=== PATIENT | female | born 1940 | race Caucasian/White ===

== ENCOUNTER 2018-03-05 11:50 | Emergency (ER) | payer MEDICARE, OTHER ==
[~2018-03-05] VITALS: Ht 154.9 cm; Wt 62.6 kg
[~2018-03-05 11:50] MED LIST: AMLO10TA2 PO; ATEN50TA PO; ATOR40TA59 PO; CLOP75TA PO; ESOM40CA PO; HYDR-971 PO; HYDR12.53 PO; LISI-130 PO; LISI-334 PO; OMEP40CA5 PO; ONDA4TAB10 SL; POTA20PA PO; SIMV20TA3 PO
[2018-03-05] MEDS ORDERED: IV NORMAL SALINE 1000ML BAG 1,000 ML IV ONE (12:00)
[2018-03-05 12:05] LABS: BASO % 1 % (0-3); EOS # 0.1 x10^3/uL (0.0-0.7); EOS % 2 % (0-3); HEMATOCRIT 42.3 % (36.0-47.0); HEMOGLOBIN 14.5 g/dL (12.0-15.5); LYMPH # 1.7 x10^3/uL (1.0-4.8); LYMPH % 34 % (24-48); MEAN CORPUSCULAR HEMOGLOBIN 32 pg (25-35); MEAN CORPUSCULAR HGB CONC 34 g/dL (31-37); MEAN CORPUSCULAR VOLUME 94 fL (79-100); MONO # 0.5 x10^3/uL (0.0-1.1); MONO % 9 % (0-9); NEUT # 2.7 x10^3uL (1.8-7.7); NEUT % 53 % (31-73); PLATELET COUNT 119 x10^3/uL (140-400); RED BLOOD COUNT 4.53 x10^6/uL (3.50-5.40); RED CELL DISTRIBUTION WIDTH 14.6 % (11.5-14.5); WHITE BLOOD COUNT 5.1 x10^3/uL (4.0-11.0)
[2018-03-05 12:15] LABS: PROTHROMBIN TIME PATIENT 13.3 SEC (11.7-14.0)
[2018-03-05 12:19] LABS: CALCIUM 9.1 mg/dL (8.5-10.1); CREATININE 1.6 mg/dL (0.6-1.0); GFR 31.1; POTASSIUM 3.3 mmol/L (3.5-5.1)
--- NOTE | 2018-03-05 12:24 | RAD ---
EXAM: CHEST 1 VIEW History: Weakness COMPARISON: 05/24/2017 TECHNIQUE: Single portable radiograph of the chest FINDINGS: The cardiac silhouette is unremarkable. The lungs are clear bilaterally. The costophrenic sulci are clear and well demarcated. IMPRESSION: No radiographic evidence of an acute cardiopulmonary process. Electronically signed by: Ulices Peña MD (03/05/2018 12:20 PM) [id number]
[2018-03-05 12:25] LABS: ALBUMIN 3.4 g/dL (3.4-5.0); ALBUMIN/GLOBULIN RATIO 0.8 (1.0-1.7); MAGNESIUM 1.5 mg/dL (1.8-2.4); TOTAL BILIRUBIN 0.5 mg/dL (0.2-1.0); TOTAL PROTEIN 7.5 g/dL (6.4-8.2)
--- NOTE | 2018-03-05 12:28 | RAD ---
CT HEAD INDICATION: WEAKNESS, altered mental status, PRIOR SENT COMPARISON: None Available. TECHNIQUE: 5 mm contiguous axial images were obtained from the skull base to the vertex. Exposure: One or more of the following individualized dose reduction techniques were utilized for this examination: 1. Automated exposure control 2. Adjustment of the mA and/or kV according to patient size 3. Use of iterative reconstruction technique FINDINGS: Moderate-sized hypodensity identified in the posterior left parietal lobe likely known infarct . Mild bilateral periventricular white matter hypodensities likely chronic small vessel ischemic disease. No evidence of acute intracranial hemorrhage. No extra-axial fluid collections. No mass effect or midline shift. Ventricular size is appropriate. Basal cisterns are patent. No fractures identified.Globes and orbits are within normal limits. Mild mucosal thickening identified in the right maxillary sinus. IMPRESSION: Moderate-sized hypodensity identified in the posterior left parietal lobe likely known infarct (as seen on MRI from 05/25/2017). If there is clinical suspicion for acute infarct, MRI is recommended. Electronically signed by: Ulices Peña MD (03/05/2018 12:24 PM) [id number]
[2018-03-05 12:40] LABS: CREATINE KINASE 32 U/L (26-192)
--- NOTE | 2018-03-05 13:18 | EKG ---
[facility] [address] [place] [address] Test Date: 2018-03-05 Test Time: 11:55:28 Pat Name: JOEL WINTER Department: Room: Gender: F Senior [employer] Developer: AVINASH : 1940 Requested By: ULYSSES ZAIDI Order Number: [id number] Reading MD: Nicola Renee MD Measurements Intervals [place] Rate: 71 P: 62 [place]: 204 QRS: 14 QRSD: 86 T: 165 QT: 388 QTc: 426 Interpretive Statements SINUS RHYTHM LVH WITH REPOLARIZATION ABNORMALITY Electronically Signed On 03-06-2018 15:26:25 CDT by Nicola Renee MD
[2018-03-05 13:20] LABS: PLT ESTIMATE DECREASED (ADEQUATE)
[2018-03-05] MEDS ORDERED: NICOTINE 21MG PATCH. TD SCH (13:41)
[2018-03-05 13:56] LABS: BARBITURATES NEG (NEG); BENZODIAZEPINES NEG (NEG); CANNABINOIDS NEG (NEG); COCAINE NEG (NEG); METHADONE NEG (NEG); OPIATES NEG (NEG); PHENCYCLIDINE NEG (NEG)
[2018-03-05 13:57] LABS: AMPHETAMINE/METHAMPHETAMINE NEG (NEG)
[2018-03-05] MEDS ORDERED: MAGNESIUM HYDROXIDE 2,400 MG/30 ML ORAL.SUSP. PO PRN (14:00)
[2018-03-05] MEDS ORDERED: oxyCODONE IR 5 MG TABLET PO PRN (14:00)
[2018-03-05] MEDS ORDERED: HYDROcodone/APAP 5/325MG 1 TAB TABLET PO PRN (14:00)
[2018-03-05] MEDS ORDERED: PROCHLORPERAZINE 25 MG SUPP.RECT. PR PRN (14:00)
[2018-03-05] MEDS ORDERED: CALCIUM CARBONATE 500 MG TAB.CHEW PO PRN (14:00)
[2018-03-05] MEDS ORDERED: MAG HYDROX/ALUMINUM HYD/SIMETH 30 ML ORAL.SUSP PO PRN (14:00)
[2018-03-05] MEDS ORDERED: ONDANSETRON ODT 4 MG TAB.RAPDIS. PO PRN (14:00)
[2018-03-05] MEDS ORDERED: ACETAMINOPHEN 325 MG TABLET. PO PRN (14:00)
[2018-03-05] MEDS ORDERED: BISACODYL 10 MG SUPP.RECT. PR PRN (14:00)
[2018-03-05] MEDS ORDERED: PROCHLORPERAZINE 10 MG/2 ML VIAL. IV PRN (14:00)
[2018-03-05] MEDS ORDERED: POTASSIUM CHLORIDE 20 MEQ TABLET.ER. PO ONE (14:00)
[2018-03-05] MEDS ORDERED: fentaNYL PF VIAL 100 MCG/2 ML VIAL IV PRN (14:00)
[2018-03-05] MEDS ORDERED: ONDANSETRON PF 4 MG/2 ML VIAL. IV PRN (14:00)
[2018-03-05] MEDS ORDERED: IV 1/2 NORMAL SALINE 1,000 ML IV ONE (14:00)
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
[2018-03-05 14:15] VITALS: BP 133/63
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
[2018-03-05 16:42] LABS: BILIRUBIN,URINE NEGATIVE (NEG); CLARITY,URINE CLEAR; NITRITE,URINE NEGATIVE (NEG); PROTEIN,URINE NEGATIVE (NEG-TRACE); UROBILINOGEN,URINE 0.2 mg/dL (0.2 mg/dL)
[2018-03-05 16:51] LABS: RBC,URINE OCC /HPF (0-2)
[2018-03-05 16:52] LABS: BACTERIA,URINE MODERATE /HPF (0-FEW); COLOR,URINE STRAW; SQUAMOUS EPITHELIAL CELL,UR MANY /LPF
[2018-03-05] MEDS ORDERED: ATORVASTATIN CALCIUM 40 MG TABLET. PO SCH (21:00)
[2018-03-05] MEDS ORDERED: DOCUSATE SODIUM 100 MG CAPSULE. PO SCH (21:00)
[2018-03-06] MEDS ORDERED: PANTOPRAZOLE 40 MG TABLET.DR. PO SCH (07:30)
[2018-03-06] MEDS ORDERED: CLOPIDOGREL BISULFATE 75 MG TABLET PO SCH (08:00)
[2018-03-06] MEDS ORDERED: POTASSIUM CHLORIDE 20 MEQ TABLET.ER. PO SCH (08:00)
[2018-03-06] MEDS ORDERED: amLODIPine BESYLATE 10 MG TABLET PO SCH (09:00)
[2018-03-06] MEDS ORDERED: LISINOPRIL 20 MG TABLET PO SCH (09:00)
[2018-03-06] MEDS ORDERED: hydroCHLOROthiazide 12.5 MG CAPSULE PO SCH (09:00)
== END 2018-03-05 14:57 | disposition home or self-care (01) ==
LOC: ER 11:50 → 5 SOUTH 13:50 → UNDOADMIN 13:50 → ER 14:57
DX: F43.9 Reaction to severe stress, unspecified (principal); R53.1 Weakness; R00.1 Bradycardia, unspecified; F17.200 Nicotine dependence, unspecified, uncomplicated; E78.00 Pure hypercholesterolemia, unspecified; Z90.49 Acquired absence of other specified parts of digestive tract; Z90.89 Acquired absence of other organs; Z86.73 Personal history of transient ischemic attack (TIA), and cerebral infarction without residual deficits; Z88.5 Allergy status to narcotic agent
CPT/HCPCS: 36415; 70450; 71045; 80053; 80307; 81001; 82553; 83735; 83880; 84443; 84484; 85025; 85610; 87086; 93005; 99285; J7030; G0479

== ENCOUNTER 2018-05-22 17:02 | Inpatient (IN) | payer MEDICARE, OTHER ==
[~2018-05-22] VITALS: Ht 154.9 cm; Wt 46.7 kg
[~2018-05-22 17:02] MED LIST changes: -AMLO10TA2 PO; +AMLO10TA6 PO; -POTA20PA PO; +POTA20PA30 PO
[2018-05-22 18:28] LABS: BASO % 1 % (0-3); EOS # 0.1 x10^3/uL (0.0-0.7); EOS % 2 % (0-3); HEMATOCRIT 41.3 % (36.0-47.0); HEMOGLOBIN 13.9 g/dL (12.0-15.5); LYMPH % 23 % (24-48); MEAN CORPUSCULAR HEMOGLOBIN 31 pg (25-35); MEAN CORPUSCULAR HGB CONC 34 g/dL (31-37); MEAN CORPUSCULAR VOLUME 93 fL (79-100); MONO # 0.4 x10^3/uL (0.0-1.1); MONO % 10 % (0-9); NEUT # 2.8 x10^3uL (1.8-7.7); NEUT % 65 % (31-73); PLATELET COUNT 60 x10^3/uL (140-400); RED BLOOD COUNT 4.43 x10^6/uL (3.50-5.40); RED CELL DISTRIBUTION WIDTH 16.2 % (11.5-14.5); WHITE BLOOD COUNT 4.4 x10^3/uL (4.0-11.0)
[2018-05-22] MEDS ORDERED: ONDANSETRON PF 4 MG/2 ML VIAL. IV ONE (18:30)
[2018-05-22] MEDS ORDERED: IV NORMAL SALINE 1000ML BAG 1,000 ML IV ONE (18:30)
[2018-05-22 18:38] LABS: CALCIUM 9.1 mg/dL (8.5-10.1); CREATININE 3.5 mg/dL (0.6-1.0); GFR 12.6; POTASSIUM 5.2 mmol/L (3.5-5.1)
[2018-05-22 18:44] LABS: ALBUMIN 3.2 g/dL (3.4-5.0); ALBUMIN/GLOBULIN RATIO 0.9 (1.0-1.7); MAGNESIUM 1.5 mg/dL (1.8-2.4); TOTAL BILIRUBIN 0.5 mg/dL (0.2-1.0); TOTAL PROTEIN 6.6 g/dL (6.4-8.2)
[2018-05-22 19:00] LABS: PLT ESTIMATE DECREASED (ADEQUATE)
--- NOTE | 2018-05-22 19:54 | PHYS DOC ---
Past Medical History Past Medical History: A-Fib, CVA, Depression, GERD, High Cholesterol, Hypertension, Seizure, Other Additional Past Medical Histor: THROMBOCYTOPENIA Past Surgical History: Appendectomy, Cholecystectomy Alcohol Use: None Drug Use: None Adult General Chief Complaint Chief Complaint: OTHER COMPLAINTS HPI HPI Patient is a 77 year old female who presents with granddaughter for evaluation. Patient is alert to self year only. Grand-daughter is primary caregiver. She reports significant memory/functional decline over the past 3-4 months. Frequently confused and poor memory recall. Pt unable to contribute to history. Grand-daughter reports poor PO intake over the past 1-2 weeks. Pt reports nausea, ?gagging sensation with eating. Seen by PCP and started on zofran and Cipro for ?UTI. No improvement. Sent by PCP to ED for evaluation as pt has had increased generalized weakness. Pt denies any abdominal pain. no GI bleed symptoms. Review of Systems Review of Systems Constitutional: Denies fever or chills [] Eyes: Denies change in visual acuity, redness, or eye pain [] HENT: Denies nasal congestion or sore throat [] Respiratory: Denies cough or shortness of breath [] Cardiovascular: No chest pain, no orthopnea, no lower extremity edema GI: Denies abdominal pain, vomiting, bloody stools or diarrhea []Nausea present : Denies dysuria or hematuria [] Musculoskeletal: Denies back pain or joint pain [] Integument: Denies rash or skin lesions [] Neurologic: Denies headache, focal weakness or sensory changes [] Endocrine: Denies polyuria or polydipsia [] All other systems were reviewed and found to be within normal limits, except as documented in this note. Current Medications Current Medications Current Medications Medications (Trade) Dose Ordered Sig/Dulce Start Time Stop Time Status Last Admin Dose Admin Ondansetron HCl (Zofran) 8 mg 1X ONCE 05/22/18 18:30 05/22/18 18:31 DC 05/22/18 18:31 8 MG Sodium Chloride 1,000 ml @ 1,000 mls/hr 1X ONCE 05/22/18 18:30 05/22/18 19:29 DC 05/22/18 18:32 1,000 MLS/HR Allergies Allergies Allergies Coded Allergies Type Severity Reaction Last Updated Verified morphine Adverse Reaction Severe nausea/abdominal pain 12/24/14 Yes Physical Exam Physical Exam Constitutional: Well developed, well nourished, no acute distress, non-toxic appearance. [] HENT: Normocephalic, atraumatic, Eyes: PERRLA, EOMI, Neck: Normal range of motion, no tenderness, supple, no stridor. [] Cardiovascular:Heart rate regular rhythm, no murmur [] Lungs & Thorax: Bilateral breath sounds clear to auscultation [] Abdomen: Bowel sounds normal, soft, no tenderness, no masses, no pulsatile masses. [] Skin: Warm, dry, no erythema, no rash. [] Back: No tenderness, no CVA tenderness. [] Extremities: No tenderness, no edema. [] Neurologic: Alert and oriented X 2, no focal deficits noted. [] Psychologic: Affect normal, judgement normal, mood normal. [] Current Patient Data Vital Signs Vital Signs Date Time Temp Pulse Resp B/P (MAP) Pulse Ox O2 Delivery O2 Flow Rate FiO2 05/22/18 19:30 74 112/61 (78) 97 Room Air 05/22/18 17:36 97.4 20 97.4 Lab Values Laboratory Tests Test 05/22/18 18:02 White Blood Count 4.4 x10^3/uL (4.0-11.0) Red Blood Count 4.43 x10^6/uL (3.50-5.40) Hemoglobin 13.9 g/dL (12.0-15.5) Hematocrit 41.3 % (36.0-47.0) Mean Corpuscular Volume 93 fL (79-100) Mean Corpuscular Hemoglobin 31 pg (25-35) Mean Corpuscular Hemoglobin Concent 34 g/dL (31-37) Red Cell Distribution Width 16.2 % (11.5-14.5) H Platelet Count 60 x10^3/uL (140-400) L Neutrophils (%) (Auto) 65 % (31-73) Lymphocytes (%) (Auto) 23 % (24-48) L Monocytes (%) (Auto) 10 % (0-9) H Eosinophils (%) (Auto) 2 % (0-3) Basophils (%) (Auto) 1 % (0-3) Neutrophils # (Auto) 2.8 x10^3uL (1.8-7.7) Lymphocytes # (Auto) 1.0 x10^3/uL (1.0-4.8) Monocytes # (Auto) 0.4 x10^3/uL (0.0-1.1) Eosinophils # (Auto) 0.1 x10^3/uL (0.0-0.7) Basophils # (Auto) 0.0 x10^3/uL (0.0-0.2) Platelet Estimate Decreased (ADEQUATE) Large Platelets Occ Sodium Level 132 mmol/L (136-145) L Potassium Level 5.2 mmol/L (3.5-5.1) H Chloride Level 99 mmol/L (98-107) Carbon Dioxide Level 14 mmol/L (21-32) L Anion Gap 19 (6-14) H Blood Urea Nitrogen 55 mg/dL (7-20) H Creatinine 3.5 mg/dL (0.6-1.0) H Estimated GFR (Cockcroft-Gault) 12.6 BUN/Creatinine Ratio 16 (6-20) Glucose Level 81 mg/dL (70-99) Calcium Level 9.1 mg/dL (8.5-10.1) Magnesium Level 1.5 mg/dL (1.8-2.4) L Total Bilirubin 0.5 mg/dL (0.2-1.0) Aspartate Amino Transferase (AST) 15 U/L (15-37) Alanine Aminotransferase (ALT) 9 U/L (14-59) L Alkaline Phosphatase 59 U/L (46-116) Troponin I Quantitative 0.039 ng/mL (0.000-0.055) Total Protein 6.6 g/dL (6.4-8.2) Albumin 3.2 g/dL (3.4-5.0) L Albumin/Globulin Ratio 0.9 (1.0-1.7) L Lipase 112 U/L (73-393) Laboratory Tests 05/22/18 18:02 Laboratory Tests 05/22/18 18:02 EKG EKG NSR, HR 71. no acute ST segment changes[] Radiology/Procedures Radiology/Procedures [] Course & Med Decision Making Course & Med Decision Making Pertinent Labs and Imaging studies reviewed. (See chart for details) []Patient with prerenal BRODIE likely secondary to her poor PO intake. Underlying reason for her poor PO intake is not clear at this time. IV fluids started in the ER. Will admit for continued management. Potassium also elevated but no significant ST segment changes and likely also due to dehydration. Will admit for continued management. Confirmed DNR status with the patient and her daughter. Discussed with Dr. Lind who is agreeable to admission. Patient remained hemodynamically stable in the ER. Dragon Disclaimer Dragon Disclaimer This electronic medical record was generated, in whole or in part, using a voice recognition dictation system. Departure Departure Impression: Primary Impression: BRODIE (acute kidney injury) Additional Impressions: Dehydration Hyperkalemia Disposition: 01 HOME, SELF-CARE Admitting Physician: Other Condition: GUARDED Referrals: YUE BREEN MD (PCP) Problem Qualifiers CHEMO BARBER DO May 22, 2018 19:54
[2018-05-22 20:11] LABS: BILIRUBIN,URINE MODERATE (NEG); CLARITY,URINE CLEAR; COLOR,URINE YELLOW; NITRITE,URINE NEGATIVE (NEG); PROTEIN,URINE NEGATIVE (NEG-TRACE); UROBILINOGEN,URINE 0.2 mg/dL (0.2 mg/dL)
[2018-05-22 20:28] LABS: BACTERIA,URINE FEW /HPF (0-FEW); RBC,URINE 0 /HPF (0-2); SQUAMOUS EPITHELIAL CELL,UR FEW /LPF; WBC,URINE OCC /HPF (0-4)
[2018-05-22 20:29] LABS: AMORPHOUS SEDIMENT,UR PRESENT /HPF; HYALINE CASTS, URINE MODERATE /HPF
[2018-05-22] MEDS ORDERED: ESCITALOPRAM OX10 MG PO (22:45)
[2018-05-22] MEDS ORDERED: APIX5TAB PO (22:45)
[2018-05-22] MEDS ORDERED: CIPR250T PO (22:45)
[2018-05-22] MEDS ORDERED: AMLO5TAB7 PO (22:45)
[2018-05-22] MEDS ORDERED: LEVE500T6 PO (22:45)
[2018-05-22] MEDS ORDERED: LISI-334 PO (22:45)
[2018-05-22 23:00] VITALS: BP 117/78
[2018-05-22] MEDS ORDERED: MAGNESIUM SULFATE 1GM 100 ML IV ONE (23:30)
[2018-05-22] MEDS: IV NORMAL SALINE 1000ML BAG 1,000 ML IV SCH (23:46)
[2018-05-23 03:00] VITALS: BP 107/61
--- NOTE | 2018-05-23 06:37 | EKG ---
[facility] [address] [place] [address] Test Date: 2018-05-22 Test Time: 18:05:25 Pat Name: JOEL WINTER Department: Room: 580 1 Gender: F Vice President Payer: : 1940 Requested By: CHEMO BRABER Order Number: [id number] Reading MD: Jad England Measurements Intervals [place] Rate: 71 P: 76 DE: 166 QRS: 32 QRSD: 80 T: -118 QT: 392 QTc: 431 Interpretive Statements SINUS RHYTHM LVH WITH REPOLARIZATION ABNORMALITY NONSPECIFIC ST-T WAVE CHANGES. ABNORMAL ECG RI6.01 Compared to ECG 03/05/2018 11:55:28 No significant changes Electronically Signed On 05-26-2018 12:56:41 MULESER by Jad England
[2018-05-23 07:00] VITALS: BP 105/60
[2018-05-23] MEDS: ONDANSETRON ODT 4 MG TAB.RAPDIS. PO SCH ×4 (07:48→18:00)
[2018-05-23] MEDS: PANTOPRAZOLE 40 MG TABLET.DR. PO SCH (07:48)
[2018-05-23] MEDS: APIXABAN 5 MG TABLET. PO SCH ×2 (08:28→20:25)
[2018-05-23] MEDS: CITALOPRAM 20 MG TABLET. PO SCH (08:28)
[2018-05-23] MEDS: amLODIPine BESYLATE 5 MG TABLET PO SCH (08:28)
[2018-05-23] MEDS: levETIRAcetam 500 MG TABLET PO SCH ×2 (08:29→20:25)
[2018-05-23 11:00] VITALS: BP 100/58
--- NOTE | 2018-05-23 11:39 | PDOC1 ---
History and Physical Date of Admission Date of Admission DATE: 05/23/18 TIME: 11:39 Identification/Chief Complaint Chief Complaint presented to ER with granddaughter for evaluation. Patient is alert to self year only. Grand-daughter reports significant memory/functional decline over the past 3- 4 months. Frequently confused and poor memory recall. Grand-daughter reports poor PO intake over the past 1-2 weeks. Pt reports nausea, ?gagging sensation with eating. Seen by PCP and started on zofran and Cipro for ?UTI. No improvement. Sent by PCP to ED for evaluation as pt has had increased generalized weakness. Pt denies any abdominal pain. no GI bleed symptoms. Past Medical History Past Medical History Past Medical History Past Medical History: A-Fib, CVA, Depression, GERD, High Cholesterol, Hypertension, Seizure, Other Additional Past Medical Histor: THROMBOCYTOPENIA Past Surgical History: Appendectomy, Cholecystectomy Alcohol Use: None Drug Use: None nonsmoker fhx htn Cardiovascular: CAD, HTN GI: GERD Hepatobiliary: No pertinent hx Musculoskeletal: Osteoarthritis, Other Renal/: Chronic renal failure Past Surgical History Past Surgical History: Appendectomy, Cholecystectomy, Cataract Removal, C- Section, Total hip replacement, Other Family History Family History: Hypertension Family History: Parent Social History Smoke: No ALCOHOL: none Drugs: None Current Problem List Problem List Problems Medical Problems: (1) BRODIE (acute kidney injury) Status: Acute (2) Dehydration Status: Acute (3) Hyperkalemia Status: Acute Current Medications Current Medications Current Medications Sodium Chloride 1,000 ml @ 1,000 mls/hr 1X ONCE IV Last administered on at 18:32; Start 05/22/18 at 18:30; Stop 05/22/18 at 19:29; Status DC Ondansetron HCl (Zofran) 8 mg 1X ONCE IV Last administered on 05/22/18at 18:31 ; Start 05/22/18 at 18:30; Stop 05/22/18 at 18:31; Status DC Magnesium Sulfate/ Dextrose 100 ml @ 100 mls/hr 1X ONCE IV Last administered on 05/22/18at 23:47; Start 05/22/18 at 23:30; Stop 05/23/18 at 00:29; Status DC Sodium Chloride 1,000 ml @ 75 mls/hr [id number] IV Last administered on at 23:46; Start 05/22/18 at 23:30 Amlodipine Besylate (Norvasc) 5 mg DAILY PO Last administered on 05/23/18at 08: 28; Start 05/23/18 at 09:00 Apixaban (Eliquis) 5 mg BID PO Last administered on 05/23/18at 08:28; Start 05/23/18 at 09:00 Atorvastatin Calcium (Lipitor) 40 mg QHS PO ; Start 05/23/18 at 21:00 Levetiracetam (Keppra) 500 mg BID PO Last administered on 05/23/18at 08:29; Start 05/23/18 at 09:00 Ondansetron HCl (Zofran Odt) 4 mg Q6HRS PO Last administered on 05/23/18at 07:48 ; Start 05/23/18 at 00:00 Citalopram Hydrobromide (CeleXA) 20 mg DAILY PO Last administered on 05/23/18at 08:28; Start 05/23/18 at 09:00 Pantoprazole Sodium (Protonix) 40 mg DAILYAC PO Last administered on 05/23/18at 07:48; Start 05/23/18 at 07:30 Active Scripts Active Atorvastatin Calcium 40 Mg Tablet 40 Mg PO QHS 30 Days Reported Levetiracetam 500 Mg Tablet 1 Tab PO BID Eliquis (Apixaban) 5 Mg Tablet 5 Mg PO BID Lisinopril 20 Mg Tablet 1 Tab PO DAILY Escitalopram Oxalate 10 Mg Tablet 1 Tab PO DAILY Amlodipine Besylate 5 Mg Tablet 5 Mg PO DAILY Ciprofloxacin Hcl 250 Mg Tablet 1 Tab PO BID Omeprazole 40 Mg Capsule.dr 40 Mg PO DAILY Zofran Odt (Ondansetron) 4 Mg Tab.rapdis 1 Tab SL Q6HRS Allergies Allergies: Coded Allergies: pneumococcal vaccine (Verified Allergy, Unknown, Swelling, 05/22/18) family reports blackish-purple down entire arm of injection morphine (Verified Adverse Reaction, Severe, nausea/abdominal pain, 12/24/14 ) ROS Review of System Review of Systems Review of Systems Constitutional: Denies fever or chills [] Eyes: Denies change in visual acuity, redness, or eye pain [] HENT: Denies nasal congestion or sore throat [] Respiratory: Denies cough or shortness of breath [] Cardiovascular: No chest pain, no orthopnea, no lower extremity edema GI: Denies abdominal pain, vomiting, bloody stools or diarrhea []Nausea present : Denies dysuria or hematuria [] Musculoskeletal: Denies back pain or joint pain [] Integument: Denies rash or skin lesions [] Neurologic: Denies headache, focal weakness or sensory changes [] Endocrine: Denies polyuria or polydipsia [] 14 PT systems were reviewed and found to be within normal limits, except as documented . Current Medications Musculoskeletal: Yes Joint Stiffness Physical Exam Physical Exam Physical Exam Physical Exam Constitutional: Well developed, well nourished, no acute distress, non-toxic appearance. [] HENT: Normocephalic, atraumatic, Eyes: PERRLA, EOMI, Neck: Normal range of motion, no tenderness, supple, no stridor. [] Cardiovascular:Heart rate regular rhythm, no murmur [] Lungs & Thorax: Bilateral breath sounds clear to auscultation [] Abdomen: Bowel sounds normal, soft, no tenderness, no masses, no pulsatile masses. [] Skin: Warm, dry, no erythema, no rash. [] Back: No tenderness, no CVA tenderness. [] Extremities: No tenderness, no edema. [] Neurologic: Alert and oriented X 2, no focal deficits noted. [] Psychologic: Affect normal, , mood normal. [] General: Cooperative HEENT: Atraumatic, PERRLA Abdomen: Normal bowel sounds, Soft Rectal Exam: not examined PELVIC: Examination not indicated Neuro: Cranial nerves 3-12 NL Vitals Vitals Vital Signs Date Time Temp Pulse Resp B/P (MAP) Pulse Ox O2 Delivery O2 Flow Rate FiO2 05/23/18 08:28 68 105/60 05/23/18 08:00 Room Air 05/23/18 07:00 97.4 12 94 97.4 Labs Labs Laboratory Tests Test 05/22/18 18:02 05/22/18 20:00 White Blood Count 4.4 x10^3/uL (4.0-11.0) Red Blood Count 4.43 x10^6/uL (3.50-5.40) Hemoglobin 13.9 g/dL (12.0-15.5) Hematocrit 41.3 % (36.0-47.0) Mean Corpuscular Volume 93 fL (79-100) Mean Corpuscular Hemoglobin 31 pg (25-35) Mean Corpuscular Hemoglobin Concent 34 g/dL (31-37) Red Cell Distribution Width 16.2 % (11.5-14.5) Platelet Count 60 x10^3/uL (140-400) Neutrophils (%) (Auto) 65 % (31-73) Lymphocytes (%) (Auto) 23 % (24-48) Monocytes (%) (Auto) 10 % (0-9) Eosinophils (%) (Auto) 2 % (0-3) Basophils (%) (Auto) 1 % (0-3) Neutrophils # (Auto) 2.8 x10^3uL (1.8-7.7) Lymphocytes # (Auto) 1.0 x10^3/uL (1.0-4.8) Monocytes # (Auto) 0.4 x10^3/uL (0.0-1.1) Eosinophils # (Auto) 0.1 x10^3/uL (0.0-0.7) Basophils # (Auto) 0.0 x10^3/uL (0.0-0.2) Platelet Estimate Decreased (ADEQUATE) Large Platelets Occ Sodium Level 132 mmol/L (136-145) Potassium Level 5.2 mmol/L (3.5-5.1) Chloride Level 99 mmol/L (98-107) Carbon Dioxide Level 14 mmol/L (21-32) Anion Gap 19 (6-14) Blood Urea Nitrogen 55 mg/dL (7-20) Creatinine 3.5 mg/dL (0.6-1.0) Estimated GFR (Cockcroft-Gault) 12.6 BUN/Creatinine Ratio 16 (6-20) Glucose Level 81 mg/dL (70-99) Calcium Level 9.1 mg/dL (8.5-10.1) Magnesium Level 1.5 mg/dL (1.8-2.4) Total Bilirubin 0.5 mg/dL (0.2-1.0) Aspartate Amino Transf (AST/SGOT) 15 U/L (15-37) Alanine Aminotransferase (ALT/SGPT) 9 U/L (14-59) Alkaline Phosphatase 59 U/L (46-116) Troponin I Quantitative 0.039 ng/mL (0.000-0.055) Total Protein 6.6 g/dL (6.4-8.2) Albumin 3.2 g/dL (3.4-5.0) Albumin/Globulin Ratio 0.9 (1.0-1.7) Lipase 112 U/L (73-393) Urine Collection Type U cath Urine Color Yellow Urine Clarity Clear Urine pH 5.0 Urine Specific [place] 1.020 Urine Protein Negative mg/dL (NEG-TRACE) Urine Glucose (UA) Negative mg/dL (NEG) Urine Ketones (Stick) 15 mg/dL (NEG) Urine Blood Negative (NEG) Urine Nitrite Negative (NEG) Urine Bilirubin Moderate (NEG) Urine Urobilinogen Dipstick 0.2 mg/dL (0.2 mg/dL) Urine Leukocyte Esterase Negative (NEG) Urine RBC 0 /HPF (0-2) Urine WBC Occ /HPF (0-4) Urine Squamous Epithelial Cells Few /LPF Urine Amorphous Sediment Present /HPF Urine Bacteria Few /HPF (0-FEW) Urine Hyaline Casts Moderate /HPF Urine Mucus Mod /LPF Laboratory Tests Test 05/22/18 18:02 05/22/18 20:00 White Blood Count 4.4 x10^3/uL (4.0-11.0) Red Blood Count 4.43 x10^6/uL (3.50-5.40) Hemoglobin 13.9 g/dL (12.0-15.5) Hematocrit 41.3 % (36.0-47.0) Mean Corpuscular Volume 93 fL (79-100) Mean Corpuscular Hemoglobin 31 pg (25-35) Mean Corpuscular Hemoglobin Concent 34 g/dL (31-37) Red Cell Distribution Width 16.2 % (11.5-14.5) Platelet Count 60 x10^3/uL (140-400) Neutrophils (%) (Auto) 65 % (31-73) Lymphocytes (%) (Auto) 23 % (24-48) Monocytes (%) (Auto) 10 % (0-9) Eosinophils (%) (Auto) 2 % (0-3) Basophils (%) (Auto) 1 % (0-3) Neutrophils # (Auto) 2.8 x10^3uL (1.8-7.7) Lymphocytes # (Auto) 1.0 x10^3/uL (1.0-4.8) Monocytes # (Auto) 0.4 x10^3/uL (0.0-1.1) Eosinophils # (Auto) 0.1 x10^3/uL (0.0-0.7) Basophils # (Auto) 0.0 x10^3/uL (0.0-0.2) Platelet Estimate Decreased (ADEQUATE) Large Platelets Occ Sodium Level 132 mmol/L (136-145) Potassium Level 5.2 mmol/L (3.5-5.1) Chloride Level 99 mmol/L (98-107) Carbon Dioxide Level 14 mmol/L (21-32) Anion Gap 19 (6-14) Blood Urea Nitrogen 55 mg/dL (7-20) Creatinine 3.5 mg/dL (0.6-1.0) Estimated GFR (Cockcroft-Gault) 12.6 BUN/Creatinine Ratio 16 (6-20) Glucose Level 81 mg/dL (70-99) Calcium Level 9.1 mg/dL (8.5-10.1) Magnesium Level 1.5 mg/dL (1.8-2.4) Total Bilirubin 0.5 mg/dL (0.2-1.0) Aspartate Amino Transf (AST/SGOT) 15 U/L (15-37) Alanine Aminotransferase (ALT/SGPT) 9 U/L (14-59) Alkaline Phosphatase 59 U/L (46-116) Troponin I Quantitative 0.039 ng/mL (0.000-0.055) Total Protein 6.6 g/dL (6.4-8.2) Albumin 3.2 g/dL (3.4-5.0) Albumin/Globulin Ratio 0.9 (1.0-1.7) Lipase 112 U/L (73-393) Urine Collection Type U cath Urine Color Yellow Urine Clarity Clear Urine pH 5.0 Urine Specific [place] 1.020 Urine Protein Negative mg/dL (NEG-TRACE) Urine Glucose (UA) Negative mg/dL (NEG) Urine Ketones (Stick) 15 mg/dL (NEG) Urine Blood Negative (NEG) Urine Nitrite Negative (NEG) Urine Bilirubin Moderate (NEG) Urine Urobilinogen Dipstick 0.2 mg/dL (0.2 mg/dL) Urine Leukocyte Esterase Negative (NEG) Urine RBC 0 /HPF (0-2) Urine WBC Occ /HPF (0-4) Urine Squamous Epithelial Cells Few /LPF Urine Amorphous Sediment Present /HPF Urine Bacteria Few /HPF (0-FEW) Urine Hyaline Casts Moderate /HPF Urine Mucus Mod /LPF Images Images TECHNIQUE: CT abdomen and pelvis without IV contrast with multiplanar reformats. COMPARISON: None FINDINGS: Limited evaluation of solid abdominal and pelvic organs due to lack of IV contrast. Heart is normal in size. No pericardial or pleural effusion. Clear lung bases. Simple cyst is seen in the segment 6 of the liver measuring 2.4 x 1 point for centimeter. Other scattered too small to characterize low attenuating lesions are seen in the left hepatic lobe. Noncontrast appearance of the spleen, pancreas, adrenals within normal limits. Multiple low attenuating lesions are seen in the right kidney. The largest such lesion measures 2.8 x 2.3 cm and demonstrates fluid density. The right kidney is atrophic. 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 No nephrolithiasis or hydronephrosis. No enlarged retroperitoneal or pelvic adenopathy. Tortuous abdominal aorta with focal outpouching along the right aortic wall measuring 1.7 x 1.1 cm. Diffuse ectasia of the abdominal aorta noted with moderate atherosclerotic disease. The maximum diameter of the abdominal aorta measures 2.6 cm. No free pelvic fluid or ascites. No bowel obstruction. Fat-containing left adnexal lesion measuring 4.1 x 2.7 cm is seen. Uterus is present and is anteverted. Urinary bladder within normal limits. Mild levoscoliosis of the thoracolumbar spine. No suspicious bony lesion. IMPRESSION: Limited evaluation of solid abdominal and pelvic organs due to lack of IV contrast. 1. 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 2. 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 Nonemergent MRI of the pelvis with IV contrast can be obtained for definite confirmation. 3. Diffuse ectasia of the abdominal aorta with small focal aneurysmal outpouching along the right aortic wall as described above. 4. Atrophic right kidney with multiple low attenuating lesions most likely simple cysts. Electronically signed by: Stanford Bardales DO (05/19/2018 4:30 PM) [facility] VTE Prophylaxis Ordered VTE Prophylaxis Devices: Yes VTE Pharmacological Prophylaxi: Yes Assessment/Plan Assessment/Plan IMPRESSION Acute renal failure dementia Atrophic right kidney with multiple low attenuating lesions most likely simple cysts. hyperlipidemia hypertension thrombocytopenia, follow plan iv fluid support nephrology consult hold nephrotoxic drugs daily labs renal us sq heparin dvt prophylaxis hold quinton VAUGHN MARK MD May 23, 2018 11:39
[2018-05-23 15:00] VITALS: BP 106/62
[2018-05-23] MEDS: IV NORMAL SALINE 1000ML BAG 1,000 ML IV SCH (16:11)
[2018-05-23 19:00] VITALS: BP 116/75
[2018-05-23] MEDS: ATORVASTATIN CALCIUM 40 MG TABLET. PO SCH (20:25)
[2018-05-23 22:38] LABS: CALCIUM 8.3 mg/dL (8.5-10.1); CREATININE 2.1 mg/dL (0.6-1.0); GFR 22.7; POTASSIUM 4.5 mmol/L (3.5-5.1)
[2018-05-23 23:00] VITALS: BP 120/70
[2018-05-24 03:00] VITALS: BP 115/71
[2018-05-24] MEDS: IV NORMAL SALINE 1000ML BAG 1,000 ML IV SCH ×2 (05:16→15:30)
[2018-05-24] MEDS: ONDANSETRON ODT 4 MG TAB.RAPDIS. PO SCH ×4 (05:16→18:00)
[2018-05-24 06:32] LABS: BASO % 1 % (0-3); EOS # 0.1 x10^3/uL (0.0-0.7); EOS % 3 % (0-3); HEMATOCRIT 38.2 % (36.0-47.0); HEMOGLOBIN 12.9 g/dL (12.0-15.5); LYMPH # 1.1 x10^3/uL (1.0-4.8); LYMPH % 30 % (24-48); MEAN CORPUSCULAR HEMOGLOBIN 31 pg (25-35); MEAN CORPUSCULAR HGB CONC 34 g/dL (31-37); MEAN CORPUSCULAR VOLUME 93 fL (79-100); MONO # 0.3 x10^3/uL (0.0-1.1); MONO % 9 % (0-9); NEUT # 2.2 x10^3uL (1.8-7.7); NEUT % 58 % (31-73); PLATELET COUNT 49 x10^3/uL (140-400); RED CELL DISTRIBUTION WIDTH 16.1 % (11.5-14.5); WHITE BLOOD COUNT 3.8 x10^3/uL (4.0-11.0)
[2018-05-24 06:39] LABS: ALBUMIN 2.6 g/dL (3.4-5.0); ALBUMIN/GLOBULIN RATIO 0.8 (1.0-1.7); CALCIUM 8.7 mg/dL (8.5-10.1); CREATININE 1.9 mg/dL (0.6-1.0); GFR 25.5; POTASSIUM 4.7 mmol/L (3.5-5.1); TOTAL BILIRUBIN 0.4 mg/dL (0.2-1.0)
[2018-05-24 07:00] VITALS: BP 120/73
--- NOTE | 2018-05-24 08:17 | RAD ---
Examination: Ultrasound kidneys HISTORY: History of acute renal failure COMPARISON: None available FINDINGS: The right kidney measures 8.5 x 3.5 x 4.4 cm. The left kidney measures 10.3 x 4.4 x 4.5 cm. The visualized aorta, IVC are patent. Echogenic appearing bilateral kidneys likely due to medical renal disease. Multiple cystic structures identified in the right kidney the largest measuring 2 cm. There is a 1 cm cystic structure identified in the left kidney. There is a 9 mm hyperechoic lesion identified in the left mid kidney. The urinary bladder is not clearly visualized due to Christine catheter balloon. Ectatic calcified aorta. IMPRESSION: 1. Echogenic appearing bilateral kidneys likely due to medical renal disease. Mildly atrophic appearing right kidney. 2. Cystic structures identified in the bilateral kidneys likely cysts with the largest measuring 2 cm in the right kidney. 3. 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 Electronically signed by: Ulices Peña MD (05/24/2018 8:14 AM) [facility]
--- NOTE | 2018-05-24 08:34 | PDOC ---
PROGRESS NOTES History of Present Illness History of Present Illness Assessment/Plan Assessment/Plan IMPRESSION Acute renal failure, improving, hypovolemic/ vasomotor dementia Atrophic right kidney with multiple low attenuating lesions most likely simple cysts. Echogenic appearing bilateral kidneys likely due to medical renal disease. Mildly atrophic appearing right kidney. hyperlipidemia hypertension thrombocytopenia, follow, consult heme plan iv fluid support nephrology consult hold nephrotoxic drugs daily labs renal us sq heparin dvt prophylaxis hold quinton Vitals Vitals Vital Signs Date Time Temp Pulse Resp B/P (MAP) Pulse Ox O2 Delivery O2 Flow Rate FiO2 05/24/18 07:00 97.6 65 18 120/73 (89) 95 Room Air 97.6 Physical Exam Physical Exam Eyes: PERRLA, EOMI, Neck: Normal range of motion, no tenderness, supple, no stridor. [] Cardiovascular:Heart rate regular rhythm, no murmur [] Lungs & Thorax: Bilateral breath sounds clear to auscultation [] Abdomen: Bowel sounds normal, soft, no tenderness, no masses, no pulsatile masses. [] Skin: Warm, dry, no erythema, no rash. [] Back: No tenderness, no CVA tenderness. [] Extremities: No tenderness, no edema. [] Neurologic: no focal deficits noted. [] Psychologic: Affect normal, , mood normal. [] General: Cooperative HEENT: Atraumatic, PERRLA Abdomen: Normal bowel sounds, Soft General: Alert, Cooperative, No acute distress, Other (confused to details, cooperative, pleasant) Heart: Regular rate, Normal S1 Lungs: Clear Abdomen: Normal bowel sounds, Soft, No tenderness Extremities: No clubbing, No cyanosis, No edema, No tenderness/swelling Skin: No significant lesion Labs LABS Examination: Ultrasound kidneys HISTORY: History of acute renal failure COMPARISON: None available FINDINGS: The right kidney measures 8.5 x 3.5 x 4.4 cm. The left kidney measures 10.3 x 4.4 x 4.5 cm. The visualized aorta, IVC are patent. Echogenic appearing bilateral kidneys likely due to medical renal disease. Multiple cystic structures identified in the right kidney the largest measuring 2 cm. There is a 1 cm cystic structure identified in the left kidney. There is a 9 mm hyperechoic lesion identified in the left mid kidney. The urinary bladder is not clearly visualized due to Christine catheter balloon. Ectatic calcified aorta. IMPRESSION: 1. Echogenic appearing bilateral kidneys likely due to medical renal disease. Mildly atrophic appearing right kidney. 2. Cystic structures identified in the bilateral kidneys likely cysts with the largest measuring 2 cm in the right kidney. 3. 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 Electronically signed by: Ulices Peña MD (05/24/2018 8:14 AM) [facility] Laboratory Tests Test 05/23/18 22:15 05/24/18 05:40 Sodium Level 136 mmol/L (136-145) 138 mmol/L (136-145) Potassium Level 4.5 mmol/L (3.5-5.1) 4.7 mmol/L (3.5-5.1) Chloride Level 106 mmol/L (98-107) 106 mmol/L (98-107) Carbon Dioxide Level 18 mmol/L (21-32) 20 mmol/L (21-32) Anion Gap 12 (6-14) 12 (6-14) Blood Urea Nitrogen 33 mg/dL (7-20) 31 mg/dL (7-20) Creatinine 2.1 mg/dL (0.6-1.0) 1.9 mg/dL (0.6-1.0) Estimated GFR (Cockcroft-Gault) 22.7 25.5 Glucose Level 65 mg/dL (70-99) 68 mg/dL (70-99) Calcium Level 8.3 mg/dL (8.5-10.1) 8.7 mg/dL (8.5-10.1) White Blood Count 3.8 x10^3/uL (4.0-11.0) Red Blood Count 4.10 x10^6/uL (3.50-5.40) Hemoglobin 12.9 g/dL (12.0-15.5) Hematocrit 38.2 % (36.0-47.0) Mean Corpuscular Volume 93 fL (79-100) Mean Corpuscular Hemoglobin 31 pg (25-35) Mean Corpuscular Hemoglobin Concent 34 g/dL (31-37) Red Cell Distribution Width 16.1 % (11.5-14.5) Platelet Count 49 x10^3/uL (140-400) Neutrophils (%) (Auto) 58 % (31-73) Lymphocytes (%) (Auto) 30 % (24-48) Monocytes (%) (Auto) 9 % (0-9) Eosinophils (%) (Auto) 3 % (0-3) Basophils (%) (Auto) 1 % (0-3) Neutrophils # (Auto) 2.2 x10^3uL (1.8-7.7) Lymphocytes # (Auto) 1.1 x10^3/uL (1.0-4.8) Monocytes # (Auto) 0.3 x10^3/uL (0.0-1.1) Eosinophils # (Auto) 0.1 x10^3/uL (0.0-0.7) Basophils # (Auto) 0.0 x10^3/uL (0.0-0.2) BUN/Creatinine Ratio 16 (6-20) Total Bilirubin 0.4 mg/dL (0.2-1.0) Aspartate Amino Transf (AST/SGOT) 13 U/L (15-37) Alanine Aminotransferase (ALT/SGPT) 6 U/L (14-59) Alkaline Phosphatase 48 U/L (46-116) Total Protein 6.0 g/dL (6.4-8.2) Albumin 2.6 g/dL (3.4-5.0) Albumin/Globulin Ratio 0.8 (1.0-1.7) Assessment and Plan Assessmemt and Plan Problems Medical Problems: (1) BRODIE (acute kidney injury) Status: Acute (2) Dehydration Status: Acute (3) Hyperkalemia Status: Acute Comment Review of Relevant I have reviewed the following items josee (where applicable) has been applied. Labs Laboratory Tests Test 05/22/18 18:02 05/22/18 20:00 05/23/18 22:15 05/24/18 05:40 White Blood Count 4.4 x10^3/uL (4.0-11.0) 3.8 x10^3/uL (4.0-11.0) Red Blood Count 4.43 x10^6/uL (3.50-5.40) 4.10 x10^6/uL (3.50-5.40) Hemoglobin 13.9 g/dL (12.0-15.5) 12.9 g/dL (12.0-15.5) Hematocrit 41.3 % (36.0-47.0) 38.2 % (36.0-47.0) Mean Corpuscular Volume 93 fL (79-100) 93 fL (79-100) Mean Corpuscular Hemoglobin 31 pg (25-35) 31 pg (25-35) Mean Corpuscular Hemoglobin Concent 34 g/dL (31-37) 34 g/dL (31-37) Red Cell Distribution Width 16.2 % (11.5-14.5) 16.1 % (11.5-14.5) Platelet Count 60 x10^3/uL (140-400) 49 x10^3/uL (140-400) Neutrophils (%) (Auto) 65 % (31-73) 58 % (31-73) Lymphocytes (%) (Auto) 23 % (24-48) 30 % (24-48) Monocytes (%) (Auto) 10 % (0-9) 9 % (0-9) Eosinophils (%) (Auto) 2 % (0-3) 3 % (0-3) Basophils (%) (Auto) 1 % (0-3) 1 % (0-3) Neutrophils # (Auto) 2.8 x10^3uL (1.8-7.7) 2.2 x10^3uL (1.8-7.7) Lymphocytes # (Auto) 1.0 x10^3/uL (1.0-4.8) 1.1 x10^3/uL (1.0-4.8) Monocytes # (Auto) 0.4 x10^3/uL (0.0-1.1) 0.3 x10^3/uL (0.0-1.1) Eosinophils # (Auto) 0.1 x10^3/uL (0.0-0.7) 0.1 x10^3/uL (0.0-0.7) Basophils # (Auto) 0.0 x10^3/uL (0.0-0.2) 0.0 x10^3/uL (0.0-0.2) Platelet Estimate Decreased (ADEQUATE) Large Platelets Occ Sodium Level 132 mmol/L (136-145) 136 mmol/L (136-145) 138 mmol/L (136-145) Potassium Level 5.2 mmol/L (3.5-5.1) 4.5 mmol/L (3.5-5.1) 4.7 mmol/L (3.5-5.1) Chloride Level 99 mmol/L (98-107) 106 mmol/L (98-107) 106 mmol/L (98-107) Carbon Dioxide Level 14 mmol/L (21-32) 18 mmol/L (21-32) 20 mmol/L (21-32) Anion Gap 19 (6-14) 12 (6-14) 12 (6-14) Blood Urea Nitrogen 55 mg/dL (7-20) 33 mg/dL (7-20) 31 mg/dL (7-20) Creatinine 3.5 mg/dL (0.6-1.0) 2.1 mg/dL (0.6-1.0) 1.9 mg/dL (0.6-1.0) Estimated GFR (Cockcroft-Gault) 12.6 22.7 25.5 BUN/Creatinine Ratio 16 (6-20) 16 (6-20) Glucose Level 81 mg/dL (70-99) 65 mg/dL (70-99) 68 mg/dL (70-99) Calcium Level 9.1 mg/dL (8.5-10.1) 8.3 mg/dL (8.5-10.1) 8.7 mg/dL (8.5-10.1) Magnesium Level 1.5 mg/dL (1.8-2.4) Total Bilirubin 0.5 mg/dL (0.2-1.0) 0.4 mg/dL (0.2-1.0) Aspartate Amino Transf (AST/SGOT) 15 U/L (15-37) 13 U/L (15-37) Alanine Aminotransferase (ALT/SGPT) 9 U/L (14-59) 6 U/L (14-59) Alkaline Phosphatase 59 U/L (46-116) 48 U/L (46-116) Troponin I Quantitative 0.039 ng/mL (0.000-0.055) Total Protein 6.6 g/dL (6.4-8.2) 6.0 g/dL (6.4-8.2) Albumin 3.2 g/dL (3.4-5.0) 2.6 g/dL (3.4-5.0) Albumin/Globulin Ratio 0.9 (1.0-1.7) 0.8 (1.0-1.7) Lipase 112 U/L (73-393) Urine Collection Type U cath Urine Color Yellow Urine Clarity Clear Urine pH 5.0 Urine Specific [place] 1.020 Urine Protein Negative mg/dL (NEG-TRACE) Urine Glucose (UA) Negative mg/dL (NEG) Urine Ketones (Stick) 15 mg/dL (NEG) Urine Blood Negative (NEG) Urine Nitrite Negative (NEG) Urine Bilirubin Moderate (NEG) Urine Urobilinogen Dipstick 0.2 mg/dL (0.2 mg/dL) Urine Leukocyte Esterase Negative (NEG) Urine RBC 0 /HPF (0-2) Urine WBC Occ /HPF (0-4) Urine Squamous Epithelial Cells Few /LPF Urine Amorphous Sediment Present /HPF Urine Bacteria Few /HPF (0-FEW) Urine Hyaline Casts Moderate /HPF Urine Mucus Mod /LPF Laboratory Tests Test 05/23/18 22:15 05/24/18 05:40 Sodium Level 136 mmol/L (136-145) 138 mmol/L (136-145) Potassium Level 4.5 mmol/L (3.5-5.1) 4.7 mmol/L (3.5-5.1) Chloride Level 106 mmol/L (98-107) 106 mmol/L (98-107) Carbon Dioxide Level 18 mmol/L (21-32) 20 mmol/L (21-32) Anion Gap 12 (6-14) 12 (6-14) Blood Urea Nitrogen 33 mg/dL (7-20) 31 mg/dL (7-20) Creatinine 2.1 mg/dL (0.6-1.0) 1.9 mg/dL (0.6-1.0) Estimated GFR (Cockcroft-Gault) 22.7 25.5 Glucose Level 65 mg/dL (70-99) 68 mg/dL (70-99) Calcium Level 8.3 mg/dL (8.5-10.1) 8.7 mg/dL (8.5-10.1) White Blood Count 3.8 x10^3/uL (4.0-11.0) Red Blood Count 4.10 x10^6/uL (3.50-5.40) Hemoglobin 12.9 g/dL (12.0-15.5) Hematocrit 38.2 % (36.0-47.0) Mean Corpuscular Volume 93 fL (79-100) Mean Corpuscular Hemoglobin 31 pg (25-35) Mean Corpuscular Hemoglobin Concent 34 g/dL (31-37) Red Cell Distribution Width 16.1 % (11.5-14.5) Platelet Count 49 x10^3/uL (140-400) Neutrophils (%) (Auto) 58 % (31-73) Lymphocytes (%) (Auto) 30 % (24-48) Monocytes (%) (Auto) 9 % (0-9) Eosinophils (%) (Auto) 3 % (0-3) Basophils (%) (Auto) 1 % (0-3) Neutrophils # (Auto) 2.2 x10^3uL (1.8-7.7) Lymphocytes # (Auto) 1.1 x10^3/uL (1.0-4.8) Monocytes # (Auto) 0.3 x10^3/uL (0.0-1.1) Eosinophils # (Auto) 0.1 x10^3/uL (0.0-0.7) Basophils # (Auto) 0.0 x10^3/uL (0.0-0.2) BUN/Creatinine Ratio 16 (6-20) Total Bilirubin 0.4 mg/dL (0.2-1.0) Aspartate Amino Transf (AST/SGOT) 13 U/L (15-37) Alanine Aminotransferase (ALT/SGPT) 6 U/L (14-59) Alkaline Phosphatase 48 U/L (46-116) Total Protein 6.0 g/dL (6.4-8.2) Albumin 2.6 g/dL (3.4-5.0) Albumin/Globulin Ratio 0.8 (1.0-1.7) Medications Current Medications Sodium Chloride 1,000 ml @ 1,000 mls/hr 1X ONCE IV Last administered on at 18:32; Start 05/22/18 at 18:30; Stop 05/22/18 at 19:29; Status DC Ondansetron HCl (Zofran) 8 mg 1X ONCE IV Last administered on 05/22/18at 18:31 ; Start 05/22/18 at 18:30; Stop 05/22/18 at 18:31; Status DC Magnesium Sulfate/ Dextrose 100 ml @ 100 mls/hr 1X ONCE IV Last administered on 05/22/18at 23:47; Start 05/22/18 at 23:30; Stop 05/23/18 at 00:29; Status DC Sodium Chloride 1,000 ml @ 75 mls/hr [id number] IV Last administered on at 05:16; Start 05/22/18 at 23:30 Amlodipine Besylate (Norvasc) 5 mg DAILY PO Last administered on 05/23/18at 08: 28; Start 05/23/18 at 09:00 Apixaban (Eliquis) 5 mg BID PO Last administered on 05/23/18at 20:25; Start 05/23/18 at 09:00 Atorvastatin Calcium (Lipitor) 40 mg QHS PO Last administered on 05/23/18at 20: 25; Start 05/23/18 at 21:00 Levetiracetam (Keppra) 500 mg BID PO Last administered on 05/23/18at 20:25; Start 05/23/18 at 09:00 Ondansetron HCl (Zofran Odt) 4 mg Q6HRS PO Last administered on 05/24/18at 05:16 ; Start 05/23/18 at 00:00 Citalopram Hydrobromide (CeleXA) 20 mg DAILY PO Last administered on 05/23/18at 08:28; Start 05/23/18 at 09:00 Pantoprazole Sodium (Protonix) 40 mg DAILYAC PO Last administered on 05/23/18at 07:48; Start 05/23/18 at 07:30 Active Scripts Active Reported Levetiracetam 500 Mg Tablet 1 Tab PO BID Eliquis (Apixaban) 5 Mg Tablet 5 Mg PO BID Lisinopril 20 Mg Tablet 1 Tab PO DAILY Escitalopram Oxalate 10 Mg Tablet 1 Tab PO DAILY Amlodipine Besylate 5 Mg Tablet 5 Mg PO DAILY Ciprofloxacin Hcl 250 Mg Tablet 1 Tab PO BID Omeprazole 40 Mg Capsule.dr 40 Mg PO DAILY Zofran Odt (Ondansetron) 4 Mg Tab.rapdis 1 Tab SL Q6HRS Vitals/I & O Vital Sign - Last 24 Hours 05/23/18 05/23/18 05/23/18 05/23/18 11:00 15:00 19:00 20:00 Temp 97.6 97.7 97.8 97.6 97.7 97.8 Pulse 65 66 69 Resp 07 06 18 B/P (MAP) 100/58 (72) 106/62 (77) 116/75 (89) Pulse Ox 95 96 95 O2 Delivery Room Air Room Air Room Air Room Air 05/23/18 05/24/18 05/24/18 23:00 03:00 07:00 Temp 97.8 98.0 97.6 97.8 98.0 97.6 Pulse 70 70 65 Resp 18 18 18 B/P (MAP) 120/70 (87) 115/71 (86) 120/73 (89) Pulse Ox 94 94 95 O2 Delivery Room Air Room Air Room Air Intake and Output 05/23/18 05/23/18 05/24/18 15:00 23:00 07:00 Intake Total 300 ml 230 ml 400 ml Output Total 120 ml 800 ml Balance 300 ml 110 ml -400 ml Nutrition Consultation Dietary Evaluation: Recommendations by RD: Increase Calorie Intake Comments: nepro q day Expected Outcomes/Goals: to meet > 75% est nutr needs Interpretation of weight loss: >20% in 1 year Malnutrition Findings: Food and Nutrition Intake (Sev: <50% est energy req 5days Weight Status: Appropriate VAUGHN MARK MD May 24, 2018 08:34
--- NOTE | 2018-05-24 09:11 | RAD ---
CT HEAD INDICATION: Altered mental status, COGNITIVE DECLINE COMPARISON: 03/05/2018 Exposure: One or more of the following individualized dose reduction techniques were utilized for this examination: 1. Automated exposure control 2. Adjustment of the mA and/or kV according to patient size 3. Use of iterative reconstruction technique TECHNIQUE: 5 mm contiguous axial images were obtained from the skull base to the vertex in both bone and soft tissue algorithm. 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 Mild bilateral pedicular white matter hypodensities likely chronic small vessel ischemic disease. No evidence of acute intracranial hemorrhage. No extra-axial fluid collections. No mass effect or midline shift. Ventricular size is appropriate. Basal cisterns are patent. No fractures identified..Globes and orbits are within normal limits. Mild mucosal thickening right maxillary sinus. IMPRESSION: 1. 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 Electronically signed by: Ulices Peña MD (05/24/2018 9:08 AM) [facility]
--- NOTE | 2018-05-24 09:47 | PDOC2 ---
CONSULT Date of Consult Date of Consult DATE: 05/24/18 TIME: 09:35 Reason for Consult Reason for Consult: Thrombocytopenia Identification/Chief Complaint Chief Complaint confusion/ftt admitted thru ER with ARF Source Source: Chart review History of Present Illness Reason for Visit: Heme consult noted from pt list Admitted 05/22 via ER. Has chronic conditions including st[place] 2017, a fib, gerd , seizure per chart although pt not a good historian She was brought to ER due to recent decline and had been concern of UTI as outpt but in ER noted to have creatinine of 3.5, well above baseline. Asked to see due to low plts. Review of computer shows plts have been low - generally in low 100's for some time. remainder of CBC fairly nl This admit were 60 to 49. No bleeding. She is on eliquis - I suspect for afib Past Medical History Cardiovascular: CAD, HTN GI: GERD Hepatobiliary: No pertinent hx Musculoskeletal: Osteoarthritis, Other Renal/: Chronic renal failure Past Surgical History Past Surgical History: Appendectomy, Cholecystectomy, Cataract Removal, C- Section, Total hip replacement, Other Family History Family History Not aware of heme issues in family Family History: Hypertension Social History Social History she indicted she does smoke cigarettes Social History: Parent No ALCOHOL: none Drugs: None Current Problem List Problem List Problems Medical Problems: (1) BRODIE (acute kidney injury) Status: Acute (2) Dehydration Status: Acute (3) Hyperkalemia Status: Acute Current Medications Current Medications Current Medications Sodium Chloride 1,000 ml @ 1,000 mls/hr 1X ONCE IV Last administered on at 18:32; Start 05/22/18 at 18:30; Stop 05/22/18 at 19:29; Status DC Ondansetron HCl (Zofran) 8 mg 1X ONCE IV Last administered on 05/22/18at 18:31 ; Start 05/22/18 at 18:30; Stop 05/22/18 at 18:31; Status DC Magnesium Sulfate/ Dextrose 100 ml @ 100 mls/hr 1X ONCE IV Last administered on 05/22/18at 23:47; Start 05/22/18 at 23:30; Stop 05/23/18 at 00:29; Status DC Sodium Chloride 1,000 ml @ 75 mls/hr [id number] IV Last administered on at 05:16; Start 05/22/18 at 23:30 Amlodipine Besylate (Norvasc) 5 mg DAILY PO Last administered on 05/23/18at 08: 28; Start 05/23/18 at 09:00 Apixaban (Eliquis) 5 mg BID PO Last administered on 05/23/18at 20:25; Start 05/23/18 at 09:00 Atorvastatin Calcium (Lipitor) 40 mg QHS PO Last administered on 05/23/18at 20: 25; Start 05/23/18 at 21:00 Levetiracetam (Keppra) 500 mg BID PO Last administered on 05/23/18 20:25; Start 05/23/18 at 09:00 Ondansetron HCl (Zofran Odt) 4 mg Q6HRS PO Last administered on 05/24/18at 05:16 ; Start 05/23/18 at 00:00 Citalopram Hydrobromide (CeleXA) 20 mg DAILY PO Last administered on 05/23/18at 08:28; Start 05/23/18 at 09:00 Pantoprazole Sodium (Protonix) 40 mg DAILYAC PO Last administered on 05/23/18at 07:48; Start 05/23/18 at 07:30 Active Scripts Active Reported Levetiracetam 500 Mg Tablet 1 Tab PO BID Eliquis (Apixaban) 5 Mg Tablet 5 Mg PO BID Lisinopril 20 Mg Tablet 1 Tab PO DAILY Escitalopram Oxalate 10 Mg Tablet 1 Tab PO DAILY Amlodipine Besylate 5 Mg Tablet 5 Mg PO DAILY Ciprofloxacin Hcl 250 Mg Tablet 1 Tab PO BID Omeprazole 40 Mg Capsule.dr 40 Mg PO DAILY Zofran Odt (Ondansetron) 4 Mg Tab.rapdis 1 Tab SL Q6HRS Allergies Allergies: Coded Allergies: pneumococcal vaccine (Verified Allergy, Unknown, Swelling, 05/22/18) family reports blackish-purple down entire arm of injection morphine (Verified Adverse Reaction, Severe, nausea/abdominal pain, 12/24/14 ) ROS Review of System telling me she wants to go home, 12 point review negative, but she did not eat well Physical Exam General: Alert, Cooperative, No acute distress HEENT: Atraumatic, Mucous membr. moist/pink Lungs: Clear to auscultation Heart: Regular rate, No murmurs Abdomen: Normal bowel sounds, Soft, No hepatosplenomegaly Extremities: No clubbing, No cyanosis, No edema Neuro: Normal speech, Cranial nerves 3-12 NL, Other (moves all ext normally. Knew she was in hospital and year, but not month) MUSCULOSKELETAL: No swelling Vitals VITALS Vital Signs Date Time Temp Pulse Resp B/P (MAP) Pulse Ox O2 Delivery O2 Flow Rate FiO2 05/24/18 07:00 97.6 65 18 120/73 (89) 95 Room Air 97.6 Labs Labs Laboratory Tests Test 05/22/18 18:02 05/22/18 20:00 05/23/18 22:15 05/24/18 05:40 White Blood Count 4.4 x10^3/uL (4.0-11.0) 3.8 x10^3/uL (4.0-11.0) Red Blood Count 4.43 x10^6/uL (3.50-5.40) 4.10 x10^6/uL (3.50-5.40) Hemoglobin 13.9 g/dL (12.0-15.5) 12.9 g/dL (12.0-15.5) Hematocrit 41.3 % (36.0-47.0) 38.2 % (36.0-47.0) Mean Corpuscular Volume 93 fL (79-100) 93 fL (79-100) Mean Corpuscular Hemoglobin 31 pg (25-35) 31 pg (25-35) Mean Corpuscular Hemoglobin Concent 34 g/dL (31-37) 34 g/dL (31-37) Red Cell Distribution Width 16.2 % (11.5-14.5) 16.1 % (11.5-14.5) Platelet Count 60 x10^3/uL (140-400) 49 x10^3/uL (140-400) Neutrophils (%) (Auto) 65 % (31-73) 58 % (31-73) Lymphocytes (%) (Auto) 23 % (24-48) 30 % (24-48) Monocytes (%) (Auto) 10 % (0-9) 9 % (0-9) Eosinophils (%) (Auto) 2 % (0-3) 3 % (0-3) Basophils (%) (Auto) 1 % (0-3) 1 % (0-3) Neutrophils # (Auto) 2.8 x10^3uL (1.8-7.7) 2.2 x10^3uL (1.8-7.7) Lymphocytes # (Auto) 1.0 x10^3/uL (1.0-4.8) 1.1 x10^3/uL (1.0-4.8) Monocytes # (Auto) 0.4 x10^3/uL (0.0-1.1) 0.3 x10^3/uL (0.0-1.1) Eosinophils # (Auto) 0.1 x10^3/uL (0.0-0.7) 0.1 x10^3/uL (0.0-0.7) Basophils # (Auto) 0.0 x10^3/uL (0.0-0.2) 0.0 x10^3/uL (0.0-0.2) Platelet Estimate Decreased (ADEQUATE) Large Platelets Occ Sodium Level 132 mmol/L (136-145) 136 mmol/L (136-145) 138 mmol/L (136-145) Potassium Level 5.2 mmol/L (3.5-5.1) 4.5 mmol/L (3.5-5.1) 4.7 mmol/L (3.5-5.1) Chloride Level 99 mmol/L (98-107) 106 mmol/L (98-107) 106 mmol/L (98-107) Carbon Dioxide Level 14 mmol/L (21-32) 18 mmol/L (21-32) 20 mmol/L (21-32) Anion Gap 19 (6-14) 12 (6-14) 12 (6-14) Blood Urea Nitrogen 55 mg/dL (7-20) 33 mg/dL (7-20) 31 mg/dL (7-20) Creatinine 3.5 mg/dL (0.6-1.0) 2.1 mg/dL (0.6-1.0) 1.9 mg/dL (0.6-1.0) Estimated GFR (Cockcroft-Gault) 12.6 22.7 25.5 BUN/Creatinine Ratio 16 (6-20) 16 (6-20) Glucose Level 81 mg/dL (70-99) 65 mg/dL (70-99) 68 mg/dL (70-99) Calcium Level 9.1 mg/dL (8.5-10.1) 8.3 mg/dL (8.5-10.1) 8.7 mg/dL (8.5-10.1) Magnesium Level 1.5 mg/dL (1.8-2.4) Total Bilirubin 0.5 mg/dL (0.2-1.0) 0.4 mg/dL (0.2-1.0) Aspartate Amino Transf (AST/SGOT) 15 U/L (15-37) 13 U/L (15-37) Alanine Aminotransferase (ALT/SGPT) 9 U/L (14-59) 6 U/L (14-59) Alkaline Phosphatase 59 U/L (46-116) 48 U/L (46-116) Troponin I Quantitative 0.039 ng/mL (0.000-0.055) Total Protein 6.6 g/dL (6.4-8.2) 6.0 g/dL (6.4-8.2) Albumin 3.2 g/dL (3.4-5.0) 2.6 g/dL (3.4-5.0) Albumin/Globulin Ratio 0.9 (1.0-1.7) 0.8 (1.0-1.7) Lipase 112 U/L (73-393) Urine Collection Type U cath Urine Color Yellow Urine Clarity Clear Urine pH 5.0 Urine Specific [place] 1.020 Urine Protein Negative mg/dL (NEG-TRACE) Urine Glucose (UA) Negative mg/dL (NEG) Urine Ketones (Stick) 15 mg/dL (NEG) Urine Blood Negative (NEG) Urine Nitrite Negative (NEG) Urine Bilirubin Moderate (NEG) Urine Urobilinogen Dipstick 0.2 mg/dL (0.2 mg/dL) Urine Leukocyte Esterase Negative (NEG) Urine RBC 0 /HPF (0-2) Urine WBC Occ /HPF (0-4) Urine Squamous Epithelial Cells Few /LPF Urine Amorphous Sediment Present /HPF Urine Bacteria Few /HPF (0-FEW) Urine Hyaline Casts Moderate /HPF Urine Mucus Mod /LPF Laboratory Tests Test 05/23/18 22:15 05/24/18 05:40 Sodium Level 136 mmol/L (136-145) 138 mmol/L (136-145) Potassium Level 4.5 mmol/L (3.5-5.1) 4.7 mmol/L (3.5-5.1) Chloride Level 106 mmol/L (98-107) 106 mmol/L (98-107) Carbon Dioxide Level 18 mmol/L (21-32) 20 mmol/L (21-32) Anion Gap 12 (6-14) 12 (6-14) Blood Urea Nitrogen 33 mg/dL (7-20) 31 mg/dL (7-20) Creatinine 2.1 mg/dL (0.6-1.0) 1.9 mg/dL (0.6-1.0) Estimated GFR (Cockcroft-Gault) 22.7 25.5 Glucose Level 65 mg/dL (70-99) 68 mg/dL (70-99) Calcium Level 8.3 mg/dL (8.5-10.1) 8.7 mg/dL (8.5-10.1) White Blood Count 3.8 x10^3/uL (4.0-11.0) Red Blood Count 4.10 x10^6/uL (3.50-5.40) Hemoglobin 12.9 g/dL (12.0-15.5) Hematocrit 38.2 % (36.0-47.0) Mean Corpuscular Volume 93 fL (79-100) Mean Corpuscular Hemoglobin 31 pg (25-35) Mean Corpuscular Hemoglobin Concent 34 g/dL (31-37) Red Cell Distribution Width 16.1 % (11.5-14.5) Platelet Count 49 x10^3/uL (140-400) Neutrophils (%) (Auto) 58 % (31-73) Lymphocytes (%) (Auto) 30 % (24-48) Monocytes (%) (Auto) 9 % (0-9) Eosinophils (%) (Auto) 3 % (0-3) Basophils (%) (Auto) 1 % (0-3) Neutrophils # (Auto) 2.2 x10^3uL (1.8-7.7) Lymphocytes # (Auto) 1.1 x10^3/uL (1.0-4.8) Monocytes # (Auto) 0.3 x10^3/uL (0.0-1.1) Eosinophils # (Auto) 0.1 x10^3/uL (0.0-0.7) Basophils # (Auto) 0.0 x10^3/uL (0.0-0.2) BUN/Creatinine Ratio 16 (6-20) Total Bilirubin 0.4 mg/dL (0.2-1.0) Aspartate Amino Transf (AST/SGOT) 13 U/L (15-37) Alanine Aminotransferase (ALT/SGPT) 6 U/L (14-59) Alkaline Phosphatase 48 U/L (46-116) Total Protein 6.0 g/dL (6.4-8.2) Albumin 2.6 g/dL (3.4-5.0) Albumin/Globulin Ratio 0.8 (1.0-1.7) Assessment/Plan Assessment/Plan Thrombocytopenia. Appears somewhat chronic with acute worsening. Unsure of etiology, broad differential, but no evidence of comsumptive coagulopathy like TTP and remainder of CBC normal. None of meds are classic, but I think rarely reproted with Keppra - unsure of how long she has been on and not sure I would make any changes. Also on chronic anticoagulation with eliquis - I believe for a fib. Chart noted heparin prophylaxis, but did not see on med list and would not be needed. Overall, I think ok to anticoagulate given plts, and her creat is improved, but she does look like a higher bleeding risk given overall frailty. More recent ARF, unsure of etiology, but does appear to be trending better. Acutely, no different recs, but will follow and ask for b12/folate and coag studies. HAROLDO SALINAS MD May 24, 2018 09:46
[2018-05-24] MEDS: APIXABAN 5 MG TABLET. PO SCH ×2 (10:10→21:02)
[2018-05-24] MEDS: PANTOPRAZOLE 40 MG TABLET.DR. PO SCH (10:10)
[2018-05-24] MEDS: CITALOPRAM 20 MG TABLET. PO SCH (10:10)
[2018-05-24] MEDS: levETIRAcetam 500 MG TABLET PO SCH ×2 (10:11→21:02)
[2018-05-24] MEDS: amLODIPine BESYLATE 5 MG TABLET PO SCH (10:12)
[2018-05-24 11:00] VITALS: BP 121/74
[2018-05-24 11:07] LABS: PROTHROMBIN TIME PATIENT 16.8 SEC (11.7-14.0)
--- NOTE | 2018-05-24 14:34 | PDOC2 ---
NEUROLOGY CONSULT Date of Admission Date of Admission DATE: 05/24/18 TIME: 14:32 Full Report Dictated Patient is a 77-year-old woman who had a stroke in 2017 in the left posteroparietal region leading to some akathisia. She's had recent deterioration possibly related to poor oral intake and prerenal failure. Neurologic exam did reveal some changes with left arm drift and left leg weakness compared to right. The CT scan of the brain did not reveal evidence for a right hemispheric stroke. I will arrange for an MRI brain to evaluate for acute stroke. If positive then we will need to arrange rather investigation as well. Current Medications Current Medications Current Medications Sodium Chloride 1,000 ml @ 1,000 mls/hr 1X ONCE IV Last administered on at 18:32; Start 05/22/18 at 18:30; Stop 05/22/18 at 19:29; Status DC Ondansetron HCl (Zofran) 8 mg 1X ONCE IV Last administered on 05/22/18at 18:31 ; Start 05/22/18 at 18:30; Stop 05/22/18 at 18:31; Status DC Magnesium Sulfate/ Dextrose 100 ml @ 100 mls/hr 1X ONCE IV Last administered on 05/22/18at 23:47; Start 05/22/18 at 23:30; Stop 05/23/18 at 00:29; Status DC Sodium Chloride 1,000 ml @ 75 mls/hr [id number] IV Last administered on at 05:16; Start 05/22/18 at 23:30 Amlodipine Besylate (Norvasc) 5 mg DAILY PO Last administered on 05/24/18at 10: 12; Start 05/23/18 at 09:00 Apixaban (Eliquis) 5 mg BID PO Last administered on 05/24/18at 10:10; Start 05/23/18 at 09:00 Atorvastatin Calcium (Lipitor) 40 mg QHS PO Last administered on 05/23/18at 20: 25; Start 05/23/18 at 21:00 Levetiracetam (Keppra) 500 mg BID PO Last administered on 05/24/18at 10:11; Start 05/23/18 at 09:00 Ondansetron HCl (Zofran Odt) 4 mg Q6HRS PO Last administered on 11/3/18at 05:16 ; Start 05/23/18 at 00:00 Citalopram Hydrobromide (CeleXA) 20 mg DAILY PO Last administered on 05/24/18at 10:10; Start 05/23/18 at 09:00 Pantoprazole Sodium (Protonix) 40 mg DAILYAC PO Last administered on 05/24/18at 10:10; Start 05/23/18 at 07:30 Active Scripts Active Reported Levetiracetam 500 Mg Tablet 1 Tab PO BID Eliquis (Apixaban) 5 Mg Tablet 5 Mg PO BID Lisinopril 20 Mg Tablet 1 Tab PO DAILY Escitalopram Oxalate 10 Mg Tablet 1 Tab PO DAILY Amlodipine Besylate 5 Mg Tablet 5 Mg PO DAILY Ciprofloxacin Hcl 250 Mg Tablet 1 Tab PO BID Omeprazole 40 Mg Capsule.dr 40 Mg PO DAILY Zofran Odt (Ondansetron) 4 Mg Tab.rapdis 1 Tab SL Q6HRS Allergies Allergies: Coded Allergies: pneumococcal vaccine (Verified Allergy, Unknown, Swelling, 05/22/18) family reports blackish-purple down entire arm of injection morphine (Verified Adverse Reaction, Severe, nausea/abdominal pain, 12/24/14 ) Vitals VITALS Vital Signs Date Time Temp Pulse Resp B/P (MAP) Pulse Ox O2 Delivery O2 Flow Rate FiO2 05/24/18 11:00 97.5 59 16 121/74 (90) 94 Room Air 97.5 Labs Labs Laboratory Tests Test 05/22/18 18:02 05/22/18 20:00 05/23/18 22:15 05/24/18 05:40 White Blood Count 4.4 x10^3/uL (4.0-11.0) 3.8 x10^3/uL (4.0-11.0) Red Blood Count 4.43 x10^6/uL (3.50-5.40) 4.10 x10^6/uL (3.50-5.40) Hemoglobin 13.9 g/dL (12.0-15.5) 12.9 g/dL (12.0-15.5) Hematocrit 41.3 % (36.0-47.0) 38.2 % (36.0-47.0) Mean Corpuscular Volume 93 fL (79-100) 93 fL (79-100) Mean Corpuscular Hemoglobin 31 pg (25-35) 31 pg (25-35) Mean Corpuscular Hemoglobin Concent 34 g/dL (31-37) 34 g/dL (31-37) Red Cell Distribution Width 16.2 % (11.5-14.5) 16.1 % (11.5-14.5) Platelet Count 60 x10^3/uL (140-400) 49 x10^3/uL (140-400) Neutrophils (%) (Auto) 65 % (31-73) 58 % (31-73) Lymphocytes (%) (Auto) 23 % (24-48) 30 % (24-48) Monocytes (%) (Auto) 10 % (0-9) 9 % (0-9) Eosinophils (%) (Auto) 2 % (0-3) 3 % (0-3) Basophils (%) (Auto) 1 % (0-3) 1 % (0-3) Neutrophils # (Auto) 2.8 x10^3uL (1.8-7.7) 2.2 x10^3uL (1.8-7.7) Lymphocytes # (Auto) 1.0 x10^3/uL (1.0-4.8) 1.1 x10^3/uL (1.0-4.8) Monocytes # (Auto) 0.4 x10^3/uL (0.0-1.1) 0.3 x10^3/uL (0.0-1.1) Eosinophils # (Auto) 0.1 x10^3/uL (0.0-0.7) 0.1 x10^3/uL (0.0-0.7) Basophils # (Auto) 0.0 x10^3/uL (0.0-0.2) 0.0 x10^3/uL (0.0-0.2) Platelet Estimate Decreased (ADEQUATE) Large Platelets Occ Sodium Level 132 mmol/L (136-145) 136 mmol/L (136-145) 138 mmol/L (136-145) Potassium Level 5.2 mmol/L (3.5-5.1) 4.5 mmol/L (3.5-5.1) 4.7 mmol/L (3.5-5.1) Chloride Level 99 mmol/L (98-107) 106 mmol/L (98-107) 106 mmol/L (98-107) Carbon Dioxide Level 14 mmol/L (21-32) 18 mmol/L (21-32) 20 mmol/L (21-32) Anion Gap 19 (6-14) 12 (6-14) 12 (6-14) Blood Urea Nitrogen 55 mg/dL (7-20) 33 mg/dL (7-20) 31 mg/dL (7-20) Creatinine 3.5 mg/dL (0.6-1.0) 2.1 mg/dL (0.6-1.0) 1.9 mg/dL (0.6-1.0) Estimated GFR (Cockcroft-Gault) 12.6 22.7 25.5 BUN/Creatinine Ratio 16 (6-20) 16 (6-20) Glucose Level 81 mg/dL (70-99) 65 mg/dL (70-99) 68 mg/dL (70-99) Calcium Level 9.1 mg/dL (8.5-10.1) 8.3 mg/dL (8.5-10.1) 8.7 mg/dL (8.5-10.1) Magnesium Level 1.5 mg/dL (1.8-2.4) Total Bilirubin 0.5 mg/dL (0.2-1.0) 0.4 mg/dL (0.2-1.0) Aspartate Amino Transf (AST/SGOT) 15 U/L (15-37) 13 U/L (15-37) Alanine Aminotransferase (ALT/SGPT) 9 U/L (14-59) 6 U/L (14-59) Alkaline Phosphatase 59 U/L (46-116) 48 U/L (46-116) Troponin I Quantitative 0.039 ng/mL (0.000-0.055) Total Protein 6.6 g/dL (6.4-8.2) 6.0 g/dL (6.4-8.2) Albumin 3.2 g/dL (3.4-5.0) 2.6 g/dL (3.4-5.0) Albumin/Globulin Ratio 0.9 (1.0-1.7) 0.8 (1.0-1.7) Lipase 112 U/L (73-393) Urine Collection Type U cath Urine Color Yellow Urine Clarity Clear Urine pH 5.0 Urine Specific [place] 1.020 Urine Protein Negative mg/dL (NEG-TRACE) Urine Glucose (UA) Negative mg/dL (NEG) Urine Ketones (Stick) 15 mg/dL (NEG) Urine Blood Negative (NEG) Urine Nitrite Negative (NEG) Urine Bilirubin Moderate (NEG) Urine Urobilinogen Dipstick 0.2 mg/dL (0.2 mg/dL) Urine Leukocyte Esterase Negative (NEG) Urine RBC 0 /HPF (0-2) Urine WBC Occ /HPF (0-4) Urine Squamous Epithelial Cells Few /LPF Urine Amorphous Sediment Present /HPF Urine Bacteria Few /HPF (0-FEW) Urine Hyaline Casts Moderate /HPF Urine Mucus Mod /LPF Test 05/24/18 10:35 Prothrombin Time 16.8 SEC (11.7-14.0) Prothromb Time International Ratio 1.4 (0.8-1.1) Activated Partial Thromboplast Time 44 SEC (24-38) Laboratory Tests Test 05/23/18 22:15 05/24/18 05:40 05/24/18 10:35 Sodium Level 136 mmol/L (136-145) 138 mmol/L (136-145) Potassium Level 4.5 mmol/L (3.5-5.1) 4.7 mmol/L (3.5-5.1) Chloride Level 106 mmol/L (98-107) 106 mmol/L (98-107) Carbon Dioxide Level 18 mmol/L (21-32) 20 mmol/L (21-32) Anion Gap 12 (6-14) 12 (6-14) Blood Urea Nitrogen 33 mg/dL (7-20) 31 mg/dL (7-20) Creatinine 2.1 mg/dL (0.6-1.0) 1.9 mg/dL (0.6-1.0) Estimated GFR (Cockcroft-Gault) 22.7 25.5 Glucose Level 65 mg/dL (70-99) 68 mg/dL (70-99) Calcium Level 8.3 mg/dL (8.5-10.1) 8.7 mg/dL (8.5-10.1) White Blood Count 3.8 x10^3/uL (4.0-11.0) Red Blood Count 4.10 x10^6/uL (3.50-5.40) Hemoglobin 12.9 g/dL (12.0-15.5) Hematocrit 38.2 % (36.0-47.0) Mean Corpuscular Volume 93 fL (79-100) Mean Corpuscular Hemoglobin 31 pg (25-35) Mean Corpuscular Hemoglobin Concent 34 g/dL (31-37) Red Cell Distribution Width 16.1 % (11.5-14.5) Platelet Count 49 x10^3/uL (140-400) Neutrophils (%) (Auto) 58 % (31-73) Lymphocytes (%) (Auto) 30 % (24-48) Monocytes (%) (Auto) 9 % (0-9) Eosinophils (%) (Auto) 3 % (0-3) Basophils (%) (Auto) 1 % (0-3) Neutrophils # (Auto) 2.2 x10^3uL (1.8-7.7) Lymphocytes # (Auto) 1.1 x10^3/uL (1.0-4.8) Monocytes # (Auto) 0.3 x10^3/uL (0.0-1.1) Eosinophils # (Auto) 0.1 x10^3/uL (0.0-0.7) Basophils # (Auto) 0.0 x10^3/uL (0.0-0.2) BUN/Creatinine Ratio 16 (6-20) Total Bilirubin 0.4 mg/dL (0.2-1.0) Aspartate Amino Transf (AST/SGOT) 13 U/L (15-37) Alanine Aminotransferase (ALT/SGPT) 6 U/L (14-59) Alkaline Phosphatase 48 U/L (46-116) Total Protein 6.0 g/dL (6.4-8.2) Albumin 2.6 g/dL (3.4-5.0) Albumin/Globulin Ratio 0.8 (1.0-1.7) Prothrombin Time 16.8 SEC (11.7-14.0) Prothromb Time International Ratio 1.4 (0.8-1.1) Activated Partial Thromboplast Time 44 SEC (24-38) ROXIE HERRERA MD May 24, 2018 14:34
[2018-05-24 15:00] VITALS: BP 128/73
--- NOTE | 2018-05-24 18:20 | RAD ---
MRI study of the brain without contrast Clinical indications: Weakness and confusion. History of CVA. COMPARISON: Noncontrast head CT date dated May 24, [address] dated March 05, 2018. An MRI study of the brain dated May 25, 2017. TECHNIQUE: Noncontrast MRI sequences of the brain were performed. FINDINGS: There is a tiny focus of restricted diffusion within the posterior aspect of the left parietal lobe consistent with small acute infarct. No acute intracranial hemorrhage is evident. A large old cortical infarct of the posterior left temporal lobe and the posterior left parietal lobe is again evident. There is mild bilateral periventricular white matter hyperintensities consistent with chronic small vessel ischemic disease in this age group. This has not progressed significantly from the prior study. Left lateral ventricle is slightly larger in size in comparison to the previous study due to the old cortical infarct. Otherwise no hydrocephalus is seen. There is loss of the normal signal void within the left vertebral artery. This is a new finding. No intracranial midline shift or mass effect is evident. There is opacification of the right mastoid sinus which is a new finding. There is chronic mucosal thickening of the contrast within the right maxillary sinus.No cerebellar tonsillar ectopia is evident. No pituitary mass is evident. IMPRESSION: Acute punctate infarct of the posterior left parietal lobe. There is a new finding of loss of the normal signal void within the left vertebral artery. This could be due to occlusion. Note-this critical result was called to the patient's floor nurse at 6:13 PM on May 24, 2018. Large old cortical infarct of the left posterior parietal lobe and posterior left temporal lobe. Mild chronic small vessel ischemic disease of the periventricular white matter. Progressive opacification of the right mastoid sinus. Electronically signed by: Poncho Sinha MD (05/24/2018 6:17 PM) [id number]
[2018-05-24 19:00] VITALS: BP 120/73
--- NOTE | 2018-05-24 19:12 | CONS ---
DATE OF CONSULTATION: REFERRING PHYSICIAN: Ulices Peña MD REASON FOR CONSULTATION: Altered mental status. HISTORY OF PRESENT ILLNESS: The patient is a 77-year-old woman admitted to [facility] on 05/23/2018. She had presented to the Emergency Room with her granddaughter who is her primary care provider. Granddaughter had noticed significant memory and functional decline over the last 3-4 months. Of note is that she had a stroke last year in the left parietal lobe causing expressive aphasia. The granddaughter notes that the patient has had poor intake over the last 1-2 weeks. She had a gagging sensation with eating and has had nausea. She had been seen by her primary care physician and given Zofran as well as Cipro for a possible urinary tract infection, but this did not improve her symptoms. She has had increasing generalized weakness. I am asked to evaluate her neurologic status. PAST MEDICAL HISTORY: 1. Atrial fibrillation. 2. Stroke in 2017, left parietal lobe. 3. Depression. 4. Gastroesophageal reflux disease. 5. Hyperlipidemia. 6. Hypertension. 7. History of seizure. 8. Thrombocytopenia. 9. Appendectomy. 10. Cholecystectomy. ALLERGIES: MORPHINE AND PNEUMOCOCCAL VACCINE. MEDICATIONS PRIOR TO ADMISSION: Amlodipine 5 mg, apixaban 5 mg twice per day, ciprofloxacin 250 mg twice per day, escitalopram 10 mg, levetiracetam 500 mg twice per day, lisinopril 20 mg, omeprazole 40 mg and Zofran 4 mg every 6 hours as needed. FAMILY HISTORY: Hypertension runs in the family. SOCIAL HISTORY: She does not smoke tobacco, drink alcohol or use recreational drugs. Care is provided by family. REVIEW OF SYSTEMS: She is an extremely poor historian. She does not complain of difficulty with headache. She is not aware of any change of vision or hearing. She has difficulty getting her words out. She has had trouble swallowing. She does complain of shortness of breath at times. She does not complain of chest or abdominal pain at the moment. Does not complain of bone or joint pain. She has not had recent fever or rash. Does not aware of any gastrointestinal or genitourinary complaint. She does not complain of swelling. She is not the best historian. PHYSICAL EXAMINATION: VITAL SIGNS: The blood pressure was 121/74, pulse 59, respirations 16, temperature 97.5 degrees Fahrenheit. Oximetry was 94% on room air. Her weight was 103 pounds, height 61 inches with a calculated body mass index of 19.5. NEUROLOGIC: She was alert, awake and cooperative. She had expressive aphasia and had difficulty getting out her words and thoughts. She was not oriented in the slightest. She could not grasp the concept of [facility]. She could repeat the words when given to her singly but when asked where she was, she could not come up with [facility]. She could not spell the word world. She could follow commands. She appeared well groomed and well nourished. Examination of the cranial nerves revealed visual h[place]go appeared intact to confrontation. Extraocular movements were intact. The eyes were conjugate. Pursuit movements were smooth and saccadic eye movements were without dysmetria. Pupils were 3 mm and reacted directly and consensually. She did not have any afferent pupillary defect. Funduscopic exam did not reveal papilledema. Facial sensation was intact. The muscles of mastication and facial expression were powerful symmetrically. Hearing was intact to finger rub. The palate arched symmetrically and the tongue was midline with full motion. Sternocleidomastoid and trapezius were powerful. Muscle bulk and tone was normal. There was some left arm drift. There was some left leg drift. Power was fairly full and symmetric in the upper extremities. In the lower extremities, the left leg was weaker than the right, although both were generally weak. Reflexes 2/4 and symmetric in the upper and lower extremities. Toes were not upgoing. Coordination testing with [id number], [id number], fine motor and rapid movements were fair. She had difficulty grasping concepts. Sensory exam was intact to pain, light touch, proprioception in the upper extremities, graphesthesia to the #1, cold thermal and vibration. She did not have a very good grasp of proprioception in her feet. Gait was not testable. CARDIOVASCULAR: Auscultation of the carotid arteries did not reveal a bruit. Heart rhythm appeared regular to auscultation and feeling her pulse. There was no edema or cyanosis. REVIEW OF LABORATORY DATA: CBC revealed a diminished white blood cell count at 3.8 with normal hemoglobin, hematocrit, but low platelet count at 49. She had occasional large platelets. Chemistry revealed normal sodium, potassium and chloride, but CO2 was low at 20. Creatinine is 1.9, was elevated at 3.5 on admission and BUN has come down to 31 which was 55 on admission. GFR calculated at 25.5. The glucose was low at 68. Calcium was normal. Liver enzymes were not elevated. Total protein was low at 8 and albumin at 2.6. Lipase was not elevated. PT/INR was 1.4 and PTT was 44. Urinalysis revealed 15 ketones, moderate urine bilirubin, urobilinogen was 0.2, occasional white blood cells, a few squamous epithelial cells and a few bacteria with moderate hyaline casts. IMAGING: Head CT scan was performed, 05/24/2018, and revealed a moderate-sized hypodensity in the left posterior parietal lobe similar to the prior exam, but no other acute process. IMPRESSION: The patient is a 77-year-old woman who had a stroke in 2017 leading to expressive aphasia. At first, she seemed to have some sensory findings in the right arm but on recheck, she did. She was not an entirely reliable sensory witness or historian. It is impossible to know if she is having a dementia in light of her expressive aphasia. She clearly became encephalopathic, but it seems this is heading in the right direction. Encephalopathy may have been related to poor oral intake, dehydration and prerenal failure. She has a history of atrial fibrillation and is on apixaban to prevent stroke. I am relieved that there was no evidence of intracranial hemorrhage. The neurologic exam did reveal some evidence of some left-sided findings with left arm drift and weakness in the left leg compared to the right. I am concerned there may have been a right hemispheric stroke contributing to her symptoms, which was not seen on the CAT scan. RECOMMENDATIONS: I would proceed with an MRI of the head without contrast to better evaluate for any evidence of acute stroke. She will need to work with speech, occupational and physical therapies. She may need a video swallow to further assess her complaints of gagging when she tried to swallow. I appreciate being involved in her care. ROXIE HERRERA MD DR: ONI/juventino JOB#: [id number] / [id number] CHRISTOPHER Sosa MD, FERILYN MD
[2018-05-24] MEDS: ATORVASTATIN CALCIUM 40 MG TABLET. PO SCH (21:02)
[2018-05-24 23:00] VITALS: BP 106/71
[2018-05-25 03:00] VITALS: BP 125/69
[2018-05-25] MEDS: IV NORMAL SALINE 1000ML BAG 1,000 ML IV SCH ×2 (04:50→20:24)
[2018-05-25] MEDS: ONDANSETRON ODT 4 MG TAB.RAPDIS. PO SCH ×4 (06:26→17:20)
[2018-05-25 07:00] VITALS: BP 131/74
[2018-05-25 07:43] LABS: BASO % 1 % (0-3); EOS # 0.1 x10^3/uL (0.0-0.7); EOS % 2 % (0-3); HEMATOCRIT 33.7 % (36.0-47.0); HEMOGLOBIN 11.6 g/dL (12.0-15.5); LYMPH # 0.7 x10^3/uL (1.0-4.8); LYMPH % 19 % (24-48); MEAN CORPUSCULAR HEMOGLOBIN 32 pg (25-35); MEAN CORPUSCULAR HGB CONC 34 g/dL (31-37); MEAN CORPUSCULAR VOLUME 93 fL (79-100); MONO # 0.3 x10^3/uL (0.0-1.1); MONO % 8 % (0-9); NEUT # 2.7 x10^3uL (1.8-7.7); NEUT % 70 % (31-73); PLATELET COUNT 43 x10^3/uL (140-400); RED BLOOD COUNT 3.64 x10^6/uL (3.50-5.40); RED CELL DISTRIBUTION WIDTH 16.4 % (11.5-14.5); WHITE BLOOD COUNT 3.8 x10^3/uL (4.0-11.0)
[2018-05-25 08:09] LABS: ALBUMIN 2.2 g/dL (3.4-5.0); ALBUMIN/GLOBULIN RATIO 0.7 (1.0-1.7); CALCIUM 8.2 mg/dL (8.5-10.1); CREATININE 1.5 mg/dL (0.6-1.0); GFR 33.5; TOTAL BILIRUBIN 0.5 mg/dL (0.2-1.0); TOTAL PROTEIN 5.2 g/dL (6.4-8.2)
--- NOTE | 2018-05-25 08:11 | PDOC ---
PROGRESS NOTES Subjective Subjective Heme f/u Consult 05/24 for thrombocytopenia which appeared to be more of an acute on chronic situation Also with recent ARF which seemed to be improving and also concern about cognition and being evaluated by neurology Objective Objective Vital Signs Date Time Temp Pulse Resp B/P (MAP) Pulse Ox O2 Delivery O2 Flow Rate FiO2 05/25/18 03:00 97.5 63 19 125/69 (87) 95 Room Air 97.5 Intake and Output 05/25/18 07:00 Intake Total 400 ml Output Total 950 ml Balance -550 ml Intake Oral 400 ml Output Urine Total 950 ml # Voids 3 # Bowel Movements 1 Physical Exam Abdomen: Normal bowel sounds, Soft Heart: Regular rate, No murmurs Extremities: No edema General: Alert, Cooperative MUSCULOSKELETAL: No swelling Assessment Assessment IProblems Medical Problems: (1) BRODIE (acute kidney injury) Status: Acute (2) Dehydration Status: Acute (3) Hyperkalemia Status: Acute In regard to thrombocytopenia, no new counts, but otherwise stable. Broad differential, but given otherwise normal counts and the chronicity of the chronically low plts, I doubt it is a serious heme or marrow based d/o. Could be immune mediated or ? med - I think keppra has been rarely reported, but not sure it warrants a med change at this time. Also checked coags which are mildly increased and could be due to eliquis - given her recent renal issue, may be appropriate to consider lower dose, but will defer to primary. There is B12 pending - could not order folate - but otherwise no different recs from heme standpoint. Comment Review of Relevant I have reviewed the following items josee (where applicable) has been applied. Labs Laboratory Tests Test 05/23/18 22:15 05/24/18 05:40 05/24/18 10:35 05/25/18 07:05 Sodium Level 136 mmol/L (136-145) 138 mmol/L (136-145) Potassium Level 4.5 mmol/L (3.5-5.1) 4.7 mmol/L (3.5-5.1) Chloride Level 106 mmol/L (98-107) 106 mmol/L (98-107) Carbon Dioxide Level 18 mmol/L (21-32) 20 mmol/L (21-32) Anion Gap 12 (6-14) 12 (6-14) Blood Urea Nitrogen 33 mg/dL (7-20) 31 mg/dL (7-20) Creatinine 2.1 mg/dL (0.6-1.0) 1.9 mg/dL (0.6-1.0) Estimated GFR (Cockcroft-Gault) 22.7 25.5 Glucose Level 65 mg/dL (70-99) 68 mg/dL (70-99) Calcium Level 8.3 mg/dL (8.5-10.1) 8.7 mg/dL (8.5-10.1) White Blood Count 3.8 x10^3/uL (4.0-11.0) 3.8 x10^3/uL (4.0-11.0) Red Blood Count 4.10 x10^6/uL (3.50-5.40) 3.64 x10^6/uL (3.50-5.40) Hemoglobin 12.9 g/dL (12.0-15.5) 11.6 g/dL (12.0-15.5) Hematocrit 38.2 % (36.0-47.0) 33.7 % (36.0-47.0) Mean Corpuscular Volume 93 fL (79-100) 93 fL (79-100) Mean Corpuscular Hemoglobin 31 pg (25-35) 32 pg (25-35) Mean Corpuscular Hemoglobin Concent 34 g/dL (31-37) 34 g/dL (31-37) Red Cell Distribution Width 16.1 % (11.5-14.5) 16.4 % (11.5-14.5) Platelet Count 49 x10^3/uL (140-400) 43 x10^3/uL (140-400) Neutrophils (%) (Auto) 58 % (31-73) 70 % (31-73) Lymphocytes (%) (Auto) 30 % (24-48) 19 % (24-48) Monocytes (%) (Auto) 9 % (0-9) 8 % (0-9) Eosinophils (%) (Auto) 3 % (0-3) 2 % (0-3) Basophils (%) (Auto) 1 % (0-3) 1 % (0-3) Neutrophils # (Auto) 2.2 x10^3uL (1.8-7.7) 2.7 x10^3uL (1.8-7.7) Lymphocytes # (Auto) 1.1 x10^3/uL (1.0-4.8) 0.7 x10^3/uL (1.0-4.8) Monocytes # (Auto) 0.3 x10^3/uL (0.0-1.1) 0.3 x10^3/uL (0.0-1.1) Eosinophils # (Auto) 0.1 x10^3/uL (0.0-0.7) 0.1 x10^3/uL (0.0-0.7) Basophils # (Auto) 0.0 x10^3/uL (0.0-0.2) 0.0 x10^3/uL (0.0-0.2) BUN/Creatinine Ratio 16 (6-20) Total Bilirubin 0.4 mg/dL (0.2-1.0) Aspartate Amino Transf (AST/SGOT) 13 U/L (15-37) Alanine Aminotransferase (ALT/SGPT) 6 U/L (14-59) Alkaline Phosphatase 48 U/L (46-116) Total Protein 6.0 g/dL (6.4-8.2) Albumin 2.6 g/dL (3.4-5.0) Albumin/Globulin Ratio 0.8 (1.0-1.7) Prothrombin Time 16.8 SEC (11.7-14.0) Prothromb Time International Ratio 1.4 (0.8-1.1) Activated Partial Thromboplast Time 44 SEC (24-38) Laboratory Tests Test 05/24/18 10:35 05/25/18 07:05 Prothrombin Time 16.8 SEC (11.7-14.0) Prothromb Time International Ratio 1.4 (0.8-1.1) Activated Partial Thromboplast Time 44 SEC (24-38) White Blood Count 3.8 x10^3/uL (4.0-11.0) Red Blood Count 3.64 x10^6/uL (3.50-5.40) Hemoglobin 11.6 g/dL (12.0-15.5) Hematocrit 33.7 % (36.0-47.0) Mean Corpuscular Volume 93 fL (79-100) Mean Corpuscular Hemoglobin 32 pg (25-35) Mean Corpuscular Hemoglobin Concent 34 g/dL (31-37) Red Cell Distribution Width 16.4 % (11.5-14.5) Platelet Count 43 x10^3/uL (140-400) Neutrophils (%) (Auto) 70 % (31-73) Lymphocytes (%) (Auto) 19 % (24-48) Monocytes (%) (Auto) 8 % (0-9) Eosinophils (%) (Auto) 2 % (0-3) Basophils (%) (Auto) 1 % (0-3) Neutrophils # (Auto) 2.7 x10^3uL (1.8-7.7) Lymphocytes # (Auto) 0.7 x10^3/uL (1.0-4.8) Monocytes # (Auto) 0.3 x10^3/uL (0.0-1.1) Eosinophils # (Auto) 0.1 x10^3/uL (0.0-0.7) Basophils # (Auto) 0.0 x10^3/uL (0.0-0.2) Medications Current Medications Sodium Chloride 1,000 ml @ 1,000 mls/hr 1X ONCE IV Last administered on at 18:32; Start 05/22/18 at 18:30; Stop 05/22/18 at 19:29; Status DC Ondansetron HCl (Zofran) 8 mg 1X ONCE IV Last administered on 05/22/18at 18:31 ; Start 05/22/18 at 18:30; Stop 05/22/18 at 18:31; Status DC Magnesium Sulfate/ Dextrose 100 ml @ 100 mls/hr 1X ONCE IV Last administered on 05/22/18at 23:47; Start 05/22/18 at 23:30; Stop 05/23/18 at 00:29; Status DC Sodium Chloride 1,000 ml @ 75 mls/hr [id number] IV Last administered on at 04:50; Start 05/22/18 at 23:30 Amlodipine Besylate (Norvasc) 5 mg DAILY PO Last administered on 05/24/18at 10: 12; Start 05/23/18 at 09:00 Apixaban (Eliquis) 5 mg BID PO Last administered on 05/24/18 21:02; Start 05/23/18 at 09:00 Atorvastatin Calcium (Lipitor) 40 mg QHS PO Last administered on 05/24/18 21: 02; Start 05/23/18 at 21:00 Levetiracetam (Keppra) 500 mg BID PO Last administered on 05/24/18 21:02; Start 05/23/18 at 09:00 Ondansetron HCl (Zofran Odt) 4 mg Q6HRS PO Last administered on 05/25/18 06:26 ; Start 05/23/18 at 00:00 Citalopram Hydrobromide (CeleXA) 20 mg DAILY PO Last administered on 05/24/18 10:10; Start 05/23/18 at 09:00 Pantoprazole Sodium (Protonix) 40 mg DAILYAC PO Last administered on 05/24/18 10:10; Start 05/23/18 at 07:30 Active Scripts Active Reported Levetiracetam 500 Mg Tablet 1 Tab PO BID Eliquis (Apixaban) 5 Mg Tablet 5 Mg PO BID Lisinopril 20 Mg Tablet 1 Tab PO DAILY Escitalopram Oxalate 10 Mg Tablet 1 Tab PO DAILY Amlodipine Besylate 5 Mg Tablet 5 Mg PO DAILY Ciprofloxacin Hcl 250 Mg Tablet 1 Tab PO BID Omeprazole 40 Mg Capsule.dr 40 Mg PO DAILY Zofran Odt (Ondansetron) 4 Mg Tab.rapdis 1 Tab SL Q6HRS Vitals/I & O Vital Sign - Last 24 Hours 05/24/18 05/24/18 05/24/18 05/24/18 10:12 11:00 15:00 19:00 Temp 97.5 97.4 97.8 97.5 97.4 97.8 Pulse 65 59 105 62 Resp 16 16 17 B/P (MAP) 120/73 121/74 (90) 128/73 (91) 120/73 (89) Pulse Ox 94 96 97 O2 Delivery Room Air Room Air Room Air 05/24/18 05/24/18 05/25/18 20:00 23:00 03:00 Temp 97.9 97.5 97.9 97.5 Pulse 61 63 Resp 18 19 B/P (MAP) 106/71 (83) 125/69 (87) Pulse Ox 96 95 O2 Delivery Room Air Room Air Room Air Intake and Output 05/24/18 05/24/18 05/25/18 15:00 23:00 07:00 Intake Total 300 ml 100 ml Output Total 350 ml 600 ml Balance 300 ml -250 ml -600 ml Nutrition Consultation Dietary Evaluation: Recommendations by RD: Increase Calorie Intake Comments: nepro q day Expected Outcomes/Goals: to meet > 75% est nutr needs Interpretation of weight loss: >20% in 1 year Malnutrition Findings: Food and Nutrition Intake (Sev: <50% est energy req 5days Weight Status: Appropriate HAROLDO SALINAS MD May 25, 2018 08:11
[2018-05-25] MEDS: APIXABAN 5 MG TABLET. PO SCH ×2 (09:07→20:23)
[2018-05-25] MEDS: amLODIPine BESYLATE 5 MG TABLET PO SCH (09:07)
[2018-05-25] MEDS: levETIRAcetam 500 MG TABLET PO SCH ×2 (09:07→20:23)
[2018-05-25] MEDS: PANTOPRAZOLE 40 MG TABLET.DR. PO SCH (09:07)
[2018-05-25] MEDS: CITALOPRAM 20 MG TABLET. PO SCH (09:07)
--- NOTE | 2018-05-25 09:16 | PDOC ---
PROGRESS NOTES History of Present Illness History of Present Illness Assessment/Plan Assessment/Plan IMPRESSION Acute punctate infarct of the posterior left parietal lobe. loss of the normal signal void within the left vertebral artery. This could be due to occlusion. Acute renal failure, improving, hypovolemic/ vasomotor dementia Atrophic right kidney with multiple low attenuating lesions most likely simple cysts. Echogenic appearing bilateral kidneys likely due to medical renal disease. Mildly atrophic appearing right kidney. hyperlipidemia hypertension thrombocytopenia, follow, consult heme plan iv fluid support nephrology consult hold nephrotoxic drugs daily labs renal us sq heparin dvt prophylaxis hold [place] mri head reviewed Vitals Vitals Vital Signs Date Time Temp Pulse Resp B/P (MAP) Pulse Ox O2 Delivery O2 Flow Rate FiO2 05/25/18 09:07 58 131/74 05/25/18 07:00 97.9 18 99 Room Air 97.9 Physical Exam Physical Exam Eyes: PERRLA, EOMI, Neck: Normal range of motion, no tenderness, supple, no stridor. [] Cardiovascular:Heart rate regular rhythm, no murmur [] Lungs & Thorax: Bilateral breath sounds clear to auscultation [] Abdomen: Bowel sounds normal, soft, no tenderness, no masses, no pulsatile masses. [] Skin: Warm, dry, no erythema, no rash. [] Back: No tenderness, no CVA tenderness. [] Extremities: No tenderness, no edema. [] Neurologic: no focal deficits noted. [] Psychologic: Affect normal, , mood normal. [] General: Cooperative HEENT: Atraumatic, PERRLA Abdomen: Normal bowel sounds, Soft General: Alert, Cooperative, No acute distress, Other (confused to details) Heart: Regular rate, No murmurs Lungs: Clear Abdomen: Normal bowel sounds, Soft Extremities: No clubbing, No cyanosis, No edema Skin: No breakdown, No significant lesion, Other (dry skin both ankles) Labs LABS PROCEDURE: BRAIN W/O CONTRAST MRI study of the brain without contrast Clinical indications: Weakness and confusion. History of CVA. COMPARISON: Noncontrast head CT date dated May 24, [address] dated March 05, 2018. An MRI study of the brain dated May 25, 2017. TECHNIQUE: Noncontrast MRI sequences of the brain were performed. FINDINGS: There is a tiny focus of restricted diffusion within the posterior aspect of the left parietal lobe consistent with small acute infarct. No acute intracranial hemorrhage is evident. A large old cortical infarct of the posterior left temporal lobe and the posterior left parietal lobe is again evident. There is mild bilateral periventricular white matter hyperintensities consistent with chronic small vessel ischemic disease in this age group. This has not progressed significantly from the prior study. Left lateral ventricle is slightly larger in size in comparison to the previous study due to the old cortical infarct. Otherwise no hydrocephalus is seen. There is loss of the normal signal void within the left vertebral artery. This is a new finding. No intracranial midline shift or mass effect is evident. There is opacification of the right mastoid sinus which is a new finding. There is chronic mucosal thickening of the contrast within the right maxillary sinus.No cerebellar tonsillar ectopia is evident. No pituitary mass is evident. IMPRESSION: Acute punctate infarct of the posterior left parietal lobe. There is a new finding of loss of the normal signal void within the left vertebral artery. This could be due to occlusion. Note-this critical result was called to the patient's floor nurse at 6:13 PM on May 24, 2018. Large old cortical infarct of the left posterior parietal lobe and posterior left temporal lobe. Mild chronic small vessel ischemic disease of the periventricular white matter. Progressive opacification of the right mastoid sinus. Electronically signed by: Poncho Sinha MD (05/24/2018 6:17 PM) [facility] DICTATED and SIGNED BY: PONCHO SINHA MD DATE: 05/24/18 180 Laboratory Tests Test 05/24/18 10:35 05/25/18 07:05 Prothrombin Time 16.8 SEC (11.7-14.0) Prothromb Time International Ratio 1.4 (0.8-1.1) Activated Partial Thromboplast Time 44 SEC (24-38) White Blood Count 3.8 x10^3/uL (4.0-11.0) Red Blood Count 3.64 x10^6/uL (3.50-5.40) Hemoglobin 11.6 g/dL (12.0-15.5) Hematocrit 33.7 % (36.0-47.0) Mean Corpuscular Volume 93 fL (79-100) Mean Corpuscular Hemoglobin 32 pg (25-35) Mean Corpuscular Hemoglobin Concent 34 g/dL (31-37) Red Cell Distribution Width 16.4 % (11.5-14.5) Platelet Count 43 x10^3/uL (140-400) Neutrophils (%) (Auto) 70 % (31-73) Lymphocytes (%) (Auto) 19 % (24-48) Monocytes (%) (Auto) 8 % (0-9) Eosinophils (%) (Auto) 2 % (0-3) Basophils (%) (Auto) 1 % (0-3) Neutrophils # (Auto) 2.7 x10^3uL (1.8-7.7) Lymphocytes # (Auto) 0.7 x10^3/uL (1.0-4.8) Monocytes # (Auto) 0.3 x10^3/uL (0.0-1.1) Eosinophils # (Auto) 0.1 x10^3/uL (0.0-0.7) Basophils # (Auto) 0.0 x10^3/uL (0.0-0.2) Sodium Level 137 mmol/L (136-145) Potassium Level 4.0 mmol/L (3.5-5.1) Chloride Level 106 mmol/L (98-107) Carbon Dioxide Level 18 mmol/L (21-32) Anion Gap 13 (6-14) Blood Urea Nitrogen 20 mg/dL (7-20) Creatinine 1.5 mg/dL (0.6-1.0) Estimated GFR (Cockcroft-Gault) 33.5 BUN/Creatinine Ratio 13 (6-20) Glucose Level 66 mg/dL (70-99) Calcium Level 8.2 mg/dL (8.5-10.1) Total Bilirubin 0.5 mg/dL (0.2-1.0) Aspartate Amino Transf (AST/SGOT) 12 U/L (15-37) Alanine Aminotransferase (ALT/SGPT) 9 U/L (14-59) Alkaline Phosphatase 48 U/L (46-116) Total Protein 5.2 g/dL (6.4-8.2) Albumin 2.2 g/dL (3.4-5.0) Albumin/Globulin Ratio 0.7 (1.0-1.7) Assessment and Plan Assessmemt and Plan Problems Medical Problems: (1) BRODIE (acute kidney injury) Status: Acute (2) Dehydration Status: Acute (3) Hyperkalemia Status: Acute Comment Review of Relevant I have reviewed the following items josee (where applicable) has been applied. Labs Laboratory Tests Test 05/23/18 22:15 05/24/18 05:40 05/24/18 10:35 05/25/18 07:05 Sodium Level 136 mmol/L (136-145) 138 mmol/L (136-145) 137 mmol/L (136-145) Potassium Level 4.5 mmol/L (3.5-5.1) 4.7 mmol/L (3.5-5.1) 4.0 mmol/L (3.5-5.1) Chloride Level 106 mmol/L (98-107) 106 mmol/L (98-107) 106 mmol/L (98-107) Carbon Dioxide Level 18 mmol/L (21-32) 20 mmol/L (21-32) 18 mmol/L (21-32) Anion Gap 12 (6-14) 12 (6-14) 13 (6-14) Blood Urea Nitrogen 33 mg/dL (7-20) 31 mg/dL (7-20) 20 mg/dL (7-20) Creatinine 2.1 mg/dL (0.6-1.0) 1.9 mg/dL (0.6-1.0) 1.5 mg/dL (0.6-1.0) Estimated GFR (Cockcroft-Gault) 22.7 25.5 33.5 Glucose Level 65 mg/dL (70-99) 68 mg/dL (70-99) 66 mg/dL (70-99) Calcium Level 8.3 mg/dL (8.5-10.1) 8.7 mg/dL (8.5-10.1) 8.2 mg/dL (8.5-10.1) White Blood Count 3.8 x10^3/uL (4.0-11.0) 3.8 x10^3/uL (4.0-11.0) Red Blood Count 4.10 x10^6/uL (3.50-5.40) 3.64 x10^6/uL (3.50-5.40) Hemoglobin 12.9 g/dL (12.0-15.5) 11.6 g/dL (12.0-15.5) Hematocrit 38.2 % (36.0-47.0) 33.7 % (36.0-47.0) Mean Corpuscular Volume 93 fL (79-100) 93 fL (79-100) Mean Corpuscular Hemoglobin 31 pg (25-35) 32 pg (25-35) Mean Corpuscular Hemoglobin Concent 34 g/dL (31-37) 34 g/dL (31-37) Red Cell Distribution Width 16.1 % (11.5-14.5) 16.4 % (11.5-14.5) Platelet Count 49 x10^3/uL (140-400) 43 x10^3/uL (140-400) Neutrophils (%) (Auto) 58 % (31-73) 70 % (31-73) Lymphocytes (%) (Auto) 30 % (24-48) 19 % (24-48) Monocytes (%) (Auto) 9 % (0-9) 8 % (0-9) Eosinophils (%) (Auto) 3 % (0-3) 2 % (0-3) Basophils (%) (Auto) 1 % (0-3) 1 % (0-3) Neutrophils # (Auto) 2.2 x10^3uL (1.8-7.7) 2.7 x10^3uL (1.8-7.7) Lymphocytes # (Auto) 1.1 x10^3/uL (1.0-4.8) 0.7 x10^3/uL (1.0-4.8) Monocytes # (Auto) 0.3 x10^3/uL (0.0-1.1) 0.3 x10^3/uL (0.0-1.1) Eosinophils # (Auto) 0.1 x10^3/uL (0.0-0.7) 0.1 x10^3/uL (0.0-0.7) Basophils # (Auto) 0.0 x10^3/uL (0.0-0.2) 0.0 x10^3/uL (0.0-0.2) BUN/Creatinine Ratio 16 (6-20) 13 (6-20) Total Bilirubin 0.4 mg/dL (0.2-1.0) 0.5 mg/dL (0.2-1.0) Aspartate Amino Transf (AST/SGOT) 13 U/L (15-37) 12 U/L (15-37) Alanine Aminotransferase (ALT/SGPT) 6 U/L (14-59) 9 U/L (14-59) Alkaline Phosphatase 48 U/L (46-116) 48 U/L (46-116) Total Protein 6.0 g/dL (6.4-8.2) 5.2 g/dL (6.4-8.2) Albumin 2.6 g/dL (3.4-5.0) 2.2 g/dL (3.4-5.0) Albumin/Globulin Ratio 0.8 (1.0-1.7) 0.7 (1.0-1.7) Prothrombin Time 16.8 SEC (11.7-14.0) Prothromb Time International Ratio 1.4 (0.8-1.1) Activated Partial Thromboplast Time 44 SEC (24-38) Laboratory Tests Test 05/24/18 10:35 05/25/18 07:05 Prothrombin Time 16.8 SEC (11.7-14.0) Prothromb Time International Ratio 1.4 (0.8-1.1) Activated Partial Thromboplast Time 44 SEC (24-38) White Blood Count 3.8 x10^3/uL (4.0-11.0) Red Blood Count 3.64 x10^6/uL (3.50-5.40) Hemoglobin 11.6 g/dL (12.0-15.5) Hematocrit 33.7 % (36.0-47.0) Mean Corpuscular Volume 93 fL (79-100) Mean Corpuscular Hemoglobin 32 pg (25-35) Mean Corpuscular Hemoglobin Concent 34 g/dL (31-37) Red Cell Distribution Width 16.4 % (11.5-14.5) Platelet Count 43 x10^3/uL (140-400) Neutrophils (%) (Auto) 70 % (31-73) Lymphocytes (%) (Auto) 19 % (24-48) Monocytes (%) (Auto) 8 % (0-9) Eosinophils (%) (Auto) 2 % (0-3) Basophils (%) (Auto) 1 % (0-3) Neutrophils # (Auto) 2.7 x10^3uL (1.8-7.7) Lymphocytes # (Auto) 0.7 x10^3/uL (1.0-4.8) Monocytes # (Auto) 0.3 x10^3/uL (0.0-1.1) Eosinophils # (Auto) 0.1 x10^3/uL (0.0-0.7) Basophils # (Auto) 0.0 x10^3/uL (0.0-0.2) Sodium Level 137 mmol/L (136-145) Potassium Level 4.0 mmol/L (3.5-5.1) Chloride Level 106 mmol/L (98-107) Carbon Dioxide Level 18 mmol/L (21-32) Anion Gap 13 (6-14) Blood Urea Nitrogen 20 mg/dL (7-20) Creatinine 1.5 mg/dL (0.6-1.0) Estimated GFR (Cockcroft-Gault) 33.5 BUN/Creatinine Ratio 13 (6-20) Glucose Level 66 mg/dL (70-99) Calcium Level 8.2 mg/dL (8.5-10.1) Total Bilirubin 0.5 mg/dL (0.2-1.0) Aspartate Amino Transf (AST/SGOT) 12 U/L (15-37) Alanine Aminotransferase (ALT/SGPT) 9 U/L (14-59) Alkaline Phosphatase 48 U/L (46-116) Total Protein 5.2 g/dL (6.4-8.2) Albumin 2.2 g/dL (3.4-5.0) Albumin/Globulin Ratio 0.7 (1.0-1.7) Medications Current Medications Sodium Chloride 1,000 ml @ 1,000 mls/hr 1X ONCE IV Last administered on at 18:32; Start 05/22/18 at 18:30; Stop 05/22/18 at 19:29; Status DC Ondansetron HCl (Zofran) 8 mg 1X ONCE IV Last administered on 05/22/18at 18:31 ; Start 05/22/18 at 18:30; Stop 05/22/18 at 18:31; Status DC Magnesium Sulfate/ Dextrose 100 ml @ 100 mls/hr 1X ONCE IV Last administered on 05/22/18at 23:47; Start 05/22/18 at 23:30; Stop 05/23/18 at 00:29; Status DC Sodium Chloride 1,000 ml @ 75 mls/hr [id number] IV Last administered on at 04:50; Start 05/22/18 at 23:30 Amlodipine Besylate (Norvasc) 5 mg DAILY PO Last administered on 05/25/18 09: 07; Start 05/23/18 at 09:00 Apixaban (Eliquis) 5 mg BID PO Last administered on 05/25/18 09:07; Start 05/23/18 at 09:00 Atorvastatin Calcium (Lipitor) 40 mg QHS PO Last administered on 05/24/18at 21: 02; Start 05/23/18 at 21:00 Levetiracetam (Keppra) 500 mg BID PO Last administered on 05/25/18 09:07; Start 05/23/18 at 09:00 Ondansetron HCl (Zofran Odt) 4 mg Q6HRS PO Last administered on 05/25/18at 06:26 ; Start 05/23/18 at 00:00 Citalopram Hydrobromide (CeleXA) 20 mg DAILY PO Last administered on 05/25/18 09:07; Start 05/23/18 at 09:00 Pantoprazole Sodium (Protonix) 40 mg DAILYAC PO Last administered on 05/25/18 09:07; Start 05/23/18 at 07:30 Active Scripts Active Reported Levetiracetam 500 Mg Tablet 1 Tab PO BID Eliquis (Apixaban) 5 Mg Tablet 5 Mg PO BID Lisinopril 20 Mg Tablet 1 Tab PO DAILY Escitalopram Oxalate 10 Mg Tablet 1 Tab PO DAILY Amlodipine Besylate 5 Mg Tablet 5 Mg PO DAILY Ciprofloxacin Hcl 250 Mg Tablet 1 Tab PO BID Omeprazole 40 Mg Capsule.dr 40 Mg PO DAILY Zofran Odt (Ondansetron) 4 Mg Tab.rapdis 1 Tab SL Q6HRS Vitals/I & O Vital Sign - Last 24 Hours 05/24/18 05/24/18 05/24/18 05/24/18 10:12 11:00 15:00 19:00 Temp 97.5 97.4 97.8 97.5 97.4 97.8 Pulse 65 59 105 62 Resp 16 16 17 B/P (MAP) 120/73 121/74 (90) 128/73 (91) 120/73 (89) Pulse Ox 94 96 97 O2 Delivery Room Air Room Air Room Air 05/24/18 05/24/18 05/25/18 05/25/18 20:00 23:00 03:00 07:00 Temp 97.9 97.5 97.9 97.9 97.5 97.9 Pulse 61 63 58 Resp 19 18 B/P (MAP) 106/71 (83) 125/69 (87) 131/74 (93) Pulse Ox 96 95 99 O2 Delivery Room Air Room Air Room Air Room Air 05/25/18 09:07 Pulse 58 B/P (MAP) 131/74 Intake and Output 05/24/18 05/24/18 05/25/18 15:00 23:00 07:00 Intake Total 300 ml 100 ml Output Total 350 ml 600 ml Balance 300 ml -250 ml -600 ml Nutrition Consultation Dietary Evaluation: Recommendations by RD: Increase Calorie Intake Comments: nepro q day Expected Outcomes/Goals: to meet > 75% est nutr needs Interpretation of weight loss: >20% in 1 year Malnutrition Findings: Food and Nutrition Intake (Sev: <50% est energy req 5days Weight Status: Appropriate VAUGHN MARK MD May 25, 2018 09:16
--- NOTE | 2018-05-25 10:29 | PDOC2 ---
CONSULT Date of Consult Date of Consult DATE: 05/25/18 TIME: 10:23 Reason for Consult Reason for Consult: BRODIE Referring Physician Referring Physician: AYSHA Identification/Chief Complaint Chief Complaint CONFUSION Source Source: Chart review History of Present Illness Reason for Visit: THIS IS A 77 YR OLD WITH CONFUSION. RECENT HX OF UTI FOR WHICH SHE WAS TREATED WITH CIPRO. BROUGHT IN BY FAMILY AND THERE IS CONCERNS OF A CVA. PT UNDERGOING NEUROLOGY EVALUATION. CR HAS BEEN USUALLY IN THE 1.0-1.5 RANGE C/W CKD STAGE 3. ADMIT CR IS 3.5. POOR PO INTAKE REPORTED. NO OTHER PERTINENT HX. NO NEPHROTOXINS OR HEMODYNAMIC INSTABILITY NOTED Past Medical History Cardiovascular: CAD, HTN GI: GERD Hepatobiliary: No pertinent hx Musculoskeletal: Osteoarthritis, Other Renal/: Chronic renal failure Past Surgical History Past Surgical History: Appendectomy, Cholecystectomy, Cataract Removal, C- Section, Total hip replacement, Other Family History Family History: Hypertension Social History Social History: Parent No ALCOHOL: none Drugs: None Current Problem List Problem List Problems Medical Problems: (1) BRODIE (acute kidney injury) Status: Acute (2) Dehydration Status: Acute (3) Hyperkalemia Status: Acute Current Medications Current Medications Current Medications Sodium Chloride 1,000 ml @ 1,000 mls/hr 1X ONCE IV Last administered on at 18:32; Start 05/22/18 at 18:30; Stop 05/22/18 at 19:29; Status DC Ondansetron HCl (Zofran) 8 mg 1X ONCE IV Last administered on 05/22/18at 18:31 ; Start 05/22/18 at 18:30; Stop 05/22/18 at 18:31; Status DC Magnesium Sulfate/ Dextrose 100 ml @ 100 mls/hr 1X ONCE IV Last administered on 05/22/18at 23:47; Start 05/22/18 at 23:30; Stop 05/23/18 at 00:29; Status DC Sodium Chloride 1,000 ml @ 75 mls/hr [id number] IV Last administered on at 04:50; Start 05/22/18 at 23:30 Amlodipine Besylate (Norvasc) 5 mg DAILY PO Last administered on 05/25/18at 09: 07; Start 05/23/18 at 09:00 Apixaban (Eliquis) 5 mg BID PO Last administered on 05/25/18 09:07; Start 05/23/18 at 09:00 Atorvastatin Calcium (Lipitor) 40 mg QHS PO Last administered on 05/24/18at 21: 02; Start 05/23/18 at 21:00 Levetiracetam (Keppra) 500 mg BID PO Last administered on 05/25/18 09:07; Start 05/23/18 at 09:00 Ondansetron HCl (Zofran Odt) 4 mg Q6HRS PO Last administered on 05/25/18 06:26 ; Start 05/23/18 at 00:00 Citalopram Hydrobromide (CeleXA) 20 mg DAILY PO Last administered on 05/25/18 09:07; Start 05/23/18 at 09:00 Pantoprazole Sodium (Protonix) 40 mg DAILYAC PO Last administered on 05/25/18 09:07; Start 05/23/18 at 07:30 Active Scripts Active Reported Levetiracetam 500 Mg Tablet 1 Tab PO BID Eliquis (Apixaban) 5 Mg Tablet 5 Mg PO BID Lisinopril 20 Mg Tablet 1 Tab PO DAILY Escitalopram Oxalate 10 Mg Tablet 1 Tab PO DAILY Amlodipine Besylate 5 Mg Tablet 5 Mg PO DAILY Ciprofloxacin Hcl 250 Mg Tablet 1 Tab PO BID Omeprazole 40 Mg Capsule.dr 40 Mg PO DAILY Zofran Odt (Ondansetron) 4 Mg Tab.rapdis 1 Tab SL Q6HRS Allergies Allergies: Coded Allergies: pneumococcal vaccine (Verified Allergy, Unknown, Swelling, 05/22/18) family reports blackish-purple down entire arm of injection morphine (Verified Adverse Reaction, Severe, nausea/abdominal pain, 12/24/14 ) ROS Review of System UNABLE TO OBTAIN Physical Exam General: Alert, Cooperative, No acute distress HEENT: Atraumatic, PERRLA, EOMI, Other (DRY MUCOSA) Lungs: Clear to auscultation Heart: Regular rate Abdomen: Normal bowel sounds, Soft Extremities: No clubbing MUSCULOSKELETAL: No deformity, Other (ATROPHY) Vitals VITALS Vital Signs Date Time Temp Pulse Resp B/P (MAP) Pulse Ox O2 Delivery O2 Flow Rate FiO2 05/25/18 09:07 58 131/74 05/25/18 07:00 97.9 18 99 Room Air 97.9 Labs Labs Laboratory Tests Test 05/23/18 22:15 05/24/18 05:40 05/24/18 10:35 05/25/18 05:00 Sodium Level 136 mmol/L (136-145) 138 mmol/L (136-145) Potassium Level 4.5 mmol/L (3.5-5.1) 4.7 mmol/L (3.5-5.1) Chloride Level 106 mmol/L (98-107) 106 mmol/L (98-107) Carbon Dioxide Level 18 mmol/L (21-32) 20 mmol/L (21-32) Anion Gap 12 (6-14) 12 (6-14) Blood Urea Nitrogen 33 mg/dL (7-20) 31 mg/dL (7-20) Creatinine 2.1 mg/dL (0.6-1.0) 1.9 mg/dL (0.6-1.0) Estimated GFR (Cockcroft-Gault) 22.7 25.5 Glucose Level 65 mg/dL (70-99) 68 mg/dL (70-99) Calcium Level 8.3 mg/dL (8.5-10.1) 8.7 mg/dL (8.5-10.1) White Blood Count 3.8 x10^3/uL (4.0-11.0) Red Blood Count 4.10 x10^6/uL (3.50-5.40) Hemoglobin 12.9 g/dL (12.0-15.5) Hematocrit 38.2 % (36.0-47.0) Mean Corpuscular Volume 93 fL (79-100) Mean Corpuscular Hemoglobin 31 pg (25-35) Mean Corpuscular Hemoglobin Concent 34 g/dL (31-37) Red Cell Distribution Width 16.1 % (11.5-14.5) Platelet Count 49 x10^3/uL (140-400) Neutrophils (%) (Auto) 58 % (31-73) Lymphocytes (%) (Auto) 30 % (24-48) Monocytes (%) (Auto) 9 % (0-9) Eosinophils (%) (Auto) 3 % (0-3) Basophils (%) (Auto) 1 % (0-3) Neutrophils # (Auto) 2.2 x10^3uL (1.8-7.7) Lymphocytes # (Auto) 1.1 x10^3/uL (1.0-4.8) Monocytes # (Auto) 0.3 x10^3/uL (0.0-1.1) Eosinophils # (Auto) 0.1 x10^3/uL (0.0-0.7) Basophils # (Auto) 0.0 x10^3/uL (0.0-0.2) BUN/Creatinine Ratio 16 (6-20) Total Bilirubin 0.4 mg/dL (0.2-1.0) Aspartate Amino Transf (AST/SGOT) 13 U/L (15-37) Alanine Aminotransferase (ALT/SGPT) 6 U/L (14-59) Alkaline Phosphatase 48 U/L (46-116) Total Protein 6.0 g/dL (6.4-8.2) Albumin 2.6 g/dL (3.4-5.0) Albumin/Globulin Ratio 0.8 (1.0-1.7) Prothrombin Time 16.8 SEC (11.7-14.0) Prothromb Time International Ratio 1.4 (0.8-1.1) Activated Partial Thromboplast Time 44 SEC (24-38) Magnesium Level 1.3 mg/dL (1.8-2.4) Test 05/25/18 07:05 White Blood Count 3.8 x10^3/uL (4.0-11.0) Red Blood Count 3.64 x10^6/uL (3.50-5.40) Hemoglobin 11.6 g/dL (12.0-15.5) Hematocrit 33.7 % (36.0-47.0) Mean Corpuscular Volume 93 fL (79-100) Mean Corpuscular Hemoglobin 32 pg (25-35) Mean Corpuscular Hemoglobin Concent 34 g/dL (31-37) Red Cell Distribution Width 16.4 % (11.5-14.5) Platelet Count 43 x10^3/uL (140-400) Neutrophils (%) (Auto) 70 % (31-73) Lymphocytes (%) (Auto) 19 % (24-48) Monocytes (%) (Auto) 8 % (0-9) Eosinophils (%) (Auto) 2 % (0-3) Basophils (%) (Auto) 1 % (0-3) Neutrophils # (Auto) 2.7 x10^3uL (1.8-7.7) Lymphocytes # (Auto) 0.7 x10^3/uL (1.0-4.8) Monocytes # (Auto) 0.3 x10^3/uL (0.0-1.1) Eosinophils # (Auto) 0.1 x10^3/uL (0.0-0.7) Basophils # (Auto) 0.0 x10^3/uL (0.0-0.2) Sodium Level 137 mmol/L (136-145) Potassium Level 4.0 mmol/L (3.5-5.1) Chloride Level 106 mmol/L (98-107) Carbon Dioxide Level 18 mmol/L (21-32) Anion Gap 13 (6-14) Blood Urea Nitrogen 20 mg/dL (7-20) Creatinine 1.5 mg/dL (0.6-1.0) Estimated GFR (Cockcroft-Gault) 33.5 BUN/Creatinine Ratio 13 (6-20) Glucose Level 66 mg/dL (70-99) Calcium Level 8.2 mg/dL (8.5-10.1) Total Bilirubin 0.5 mg/dL (0.2-1.0) Aspartate Amino Transf (AST/SGOT) 12 U/L (15-37) Alanine Aminotransferase (ALT/SGPT) 9 U/L (14-59) Alkaline Phosphatase 48 U/L (46-116) Total Protein 5.2 g/dL (6.4-8.2) Albumin 2.2 g/dL (3.4-5.0) Albumin/Globulin Ratio 0.7 (1.0-1.7) Laboratory Tests Test 05/24/18 10:35 05/25/18 05:00 05/25/18 07:05 Prothrombin Time 16.8 SEC (11.7-14.0) Prothromb Time International Ratio 1.4 (0.8-1.1) Activated Partial Thromboplast Time 44 SEC (24-38) Magnesium Level 1.3 mg/dL (1.8-2.4) White Blood Count 3.8 x10^3/uL (4.0-11.0) Red Blood Count 3.64 x10^6/uL (3.50-5.40) Hemoglobin 11.6 g/dL (12.0-15.5) Hematocrit 33.7 % (36.0-47.0) Mean Corpuscular Volume 93 fL (79-100) Mean Corpuscular Hemoglobin 32 pg (25-35) Mean Corpuscular Hemoglobin Concent 34 g/dL (31-37) Red Cell Distribution Width 16.4 % (11.5-14.5) Platelet Count 43 x10^3/uL (140-400) Neutrophils (%) (Auto) 70 % (31-73) Lymphocytes (%) (Auto) 19 % (24-48) Monocytes (%) (Auto) 8 % (0-9) Eosinophils (%) (Auto) 2 % (0-3) Basophils (%) (Auto) 1 % (0-3) Neutrophils # (Auto) 2.7 x10^3uL (1.8-7.7) Lymphocytes # (Auto) 0.7 x10^3/uL (1.0-4.8) Monocytes # (Auto) 0.3 x10^3/uL (0.0-1.1) Eosinophils # (Auto) 0.1 x10^3/uL (0.0-0.7) Basophils # (Auto) 0.0 x10^3/uL (0.0-0.2) Sodium Level 137 mmol/L (136-145) Potassium Level 4.0 mmol/L (3.5-5.1) Chloride Level 106 mmol/L (98-107) Carbon Dioxide Level 18 mmol/L (21-32) Anion Gap 13 (6-14) Blood Urea Nitrogen 20 mg/dL (7-20) Creatinine 1.5 mg/dL (0.6-1.0) Estimated GFR (Cockcroft-Gault) 33.5 BUN/Creatinine Ratio 13 (6-20) Glucose Level 66 mg/dL (70-99) Calcium Level 8.2 mg/dL (8.5-10.1) Total Bilirubin 0.5 mg/dL (0.2-1.0) Aspartate Amino Transf (AST/SGOT) 12 U/L (15-37) Alanine Aminotransferase (ALT/SGPT) 9 U/L (14-59) Alkaline Phosphatase 48 U/L (46-116) Total Protein 5.2 g/dL (6.4-8.2) Albumin 2.2 g/dL (3.4-5.0) Albumin/Globulin Ratio 0.7 (1.0-1.7) Assessment/Plan Assessment/Plan IMP DEHYDRATION DEMENTIA ENCEPHALOPATHY RECENT UTI ? CVA BRODIE-WITH PEAK CR OF 3.5 CKD STAGE 3 WITH CR OF 1.0-1.5 RANGE PLAN HYDRATION NEUROLOGY EVALUATION HOLD LISINOPRIL MRI WITH CONTRAST OK SINCE GFR OVER 30 NOW WILL FOLLOW SHANTE ANGELO MD May 25, 2018 10:29
[2018-05-25 10:50] VITALS: BP 133/80
[2018-05-25 15:00] VITALS: BP 129/74
[2018-05-25] MEDS ORDERED: ANTI-COAG MONITOR BY PHARMACY. MC PRN (15:15)
[2018-05-25] MEDS ORDERED: NICOTINE 14MG PATCH. TD PRN (16:45)
--- NOTE | 2018-05-25 17:18 | PDOC ---
PROGRESS NOTES Assessment 1. New stroke in the region of her previous stroke in the left posterior parietal lobe visualized on MRI brain. This is very small. This would not account for any left-sided symptoms but could certainly affect her communication and cause more confusion. She seems better today. She is more attentive but still has word finding difficulty. 2. Acute kidney failure superimposed on chronic kidney disease. Kidney function is improving. 3. Hyperlipidemia 4. Hypertension-the blood pressures have been better controlled. 5. Thrombocytopenia-stable Plan 1. Carotid Doppler has just been performed to better evaluate for any change in carotid stenosis. Plym in her report is negative. 2. I will obtain a fasting lipid profile in the morning to make sure she is doing well with hyperlipidemia on the current regimen. 3. She will continue with her current regimen to manage the blood pressure. 4. She has been evaluated by hematology for thrombocytopenia. Specific recommendations are not needed at this time. 5. She will be evaluated by physical, speech and occupational therapies. He dismissed when medically stable. We will need to determine if she is able to return to her previous living situation or require further rehabilitation. Subjective Do I get to go home today? Objective Vital Signs Date Time Temp Pulse Resp B/P (MAP) Pulse Ox O2 Delivery O2 Flow Rate FiO2 05/25/18 15:00 97.7 62 18 129/74 (92) 100 Room Air 97.7 Intake and Output 05/25/18 07:00 Intake Total 400 ml Output Total 950 ml Balance -550 ml Intake Oral 400 ml Output Urine Total 950 ml # Voids 3 # Bowel Movements 1 PHYSICAL EXAM She was lying in the bed watching television. She was pleasant and attentive. She was able to follow commands well. She had difficulty answering questions verbally because of word finding. The eyes were conjugate and face symmetric. There was no arm drift. Power was fairly symmetric in the arms. Power was fairly symmetric in the legs. She was generally weak. Sensation was intact to light touch. Finger to nose was well coordinated. Review of Relevant I have reviewed the following items josee (where applicable) has been applied. Labs Laboratory Tests Test 05/23/18 22:15 05/24/18 05:40 05/24/18 10:35 05/25/18 05:00 Sodium Level 136 mmol/L (136-145) 138 mmol/L (136-145) Potassium Level 4.5 mmol/L (3.5-5.1) 4.7 mmol/L (3.5-5.1) Chloride Level 106 mmol/L (98-107) 106 mmol/L (98-107) Carbon Dioxide Level 18 mmol/L (21-32) 20 mmol/L (21-32) Anion Gap 12 (6-14) 12 (6-14) Blood Urea Nitrogen 33 mg/dL (7-20) 31 mg/dL (7-20) Creatinine 2.1 mg/dL (0.6-1.0) 1.9 mg/dL (0.6-1.0) Estimated GFR (Cockcroft-Gault) 22.7 25.5 Glucose Level 65 mg/dL (70-99) 68 mg/dL (70-99) Calcium Level 8.3 mg/dL (8.5-10.1) 8.7 mg/dL (8.5-10.1) White Blood Count 3.8 x10^3/uL (4.0-11.0) Red Blood Count 4.10 x10^6/uL (3.50-5.40) Hemoglobin 12.9 g/dL (12.0-15.5) Hematocrit 38.2 % (36.0-47.0) Mean Corpuscular Volume 93 fL (79-100) Mean Corpuscular Hemoglobin 31 pg (25-35) Mean Corpuscular Hemoglobin Concent 34 g/dL (31-37) Red Cell Distribution Width 16.1 % (11.5-14.5) Platelet Count 49 x10^3/uL (140-400) Neutrophils (%) (Auto) 58 % (31-73) Lymphocytes (%) (Auto) 30 % (24-48) Monocytes (%) (Auto) 9 % (0-9) Eosinophils (%) (Auto) 3 % (0-3) Basophils (%) (Auto) 1 % (0-3) Neutrophils # (Auto) 2.2 x10^3uL (1.8-7.7) Lymphocytes # (Auto) 1.1 x10^3/uL (1.0-4.8) Monocytes # (Auto) 0.3 x10^3/uL (0.0-1.1) Eosinophils # (Auto) 0.1 x10^3/uL (0.0-0.7) Basophils # (Auto) 0.0 x10^3/uL (0.0-0.2) BUN/Creatinine Ratio 16 (6-20) Total Bilirubin 0.4 mg/dL (0.2-1.0) Aspartate Amino Transf (AST/SGOT) 13 U/L (15-37) Alanine Aminotransferase (ALT/SGPT) 6 U/L (14-59) Alkaline Phosphatase 48 U/L (46-116) Total Protein 6.0 g/dL (6.4-8.2) Albumin 2.6 g/dL (3.4-5.0) Albumin/Globulin Ratio 0.8 (1.0-1.7) Prothrombin Time 16.8 SEC (11.7-14.0) Prothromb Time International Ratio 1.4 (0.8-1.1) Activated Partial Thromboplast Time 44 SEC (24-38) Magnesium Level 1.3 mg/dL (1.8-2.4) Test 05/25/18 07:05 White Blood Count 3.8 x10^3/uL (4.0-11.0) Red Blood Count 3.64 x10^6/uL (3.50-5.40) Hemoglobin 11.6 g/dL (12.0-15.5) Hematocrit 33.7 % (36.0-47.0) Mean Corpuscular Volume 93 fL (79-100) Mean Corpuscular Hemoglobin 32 pg (25-35) Mean Corpuscular Hemoglobin Concent 34 g/dL (31-37) Red Cell Distribution Width 16.4 % (11.5-14.5) Platelet Count 43 x10^3/uL (140-400) Neutrophils (%) (Auto) 70 % (31-73) Lymphocytes (%) (Auto) 19 % (24-48) Monocytes (%) (Auto) 8 % (0-9) Eosinophils (%) (Auto) 2 % (0-3) Basophils (%) (Auto) 1 % (0-3) Neutrophils # (Auto) 2.7 x10^3uL (1.8-7.7) Lymphocytes # (Auto) 0.7 x10^3/uL (1.0-4.8) Monocytes # (Auto) 0.3 x10^3/uL (0.0-1.1) Eosinophils # (Auto) 0.1 x10^3/uL (0.0-0.7) Basophils # (Auto) 0.0 x10^3/uL (0.0-0.2) Sodium Level 137 mmol/L (136-145) Potassium Level 4.0 mmol/L (3.5-5.1) Chloride Level 106 mmol/L (98-107) Carbon Dioxide Level 18 mmol/L (21-32) Anion Gap 13 (6-14) Blood Urea Nitrogen 20 mg/dL (7-20) Creatinine 1.5 mg/dL (0.6-1.0) Estimated GFR (Cockcroft-Gault) 33.5 BUN/Creatinine Ratio 13 (6-20) Glucose Level 66 mg/dL (70-99) Calcium Level 8.2 mg/dL (8.5-10.1) Total Bilirubin 0.5 mg/dL (0.2-1.0) Aspartate Amino Transf (AST/SGOT) 12 U/L (15-37) Alanine Aminotransferase (ALT/SGPT) 9 U/L (14-59) Alkaline Phosphatase 48 U/L (46-116) Total Protein 5.2 g/dL (6.4-8.2) Albumin 2.2 g/dL (3.4-5.0) Albumin/Globulin Ratio 0.7 (1.0-1.7) Laboratory Tests Test 05/25/18 05:00 05/25/18 07:05 Magnesium Level 1.3 mg/dL (1.8-2.4) White Blood Count 3.8 x10^3/uL (4.0-11.0) Red Blood Count 3.64 x10^6/uL (3.50-5.40) Hemoglobin 11.6 g/dL (12.0-15.5) Hematocrit 33.7 % (36.0-47.0) Mean Corpuscular Volume 93 fL (79-100) Mean Corpuscular Hemoglobin 32 pg (25-35) Mean Corpuscular Hemoglobin Concent 34 g/dL (31-37) Red Cell Distribution Width 16.4 % (11.5-14.5) Platelet Count 43 x10^3/uL (140-400) Neutrophils (%) (Auto) 70 % (31-73) Lymphocytes (%) (Auto) 19 % (24-48) Monocytes (%) (Auto) 8 % (0-9) Eosinophils (%) (Auto) 2 % (0-3) Basophils (%) (Auto) 1 % (0-3) Neutrophils # (Auto) 2.7 x10^3uL (1.8-7.7) Lymphocytes # (Auto) 0.7 x10^3/uL (1.0-4.8) Monocytes # (Auto) 0.3 x10^3/uL (0.0-1.1) Eosinophils # (Auto) 0.1 x10^3/uL (0.0-0.7) Basophils # (Auto) 0.0 x10^3/uL (0.0-0.2) Sodium Level 137 mmol/L (136-145) Potassium Level 4.0 mmol/L (3.5-5.1) Chloride Level 106 mmol/L (98-107) Carbon Dioxide Level 18 mmol/L (21-32) Anion Gap 13 (6-14) Blood Urea Nitrogen 20 mg/dL (7-20) Creatinine 1.5 mg/dL (0.6-1.0) Estimated GFR (Cockcroft-Gault) 33.5 BUN/Creatinine Ratio 13 (6-20) Glucose Level 66 mg/dL (70-99) Calcium Level 8.2 mg/dL (8.5-10.1) Total Bilirubin 0.5 mg/dL (0.2-1.0) Aspartate Amino Transf (AST/SGOT) 12 U/L (15-37) Alanine Aminotransferase (ALT/SGPT) 9 U/L (14-59) Alkaline Phosphatase 48 U/L (46-116) Total Protein 5.2 g/dL (6.4-8.2) Albumin 2.2 g/dL (3.4-5.0) Albumin/Globulin Ratio 0.7 (1.0-1.7) Medications Current Medications Sodium Chloride 1,000 ml @ 1,000 mls/hr 1X ONCE IV Last administered on at 18:32; Start 05/22/18 at 18:30; Stop 05/22/18 at 19:29; Status DC Ondansetron HCl (Zofran) 8 mg 1X ONCE IV Last administered on 05/22/18at 18:31 ; Start 05/22/18 at 18:30; Stop 05/22/18 at 18:31; Status DC Magnesium Sulfate/ Dextrose 100 ml @ 100 mls/hr 1X ONCE IV Last administered on 05/22/18at 23:47; Start 05/22/18 at 23:30; Stop 05/23/18 at 00:29; Status DC Sodium Chloride 1,000 ml @ 50 mls/hr Q20H IV Last administered on 05/25/18at 04 :50; Start 05/22/18 at 23:30 Amlodipine Besylate (Norvasc) 5 mg DAILY PO Last administered on 05/25/18 09: 07; Start 05/23/18 at 09:00 Apixaban (Eliquis) 5 mg BID PO Last administered on 05/25/18 09:07; Start 05/23/18 at 09:00 Atorvastatin Calcium (Lipitor) 40 mg QHS PO Last administered on 05/24/18at 21: 02; Start 05/23/18 at 21:00 Levetiracetam (Keppra) 500 mg BID PO Last administered on 05/25/18 09:07; Start 05/23/18 at 09:00 Ondansetron HCl (Zofran Odt) 4 mg Q6HRS PO Last administered on 05/25/18at 12:52 ; Start 05/23/18 at 00:00 Citalopram Hydrobromide (CeleXA) 20 mg DAILY PO Last administered on 05/25/18 09:07; Start 05/23/18 at 09:00 Pantoprazole Sodium (Protonix) 40 mg DAILYAC PO Last administered on 05/25/18 09:07; Start 05/23/18 at 07:30 Info (Anti-Coagulation Monitoring By Pharmacy) 1 each PRN DAILY PRN MC SEE COMMENTS Last administered on 05/25/18at 15:19; Start 05/25/18 at 15:15 Nicotine (Nicoderm Cq 14mg) 1 patch PRN DAILY PRN TD SMOKING CESSATION; Start 05/25/18 at 16:45 Active Scripts Active Reported Levetiracetam 500 Mg Tablet 1 Tab PO BID Eliquis (Apixaban) 5 Mg Tablet 5 Mg PO BID Lisinopril 20 Mg Tablet 1 Tab PO DAILY Escitalopram Oxalate 10 Mg Tablet 1 Tab PO DAILY Amlodipine Besylate 5 Mg Tablet 5 Mg PO DAILY Ciprofloxacin Hcl 250 Mg Tablet 1 Tab PO BID Omeprazole 40 Mg Capsule.dr 40 Mg PO DAILY Zofran Odt (Ondansetron) 4 Mg Tab.rapdis 1 Tab SL Q6HRS Vitals/I & O Vital Sign - Last 24 Hours 05/24/18 05/24/18 05/24/18 05/25/18 19:00 20:00 23:00 03:00 Temp 97.8 97.9 97.5 97.8 97.9 97.5 Pulse 62 61 63 Resp 17 18 19 B/P (MAP) 120/73 (89) 106/71 (83) 125/69 (87) Pulse Ox 97 96 95 O2 Delivery Room Air Room Air Room Air Room Air 05/25/18 05/25/18 05/25/18 05/25/18 07:00 08:00 09:07 10:50 Temp 97.9 97.9 97.9 97.9 Pulse 58 58 62 Resp 18 18 B/P (MAP) 131/74 (93) 131/74 133/80 (97) Pulse Ox 99 100 O2 Delivery Room Air Room Air Room Air 05/25/18 15:00 Temp 97.7 97.7 Pulse 62 Resp 18 B/P (MAP) 129/74 (92) Pulse Ox 100 O2 Delivery Room Air Intake and Output 05/24/18 05/24/18 05/25/18 15:00 23:00 07:00 Intake Total 300 ml 100 ml Output Total 350 ml 600 ml Balance 300 ml -250 ml -600 ml ROXIE HERRERA MD May 25, 2018 17:18
[2018-05-25 19:00] VITALS: BP 117/72
--- NOTE | 2018-05-25 20:02 | RAD ---
Carotid Doppler dated 05/25/2018. Comparison none. Clinical Indication: History of CVA. Findings: Grayscale, color flow and spectral waveform analysis was performed. Minimal plaque at both carotid bifurcation. No focal stenosis. The waveforms are within normal limits. Flow within the bilateral vertebral arteries is antegrade. Velocity measurements are as follows (centimeters per second ) Peak systolic velocity right left ICA 49 48 EDV 14 12 CCA 39 53 ICA/CCA ratio 1.25 0.91 Impression: No evidence of hemodynamically significant carotid stenosis. Stenosis calculations for carotid ultrasound studies are derived from validated velocity criteria which are known to correlate with the NASCET methodology. Electronically signed by: Jethro Rock MD (05/25/2018 7:58 PM) [facility]
[2018-05-25] MEDS: ATORVASTATIN CALCIUM 40 MG TABLET. PO SCH (20:23)
[2018-05-25 23:00] VITALS: BP 121/74
[2018-05-26 03:00] VITALS: BP 121/70
[2018-05-26 05:47] LABS: BASO % 1 % (0-3); EOS # 0.1 x10^3/uL (0.0-0.7); EOS % 3 % (0-3); HEMATOCRIT 31.7 % (36.0-47.0); HEMOGLOBIN 10.8 g/dL (12.0-15.5); LYMPH # 0.9 x10^3/uL (1.0-4.8); LYMPH % 30 % (24-48); MEAN CORPUSCULAR HEMOGLOBIN 31 pg (25-35); MEAN CORPUSCULAR HGB CONC 34 g/dL (31-37); MEAN CORPUSCULAR VOLUME 92 fL (79-100); MONO # 0.2 x10^3/uL (0.0-1.1); MONO % 7 % (0-9); NEUT # 1.8 x10^3uL (1.8-7.7); NEUT % 59 % (31-73); PLATELET COUNT 46 x10^3/uL (140-400); RED BLOOD COUNT 3.46 x10^6/uL (3.50-5.40); RED CELL DISTRIBUTION WIDTH 16.1 % (11.5-14.5); WHITE BLOOD COUNT 3.1 x10^3/uL (4.0-11.0)
[2018-05-26] MEDS: ONDANSETRON ODT 4 MG TAB.RAPDIS. PO SCH ×4 (06:00→18:00)
[2018-05-26 06:05] LABS: ALBUMIN 2.1 g/dL (3.4-5.0); ALBUMIN/GLOBULIN RATIO 0.8 (1.0-1.7); ALK PHOS 41 U/L (46-116); ANION GAP 12 (6-14); AST (SGOT) 11 U/L (15-37); BLOOD UREA NITROGEN 14 mg/dL (7-20); BUN/CREATININE RATIO 11 (6-20); CARBON DIOXIDE 18 mmol/L (21-32); CHLORIDE 107 mmol/L (98-107); CHOLESTEROL 63 mg/dL (0-200); CREATININE 1.3 mg/dL (0.6-1.0); GFR 39.5; GLUCOSE 65 mg/dL (70-99); HDLC 38 mg/dL (40-60); LDLC 13 mg/dL (0-100); MAGNESIUM 1.3 mg/dL (1.8-2.4); POTASSIUM 3.8 mmol/L (3.5-5.1); SODIUM 137 mmol/L (136-145); TOTAL BILIRUBIN 0.4 mg/dL (0.2-1.0); TOTAL PROTEIN 4.9 g/dL (6.4-8.2); TRIGLYCERIDES 61 mg/dL (0-150); VLDLC 12 mg/dL (0-40)
[2018-05-26 06:17] LABS: ALT (SGPT) < 6 U/L (14-59); CHOLESTEROL/HDL RATIO 1.7
[2018-05-26 07:00] VITALS: BP 123/68
[2018-05-26] MEDS ORDERED: MAGNESIUM SULFATE 2GM 50 ML IV PRN (09:15)
--- NOTE | 2018-05-26 09:19 | PDOC ---
SUBJECTIVE ROS Asked to see for AK I, dehydration Patient just returned from echocardiogram. Denies any new complaints except feeling cold. Denies diarrhea. Patient reportedly pulled her Christine catheter out herself yesterday night CVS: no Orthopnea, no CP RESP: no SOB, no NGUYEN GI: no Nausea, no Vomiting : no Dysuria, no Urgency OBJECTIVE Vital Signs Vital Signs Date Time Temp Pulse Resp B/P (MAP) Pulse Ox O2 Delivery O2 Flow Rate FiO2 05/26/18 07:00 97.7 59 18 123/68 (86) 97 Room Air 97.7 I & 0 Intake and Output 05/26/18 07:00 Intake Total 900 ml Output Total 550 ml Balance 350 ml Intake Oral 900 ml Output Urine Total 550 ml # Voids 2 PHYSICAL EXAM Physical Exam GEN: Awake, Oriented x 2, In no distress EYES: Vision Unchanged, Conjunctiva Normal EN: No EN Drainage, Mucous Membranes moist NECK: no JVD, no JVP, Supple, no Thyromegaly CVS: S1S2, ? Murmur, No Gallop, No Rub,no Edema RESP: no Rales, no Rhonchi,no Acc. Muscle Use GI: BS + ve, NO Bruit, Non Tender, Non Distended : no CVA tenderness, no Suprapubic Tenderness DIAGNOSIS/ASSESSMENT Assessment & Plan Acute renal failure: Presumably due to dehydration: Now resolved. Underlying CK D stage III even with a baseline creatinine of 1.1-1.3 cannot be ruled out given findings on ultrasound of: "Echogenic appearing bilateral kidneys likely due to medical renal disease. Mildly atrophic appearing right kidney" Cystic structures identified in the bilateral kidneys likely cysts with the largest measuring 2 cm in the right kidney. 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 This may need follow-up with urology as an outpatient. We'll defer to primary care Dehydration: Continue IV fluids Hypomagnesemia: Replacement as ordered Hypoalbuminemia: Check prealbumin. Suspect malnutrition: TPN for now Non-anion gap Metabolic acidosis: No reported diarrhea; IV bicarbonate as ordered We will be available as needed. Please call with questions or concerns COMMENT/RELEVANT DATA Meds Current Medications Medications (Trade) Dose Ordered Sig/Dulce Start Time Stop Time Status Last Admin Dose Admin Amlodipine Besylate (Norvasc) 5 mg DAILY 05/23/18 09:00 05/25/18 09:07 5 MG Apixaban (Eliquis) 5 mg BID 05/23/18 09:00 05/25/18 20:23 5 MG Atorvastatin Calcium (Lipitor) 40 mg QHS 05/23/18 21:00 05/25/18 20:23 40 MG Citalopram Hydrobromide (CeleXA) 20 mg DAILY 05/23/18 09:00 05/25/18 09:07 20 MG Info (Anti-Coagulation Monitoring By Pharmacy) 1 each PRN DAILY PRN 05/25/18 15:15 05/25/18 15:19 1 EACH Levetiracetam (Keppra) 500 mg BID 05/23/18 09:00 05/25/18 20:23 500 MG Magnesium Sulfate/ Dextrose 100 ml @ 100 mls/hr 1X ONCE 05/22/18 23:30 05/23/18 00:29 DC 05/22/18 23:47 100 MLS/HR Nicotine (Nicoderm Cq 14mg) 1 patch PRN DAILY PRN 05/25/18 16:45 05/25/18 17:20 1 PATCH Ondansetron HCl (Zofran Odt) 4 mg Q6HRS 05/23/18 00:00 05/25/18 17:20 4 MG Ondansetron HCl (Zofran) 8 mg 1X ONCE 05/22/18 18:30 05/22/18 18:31 DC 05/22/18 18:31 8 MG Pantoprazole Sodium (Protonix) 40 mg DAILYAC 05/23/18 07:30 05/25/18 09:07 40 MG Sodium Chloride 1,000 ml @ 50 mls/hr Q20H 05/22/18 23:30 05/25/18 20:24 50 MLS/HR Lab Laboratory Tests Test 05/26/18 04:50 White Blood Count 3.1 x10^3/uL (4.0-11.0) Red Blood Count 3.46 x10^6/uL (3.50-5.40) Hemoglobin 10.8 g/dL (12.0-15.5) Hematocrit 31.7 % (36.0-47.0) Mean Corpuscular Volume 92 fL (79-100) Mean Corpuscular Hemoglobin 31 pg (25-35) Mean Corpuscular Hemoglobin Concent 34 g/dL (31-37) Red Cell Distribution Width 16.1 % (11.5-14.5) Platelet Count 46 x10^3/uL (140-400) Neutrophils (%) (Auto) 59 % (31-73) Lymphocytes (%) (Auto) 30 % (24-48) Monocytes (%) (Auto) 7 % (0-9) Eosinophils (%) (Auto) 3 % (0-3) Basophils (%) (Auto) 1 % (0-3) Neutrophils # (Auto) 1.8 x10^3uL (1.8-7.7) Lymphocytes # (Auto) 0.9 x10^3/uL (1.0-4.8) Monocytes # (Auto) 0.2 x10^3/uL (0.0-1.1) Eosinophils # (Auto) 0.1 x10^3/uL (0.0-0.7) Basophils # (Auto) 0.0 x10^3/uL (0.0-0.2) Sodium Level 137 mmol/L (136-145) Potassium Level 3.8 mmol/L (3.5-5.1) Chloride Level 107 mmol/L (98-107) Carbon Dioxide Level 18 mmol/L (21-32) Anion Gap 12 (6-14) Blood Urea Nitrogen 14 mg/dL (7-20) Creatinine 1.3 mg/dL (0.6-1.0) Estimated GFR (Cockcroft-Gault) 39.5 BUN/Creatinine Ratio 11 (6-20) Glucose Level 65 mg/dL (70-99) Calcium Level 8.0 mg/dL (8.5-10.1) Magnesium Level 1.3 mg/dL (1.8-2.4) Total Bilirubin 0.4 mg/dL (0.2-1.0) Aspartate Amino Transf (AST/SGOT) 11 U/L (15-37) Alanine Aminotransferase (ALT/SGPT) < 6 U/L (14-59) Alkaline Phosphatase 41 U/L (46-116) Total Protein 4.9 g/dL (6.4-8.2) Albumin 2.1 g/dL (3.4-5.0) Albumin/Globulin Ratio 0.8 (1.0-1.7) Triglycerides Level 61 mg/dL (0-150) Cholesterol Level 63 mg/dL (0-200) LDL Cholesterol, Calculated 13 mg/dL (0-100) VLDL Cholesterol, Calculated 12 mg/dL (0-40) Non-HDL Cholesterol Calculated 25 mg/dL (0-129) HDL Cholesterol 38 mg/dL (40-60) Cholesterol/HDL Ratio 1.7 Results All relevant outside records, renal labs, imaging studies, telemetry/EKG's were reviewed. Other Renal ultrasound as ordered and reviewed today 1. Echogenic appearing bilateral kidneys likely due to medical renal disease. Mildly atrophic appearing right kidney. 2. Cystic structures identified in the bilateral kidneys likely cysts with the largest measuring 2 cm in the right kidney. 3. 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 LORETO BROWN MD May 26, 2018 09:19
[2018-05-26] MEDS: AMINO AC 3%/ELECTROLYTE/GLYCER 1,000 ML IV SCH ×2 (09:57→21:45)
--- NOTE | 2018-05-26 09:57 | PDOC ---
SUBJECTIVE Subjective S: Doing okay, not eating though, didn't touch her breakfast, her friend is in the room, does not want bone marrow biopsy O: Physical exam: Gen.: An elderly female, thin, resting in bed Lungs: Breathing comfortably with no evidence of respiratory distress Psychiatric: Pleasant mood and affect though unable to remember much details of her history Labs: White count 3.1, hemoglobin 10.8, platelets 46, MCV of 92 Assessment and Plan: She is a 77-year-old female with recent UTI, left-sided parietal stroke, renal insufficiency acute on chronic and pancytopenia Pancytopenia: B12 has not yet been resulted but it is ordered, discussed bone marrow biopsy is certainly reasonable with her pancytopenia but she declines, I discussed with her daughter Karrie at [phone], she tells me her DURABLE POWER OF BIOINFORMATICS SCIENTIST is Senait her niece who Karrie is not in contact with, for now we'll await B12 studies and consider bone marrow biopsy if counts worsen if the patient or her power of attorney recruiter would want to Renal insufficiency: Improving from a creatinine of 3.5-1.3 Weakness: May be a possible rehabilitation candidate Recent stroke and other comorbidities: Deferred to primary Thank you kindly and please do not hesitate to call with questions. OBJECTIVE Vital Signs Vital Signs Date Time Temp Pulse Resp B/P (MAP) Pulse Ox O2 Delivery O2 Flow Rate FiO2 05/26/18 07:00 97.7 59 18 123/68 (86) 97 Room Air 97.7 05/26/18 03:00 98.0 89 18 121/70 (87) 96 Room Air 98.0 05/25/18 23:00 97.7 58 18 121/74 (90) 96 Room Air 97.7 05/25/18 20:00 Room Air 05/25/18 19:00 98.0 67 18 117/72 (87) 96 Room Air 98.0 05/25/18 15:00 97.7 62 18 129/74 (92) 100 Room Air 97.7 05/25/18 10:50 97.9 62 18 133/80 (97) 100 Room Air 97.9 I & O Intake and Output 05/26/18 07:00 Intake Total 900 ml Output Total 550 ml Balance 350 ml Intake Oral 900 ml Output Urine Total 550 ml # Voids 2 COMMENT Lab Laboratory Tests Test 05/26/18 04:50 05/26/18 05:00 White Blood Count 3.1 x10^3/uL (4.0-11.0) Red Blood Count 3.46 x10^6/uL (3.50-5.40) Hemoglobin 10.8 g/dL (12.0-15.5) Hematocrit 31.7 % (36.0-47.0) Mean Corpuscular Volume 92 fL (79-100) Mean Corpuscular Hemoglobin 31 pg (25-35) Mean Corpuscular Hemoglobin Concent 34 g/dL (31-37) Red Cell Distribution Width 16.1 % (11.5-14.5) Platelet Count 46 x10^3/uL (140-400) Neutrophils (%) (Auto) 59 % (31-73) Lymphocytes (%) (Auto) 30 % (24-48) Monocytes (%) (Auto) 7 % (0-9) Eosinophils (%) (Auto) 3 % (0-3) Basophils (%) (Auto) 1 % (0-3) Neutrophils # (Auto) 1.8 x10^3uL (1.8-7.7) Lymphocytes # (Auto) 0.9 x10^3/uL (1.0-4.8) Monocytes # (Auto) 0.2 x10^3/uL (0.0-1.1) Eosinophils # (Auto) 0.1 x10^3/uL (0.0-0.7) Basophils # (Auto) 0.0 x10^3/uL (0.0-0.2) Sodium Level 137 mmol/L (136-145) Potassium Level 3.8 mmol/L (3.5-5.1) Chloride Level 107 mmol/L (98-107) Carbon Dioxide Level 18 mmol/L (21-32) Anion Gap 12 (6-14) Blood Urea Nitrogen 14 mg/dL (7-20) Creatinine 1.3 mg/dL (0.6-1.0) Estimated GFR (Cockcroft-Gault) 39.5 BUN/Creatinine Ratio 11 (6-20) Glucose Level 65 mg/dL (70-99) Calcium Level 8.0 mg/dL (8.5-10.1) Magnesium Level 1.3 mg/dL (1.8-2.4) Total Bilirubin 0.4 mg/dL (0.2-1.0) Aspartate Amino Transf (AST/SGOT) 11 U/L (15-37) Alanine Aminotransferase (ALT/SGPT) < 6 U/L (14-59) Alkaline Phosphatase 41 U/L (46-116) Total Protein 4.9 g/dL (6.4-8.2) Albumin 2.1 g/dL (3.4-5.0) Albumin/Globulin Ratio 0.8 (1.0-1.7) Triglycerides Level 61 mg/dL (0-150) Cholesterol Level 63 mg/dL (0-200) LDL Cholesterol, Calculated 13 mg/dL (0-100) VLDL Cholesterol, Calculated 12 mg/dL (0-40) Non-HDL Cholesterol Calculated 25 mg/dL (0-129) HDL Cholesterol 38 mg/dL (40-60) Cholesterol/HDL Ratio 1.7 Prealbumin 11.9 mg/dL (16.0-42.0) Nutrition Consultation Dietary Evaluation: Recommendations by RD: Increase Calorie Intake Comments: nepro q day Expected Outcomes/Goals: to meet > 75% est nutr needs Interpretation of weight loss: >20% in 1 year Malnutrition Findings: Food and Nutrition Intake (Sev: <50% est energy req 5days Weight Status: Appropriate JALEEL SCHNEIDER MD May 26, 2018 09:57
[2018-05-26] MEDS: CITALOPRAM 20 MG TABLET. PO SCH (09:58)
[2018-05-26] MEDS: SODIUM BICARB ADULT 8.4% 50 MEQ/50 ML DISP.SYRIN. IV SCH ×2 (09:58→12:49)
[2018-05-26] MEDS: APIXABAN 5 MG TABLET. PO SCH ×2 (09:58→21:09)
[2018-05-26] MEDS: PANTOPRAZOLE 40 MG TABLET.DR. PO SCH (09:58)
[2018-05-26] MEDS: levETIRAcetam 500 MG TABLET PO SCH ×2 (09:59→21:08)
[2018-05-26] MEDS: amLODIPine BESYLATE 5 MG TABLET PO SCH (09:59)
[2018-05-26 10:49] VITALS: BP 128/65
--- NOTE | 2018-05-26 11:34 | PDOC ---
PROGRESS NOTES History of Present Illness History of Present Illness Assessment/Plan Assessment/Plan IMPRESSION Acute punctate infarct of the posterior left parietal lobe. loss of the normal signal void within the left vertebral artery. This could be due to occlusion. Acute renal failure, improving, hypovolemic/ vasomotor dementia Atrophic right kidney with multiple low attenuating lesions most likely simple cysts. Echogenic appearing bilateral kidneys likely due to medical renal disease. Mildly atrophic appearing right kidney. hyperlipidemia hypertension thrombocytopenia, follow, consult heme plan iv fluid support nephrology consult hold nephrotoxic drugs daily labs renal us sq heparin dvt prophylaxis hold [place] mri head reviewed cardiology consult re treatment of htn in setting of bradycardia with norvasc, as well as treatment with eliquis in setting of acute cva Vitals Vitals Vital Signs Date Time Temp Pulse Resp B/P (MAP) Pulse Ox O2 Delivery O2 Flow Rate FiO2 05/26/18 10:49 97.7 60 18 128/65 (86) 98 Room Air 97.7 Physical Exam Physical Exam Eyes: PERRLA, EOMI, Neck: Normal range of motion, no tenderness, supple, no stridor. [] Cardiovascular:Heart rate regular rhythm, no murmur [] Lungs & Thorax: Bilateral breath sounds clear to auscultation [] Abdomen: Bowel sounds normal, soft, no tenderness, no masses, no pulsatile masses. [] Skin: Warm, dry, no erythema, no rash. [] Back: No tenderness, no CVA tenderness. [] Extremities: No tenderness, no edema. [] Neurologic: no focal deficits noted. [] Psychologic: Affect normal, , mood normal. [] General: Cooperative HEENT: Atraumatic, PERRLA Abdomen: Normal bowel sounds, Soft General: Alert, Cooperative, No acute distress, Other Heart: Regular rate, Normal S1, Normal S2 Lungs: Clear Abdomen: Normal bowel sounds, Soft Extremities: No clubbing, No cyanosis, No edema Skin: No breakdown, No significant lesion, Other Labs LABS MRI study of the brain without contrast Clinical indications: Weakness and confusion. History of CVA. COMPARISON: Noncontrast head CT date dated May 24, [address] dated March 05, 2018. An MRI study of the brain dated May 25, 2017. TECHNIQUE: Noncontrast MRI sequences of the brain were performed. FINDINGS: There is a tiny focus of restricted diffusion within the posterior aspect of the left parietal lobe consistent with small acute infarct. No acute intracranial hemorrhage is evident. A large old cortical infarct of the posterior left temporal lobe and the posterior left parietal lobe is again evident. There is mild bilateral periventricular white matter hyperintensities consistent with chronic small vessel ischemic disease in this age group. This has not progressed significantly from the prior study. Left lateral ventricle is slightly larger in size in comparison to the previous study due to the old cortical infarct. Otherwise no hydrocephalus is seen. There is loss of the normal signal void within the left vertebral artery. This is a new finding. No intracranial midline shift or mass effect is evident. There is opacification of the right mastoid sinus which is a new finding. There is chronic mucosal thickening of the contrast within the right maxillary sinus.No cerebellar tonsillar ectopia is evident. No pituitary mass is evident. IMPRESSION: Acute punctate infarct of the posterior left parietal lobe. There is a new finding of loss of the normal signal void within the left vertebral artery. This could be due to occlusion. Note-this critical result was called to the patient's floor nurse at 6:13 PM on May 24, 2018. Large old cortical infarct of the left posterior parietal lobe and posterior left temporal lobe. Mild chronic small vessel ischemic disease of the periventricular white matter. Progressive opacification of the right mastoid sinus. Electronically signed by: Poncho Sinha MD (05/24/2018 6:17 PM) [facility] Laboratory Tests Test 05/26/18 04:50 05/26/18 05:00 White Blood Count 3.1 x10^3/uL (4.0-11.0) Red Blood Count 3.46 x10^6/uL (3.50-5.40) Hemoglobin 10.8 g/dL (12.0-15.5) Hematocrit 31.7 % (36.0-47.0) Mean Corpuscular Volume 92 fL (79-100) Mean Corpuscular Hemoglobin 31 pg (25-35) Mean Corpuscular Hemoglobin Concent 34 g/dL (31-37) Red Cell Distribution Width 16.1 % (11.5-14.5) Platelet Count 46 x10^3/uL (140-400) Neutrophils (%) (Auto) 59 % (31-73) Lymphocytes (%) (Auto) 30 % (24-48) Monocytes (%) (Auto) 7 % (0-9) Eosinophils (%) (Auto) 3 % (0-3) Basophils (%) (Auto) 1 % (0-3) Neutrophils # (Auto) 1.8 x10^3uL (1.8-7.7) Lymphocytes # (Auto) 0.9 x10^3/uL (1.0-4.8) Monocytes # (Auto) 0.2 x10^3/uL (0.0-1.1) Eosinophils # (Auto) 0.1 x10^3/uL (0.0-0.7) Basophils # (Auto) 0.0 x10^3/uL (0.0-0.2) Sodium Level 137 mmol/L (136-145) Potassium Level 3.8 mmol/L (3.5-5.1) Chloride Level 107 mmol/L (98-107) Carbon Dioxide Level 18 mmol/L (21-32) Anion Gap 12 (6-14) Blood Urea Nitrogen 14 mg/dL (7-20) Creatinine 1.3 mg/dL (0.6-1.0) Estimated GFR (Cockcroft-Gault) 39.5 BUN/Creatinine Ratio 11 (6-20) Glucose Level 65 mg/dL (70-99) Calcium Level 8.0 mg/dL (8.5-10.1) Magnesium Level 1.3 mg/dL (1.8-2.4) Total Bilirubin 0.4 mg/dL (0.2-1.0) Aspartate Amino Transf (AST/SGOT) 11 U/L (15-37) Alanine Aminotransferase (ALT/SGPT) < 6 U/L (14-59) Alkaline Phosphatase 41 U/L (46-116) Total Protein 4.9 g/dL (6.4-8.2) Albumin 2.1 g/dL (3.4-5.0) Albumin/Globulin Ratio 0.8 (1.0-1.7) Triglycerides Level 61 mg/dL (0-150) Cholesterol Level 63 mg/dL (0-200) LDL Cholesterol, Calculated 13 mg/dL (0-100) VLDL Cholesterol, Calculated 12 mg/dL (0-40) Non-HDL Cholesterol Calculated 25 mg/dL (0-129) HDL Cholesterol 38 mg/dL (40-60) Cholesterol/HDL Ratio 1.7 Prealbumin 11.9 mg/dL (16.0-42.0) Assessment and Plan Assessmemt and Plan Problems Medical Problems: (1) BRODIE (acute kidney injury) Status: Acute (2) Dehydration Status: Acute (3) Hyperkalemia Status: Acute Comment Review of Relevant I have reviewed the following items josee (where applicable) has been applied. Labs Laboratory Tests Test 05/25/18 05:00 05/25/18 07:05 05/26/18 04:50 05/26/18 05:00 Magnesium Level 1.3 mg/dL (1.8-2.4) 1.3 mg/dL (1.8-2.4) White Blood Count 3.8 x10^3/uL (4.0-11.0) 3.1 x10^3/uL (4.0-11.0) Red Blood Count 3.64 x10^6/uL (3.50-5.40) 3.46 x10^6/uL (3.50-5.40) Hemoglobin 11.6 g/dL (12.0-15.5) 10.8 g/dL (12.0-15.5) Hematocrit 33.7 % (36.0-47.0) 31.7 % (36.0-47.0) Mean Corpuscular Volume 93 fL (79-100) 92 fL (79-100) Mean Corpuscular Hemoglobin 32 pg (25-35) 31 pg (25-35) Mean Corpuscular Hemoglobin Concent 34 g/dL (31-37) 34 g/dL (31-37) Red Cell Distribution Width 16.4 % (11.5-14.5) 16.1 % (11.5-14.5) Platelet Count 43 x10^3/uL (140-400) 46 x10^3/uL (140-400) Neutrophils (%) (Auto) 70 % (31-73) 59 % (31-73) Lymphocytes (%) (Auto) 19 % (24-48) 30 % (24-48) Monocytes (%) (Auto) 8 % (0-9) 7 % (0-9) Eosinophils (%) (Auto) 2 % (0-3) 3 % (0-3) Basophils (%) (Auto) 1 % (0-3) 1 % (0-3) Neutrophils # (Auto) 2.7 x10^3uL (1.8-7.7) 1.8 x10^3uL (1.8-7.7) Lymphocytes # (Auto) 0.7 x10^3/uL (1.0-4.8) 0.9 x10^3/uL (1.0-4.8) Monocytes # (Auto) 0.3 x10^3/uL (0.0-1.1) 0.2 x10^3/uL (0.0-1.1) Eosinophils # (Auto) 0.1 x10^3/uL (0.0-0.7) 0.1 x10^3/uL (0.0-0.7) Basophils # (Auto) 0.0 x10^3/uL (0.0-0.2) 0.0 x10^3/uL (0.0-0.2) Sodium Level 137 mmol/L (136-145) 137 mmol/L (136-145) Potassium Level 4.0 mmol/L (3.5-5.1) 3.8 mmol/L (3.5-5.1) Chloride Level 106 mmol/L (98-107) 107 mmol/L (98-107) Carbon Dioxide Level 18 mmol/L (21-32) 18 mmol/L (21-32) Anion Gap 13 (6-14) 12 (6-14) Blood Urea Nitrogen 20 mg/dL (7-20) 14 mg/dL (7-20) Creatinine 1.5 mg/dL (0.6-1.0) 1.3 mg/dL (0.6-1.0) Estimated GFR (Cockcroft-Gault) 33.5 39.5 BUN/Creatinine Ratio 13 (6-20) 11 (6-20) Glucose Level 66 mg/dL (70-99) 65 mg/dL (70-99) Calcium Level 8.2 mg/dL (8.5-10.1) 8.0 mg/dL (8.5-10.1) Total Bilirubin 0.5 mg/dL (0.2-1.0) 0.4 mg/dL (0.2-1.0) Aspartate Amino Transf (AST/SGOT) 12 U/L (15-37) 11 U/L (15-37) Alanine Aminotransferase (ALT/SGPT) 9 U/L (14-59) < 6 U/L (14-59) Alkaline Phosphatase 48 U/L (46-116) 41 U/L (46-116) Total Protein 5.2 g/dL (6.4-8.2) 4.9 g/dL (6.4-8.2) Albumin 2.2 g/dL (3.4-5.0) 2.1 g/dL (3.4-5.0) Albumin/Globulin Ratio 0.7 (1.0-1.7) 0.8 (1.0-1.7) Triglycerides Level 61 mg/dL (0-150) Cholesterol Level 63 mg/dL (0-200) LDL Cholesterol, Calculated 13 mg/dL (0-100) VLDL Cholesterol, Calculated 12 mg/dL (0-40) Non-HDL Cholesterol Calculated 25 mg/dL (0-129) HDL Cholesterol 38 mg/dL (40-60) Cholesterol/HDL Ratio 1.7 Prealbumin 11.9 mg/dL (16.0-42.0) Laboratory Tests Test 05/26/18 04:50 05/26/18 05:00 White Blood Count 3.1 x10^3/uL (4.0-11.0) Red Blood Count 3.46 x10^6/uL (3.50-5.40) Hemoglobin 10.8 g/dL (12.0-15.5) Hematocrit 31.7 % (36.0-47.0) Mean Corpuscular Volume 92 fL (79-100) Mean Corpuscular Hemoglobin 31 pg (25-35) Mean Corpuscular Hemoglobin Concent 34 g/dL (31-37) Red Cell Distribution Width 16.1 % (11.5-14.5) Platelet Count 46 x10^3/uL (140-400) Neutrophils (%) (Auto) 59 % (31-73) Lymphocytes (%) (Auto) 30 % (24-48) Monocytes (%) (Auto) 7 % (0-9) Eosinophils (%) (Auto) 3 % (0-3) Basophils (%) (Auto) 1 % (0-3) Neutrophils # (Auto) 1.8 x10^3uL (1.8-7.7) Lymphocytes # (Auto) 0.9 x10^3/uL (1.0-4.8) Monocytes # (Auto) 0.2 x10^3/uL (0.0-1.1) Eosinophils # (Auto) 0.1 x10^3/uL (0.0-0.7) Basophils # (Auto) 0.0 x10^3/uL (0.0-0.2) Sodium Level 137 mmol/L (136-145) Potassium Level 3.8 mmol/L (3.5-5.1) Chloride Level 107 mmol/L (98-107) Carbon Dioxide Level 18 mmol/L (21-32) Anion Gap 12 (6-14) Blood Urea Nitrogen 14 mg/dL (7-20) Creatinine 1.3 mg/dL (0.6-1.0) Estimated GFR (Cockcroft-Gault) 39.5 BUN/Creatinine Ratio 11 (6-20) Glucose Level 65 mg/dL (70-99) Calcium Level 8.0 mg/dL (8.5-10.1) Magnesium Level 1.3 mg/dL (1.8-2.4) Total Bilirubin 0.4 mg/dL (0.2-1.0) Aspartate Amino Transf (AST/SGOT) 11 U/L (15-37) Alanine Aminotransferase (ALT/SGPT) < 6 U/L (14-59) Alkaline Phosphatase 41 U/L (46-116) Total Protein 4.9 g/dL (6.4-8.2) Albumin 2.1 g/dL (3.4-5.0) Albumin/Globulin Ratio 0.8 (1.0-1.7) Triglycerides Level 61 mg/dL (0-150) Cholesterol Level 63 mg/dL (0-200) LDL Cholesterol, Calculated 13 mg/dL (0-100) VLDL Cholesterol, Calculated 12 mg/dL (0-40) Non-HDL Cholesterol Calculated 25 mg/dL (0-129) HDL Cholesterol 38 mg/dL (40-60) Cholesterol/HDL Ratio 1.7 Prealbumin 11.9 mg/dL (16.0-42.0) Medications Current Medications Sodium Chloride 1,000 ml @ 1,000 mls/hr 1X ONCE IV Last administered on at 18:32; Start 05/22/18 at 18:30; Stop 05/22/18 at 19:29; Status DC Ondansetron HCl (Zofran) 8 mg 1X ONCE IV Last administered on 05/22/18at 18:31 ; Start 05/22/18 at 18:30; Stop 05/22/18 at 18:31; Status DC Magnesium Sulfate/ Dextrose 100 ml @ 100 mls/hr 1X ONCE IV Last administered on 05/22/18at 23:47; Start 05/22/18 at 23:30; Stop 05/23/18 at 00:29; Status DC Sodium Chloride 1,000 ml @ 50 mls/hr Q20H IV Last administered on 05/25/18at 20 :24; Start 05/22/18 at 23:30; Stop 05/26/18 at 09:14; Status DC Amlodipine Besylate (Norvasc) 5 mg DAILY PO Last administered on 05/26/18 09: 59; Start 05/23/18 at 09:00 Apixaban (Eliquis) 5 mg BID PO Last administered on 05/26/18 09:58; Start 05/23/18 at 09:00 Atorvastatin Calcium (Lipitor) 40 mg QHS PO Last administered on 05/25/18at 20: 23; Start 05/23/18 at 21:00 Levetiracetam (Keppra) 500 mg BID PO Last administered on 05/26/18 09:59; Start 05/23/18 at 09:00 Ondansetron HCl (Zofran Odt) 4 mg Q6HRS PO Last administered on 05/25/18 17:20 ; Start 05/23/18 at 00:00 Citalopram Hydrobromide (CeleXA) 20 mg DAILY PO Last administered on 05/26/18 09:58; Start 05/23/18 at 09:00 Pantoprazole Sodium (Protonix) 40 mg DAILYAC PO Last administered on 05/26/18 09:58; Start 05/23/18 at 07:30 Info (Anti-Coagulation Monitoring By Pharmacy) 1 each PRN DAILY PRN MC SEE COMMENTS Last administered on 05/25/18at 15:19; Start 05/25/18 at 15:15 Nicotine (Nicoderm Cq 14mg) 1 patch PRN DAILY PRN TD SMOKING CESSATION Last administered on 05/25/18at 17:20; Start 05/25/18 at 16:45 Magnesium Sulfate 50 ml @ 25 mls/hr PRN DAILY PRN IV for Mag < 1.7 on am labs; Start 05/26/18 at 09:15 Amino Acids/ Glycerin/ Electrolytes 1,000 ml @ 80 mls/hr [id number] IV Last administered on 05/26/18at 09:57; Start 05/26/18 at 09:15; Stop 05/27/18 at 10:14 Sodium Bicarbonate (Sodium Bicarb Adult 8.4% Syr) 50 meq Q2HR IV Last administered on 05/26/18at 09:58; Start 05/26/18 at 10:00; Stop 05/26/18 at 12:01 Active Scripts Active Reported Levetiracetam 500 Mg Tablet 1 Tab PO BID Eliquis (Apixaban) 5 Mg Tablet 5 Mg PO BID Lisinopril 20 Mg Tablet 1 Tab PO DAILY Escitalopram Oxalate 10 Mg Tablet 1 Tab PO DAILY Amlodipine Besylate 5 Mg Tablet 5 Mg PO DAILY Ciprofloxacin Hcl 250 Mg Tablet 1 Tab PO BID Omeprazole 40 Mg Capsule.dr 40 Mg PO DAILY Zofran Odt (Ondansetron) 4 Mg Tab.rapdis 1 Tab SL Q6HRS Vitals/I & O Vital Sign - Last 24 Hours 05/25/18 05/25/18 05/25/18 05/25/18 15:00 19:00 20:00 23:00 Temp 97.7 98.0 97.7 97.7 98.0 97.7 Pulse 62 67 58 Resp 18 18 18 B/P (MAP) 129/74 (92) 117/72 (87) 121/74 (90) Pulse Ox 100 96 96 O2 Delivery Room Air Room Air Room Air Room Air 05/26/18 05/26/18 05/26/18 05/26/18 03:00 07:00 08:00 09:59 Temp 98.0 97.7 98.0 97.7 Pulse 89 59 59 Resp 18 18 B/P (MAP) 121/70 (87) 123/68 (86) 123/68 Pulse Ox 96 97 O2 Delivery Room Air Room Air Room Air 05/26/18 10:49 Temp 97.7 97.7 Pulse 60 Resp 18 B/P (MAP) 128/65 (86) Pulse Ox 98 O2 Delivery Room Air Intake and Output 05/25/18 05/25/18 05/26/18 15:00 23:00 07:00 Intake Total 600 ml 300 ml 0 ml Output Total 250 ml 300 ml Balance 600 ml 50 ml -300 ml Nutrition Consultation Dietary Evaluation: Recommendations by RD: Increase Calorie Intake Comments: continue with renal diet Expected Outcomes/Goals: to meet > 75% est nutr needs- met with po intake ~ 60% of meals, met at times, goal ongoing Interpretation of weight loss: >20% in 1 year Malnutrition Findings: Food and Nutrition Intake (Sev: <50% est energy req 5days Weight Status: Appropriate VAUGHN MARK MD May 26, 2018 11:34
--- NOTE | 2018-05-26 11:36 | CARD ---
MR#: [id number] Date of Study: 05/26/2018 Ordering Physician: VAUGHN MARK, Referring Physician: BRITTANY OLMSTEAD, Tech: Peace Zambrano APPROVED REPORT EXAM: Two-dimensional and M-mode echocardiogram with Doppler and color Doppler. Other Information Quality : AverageHR: 56bpm Rhythm : NSRTechnically limited study due to body habitus. INDICATION CVD RISK FACTORS Diabetes 2D DIMENSIONS RVDd1.9 (2.9-3.5cm)Left Atrium(2D)2.4 (1.6-4.0cm) IVSd1.0 (0.7-1.1cm)Aortic Root(2D)3.0 (2.0-3.7cm) LVDd3.2 (3.9-5.9cm)LVOT Diameter2.1 (1.8-2.4cm) PWd1.0 (0.7-1.1cm)LVDs2.0 (2.5-4.0cm) FS (%) 38.6 %SV29.7 ml LVEF(%)70.2 (>50%) Aortic Valve AoV Peak Zacarias.104.0cm/sAoV VTI22.7cm AO Peak GR.4.3mmHgLVOT Peak Zacarias.77.6cm/s LVOT VTI 19.83cmAO Mean GR.2mmHg PARISH (VMAX)2.99oq3HWQ (VTI)3.14cm2 Mitral Valve MV E Fbvlkfqu28.9cm/sMV DECEL WRRP095or MV A Wtonkhfn59.9cm/sMV JQC87rm E/A Ratio0.8MVA (PHT)2.36cm2 TDI E/Lateral E'7.9E/Medial E'9.0 Pulmonary Valve PV Peak Utxfufwk08.9cm/sPV Peak Grad.3mmHg Tricuspid Valve TR P. Hfujxmah150eb/sRAP SWNBXTPM1xdEm TR Peak Gr.75ueUtASYD55olKj Pulmonary Vein S1 Ssvgfhds26.4cm/sD2 Sesyunki60.9cm/s PVa olsnjakq170olnf LEFT VENTRICLE The left ventricle is normal size. There is borderline concentric left ventricular hypertrophy. The l eft ventricular systolic function is normal and the ejection fraction is within normal range. The Eje ction Fraction is 60-65%. Grossly normal wall motion. Transmitral Doppler flow pattern is Grade I-abn ormal relaxation pattern. RIGHT VENTRICLE The right ventricle is normal size. There is normal right ventricular wall thickness. The right ventr icular systolic function is normal. ATRIA The left atrium size is normal. The right atrium size is normal. The interatrial septum is intact wit h no evidence for an atrial septal defect or patent foramen ovale as noted on 2-D or Doppler imaging. AORTIC VALVE The aortic valve is thickened but opens well. Doppler and Color Flow revealed trace aortic regurgitat ion. There is no significant aortic valvular stenosis. MITRAL VALVE The mitral valve is normal in structure and function. There is no mitral valve stenosis. Doppler and Color-flow revealed trace mitral regurgitation. TRICUSPID VALVE The tricuspid valve is not well visualized. Doppler and Color Flow revealed trace tricuspid regurgita tion. There is no tricuspid valve stenosis. PULMONIC VALVE The pulmonic valve is not well visualized. Doppler and Color Flow revealed no pulmonic valvular regur gitation. There is no pulmonic valvular stenosis. GREAT VESSELS The aortic root is normal in size. Normal pulmonary venous flow (Doppler). The IVC is normal in size and collapses >50% with inspiration. PERICARDIAL EFFUSION There is no evidence of significant pericardial effusion. Critical Notification Critical Value: No <Conclusion> The left ventricular systolic function is normal and the ejection fraction is within normal range. Th e Ejection Fraction is 60-65%. Grossly normal wall motion. No significant valvular disease. Signed by : Nicola Renee, Electronically Approved : 05/26/2018 11:34:53
--- NOTE | 2018-05-26 12:30 | PDOC2 ---
CARDIAC CONSULT DATE OF CONSULT Date of Consult DATE: 05/26/18 TIME: 12:16 REASON FOR CONSULT Reason for Consult: CVA REFERRING PHYSICIAN Referring Physician: Fullbright SOURCE Source: Chart review, Patient HISTORY OF PRESENT ILLNESS HISTORY OF PRESENT ILLNESS This is a 77 yo female admitted for complains incresing confusion and weakness. She is a poor historian and has no recollection to why she is in the hospital. Per chart review her mental state and functional abilities have been declining. No mention of any chest pain or SOA. No notable falls or injury. She is closely supervised by her family at home. PAST MEDICAL HISTORY Cardiovascular: AFIB (paroxysmal), CAD, HTN, Hyperlipidemia CENTRAL NERVOUS SYSTEM: CVA (with expressive aphasia), Seizure GI: GERD Hepatobiliary: Cholelithiasis Psych: Anxiety Musculoskeletal: Osteoarthritis Renal/: Chronic renal insuff, UTI PAST SURGICAL HISTORY Past Surgical History: Arthroscopy (left ankle), Cholecystectomy, Cataract Removal, Total hip replacement, Colon Resection, Other (PCI/stents) SOCIAL HISTORY Smoke: <1 pack per day ALCOHOL: none Drugs: None CURRENT MEDICATIONS CURRENT MEDICATIONS Current Medications Medications (Trade) Dose Ordered Sig/Dulce Route PRN Reason Start Time Stop Time Status Last Admin Dose Admin Info (Anti-Coagulation Monitoring By Pharmacy) 1 each PRN DAILY PRN MC SEE COMMENTS 05/25/18 15:15 05/25/18 15:19 Nicotine (Nicoderm Cq 14mg) 1 patch PRN DAILY PRN TD SMOKING CESSATION 05/25/18 16:45 05/25/18 17:20 Amino Acids/ Glycerin/ Electrolytes 1,000 ml @ 80 mls/hr [id number] IV 05/26/18 09:15 05/27/18 10:14 05/26/18 09:57 Sodium Bicarbonate (Sodium Bicarb Adult 8.4% Syr) 50 meq Q2HR IV 05/26/18 10:00 05/26/18 12:01 DC 05/26/18 09:58 ALLERGIES ALLERGIES: Coded Allergies: pneumococcal vaccine (Verified Allergy, Unknown, Swelling, 05/22/18) family reports blackish-purple down entire arm of injection morphine (Verified Adverse Reaction, Severe, nausea/abdominal pain, 12/24/14 ) ROS Review of System limited, poor recall PHYSICAL EXAM General: Alert, Oriented X3, Cooperative, No acute distress HEENT: Atraumatic, Mucous membr. moist/pink Lungs: Clear to auscultation, Normal air movement Heart: Regular rate (SR), Normal S1, Normal S2, No murmurs Abdomen: Soft, No tenderness Extremities: No cyanosis, No edema Skin: No breakdown, No significant lesion Neuro: Normal speech, Sensation intact Psych/Mental Status: Mental status NL, Mood NL MUSCULOSKELETAL: Osteoarthritic changes both hands VITALS VITALS Vital Signs Date Time Temp Pulse Resp B/P (MAP) Pulse Ox O2 Delivery O2 Flow Rate FiO2 05/26/18 10:49 97.7 60 18 128/65 (86) 98 Room Air 97.7 LABS Lab: Laboratory Tests Test 05/26/18 04:50 05/26/18 05:00 White Blood Count 3.1 x10^3/uL (4.0-11.0) Red Blood Count 3.46 x10^6/uL (3.50-5.40) Hemoglobin 10.8 g/dL (12.0-15.5) Hematocrit 31.7 % (36.0-47.0) Mean Corpuscular Volume 92 fL (79-100) Mean Corpuscular Hemoglobin 31 pg (25-35) Mean Corpuscular Hemoglobin Concent 34 g/dL (31-37) Red Cell Distribution Width 16.1 % (11.5-14.5) Platelet Count 46 x10^3/uL (140-400) Neutrophils (%) (Auto) 59 % (31-73) Lymphocytes (%) (Auto) 30 % (24-48) Monocytes (%) (Auto) 7 % (0-9) Eosinophils (%) (Auto) 3 % (0-3) Basophils (%) (Auto) 1 % (0-3) Neutrophils # (Auto) 1.8 x10^3uL (1.8-7.7) Lymphocytes # (Auto) 0.9 x10^3/uL (1.0-4.8) Monocytes # (Auto) 0.2 x10^3/uL (0.0-1.1) Eosinophils # (Auto) 0.1 x10^3/uL (0.0-0.7) Basophils # (Auto) 0.0 x10^3/uL (0.0-0.2) Sodium Level 137 mmol/L (136-145) Potassium Level 3.8 mmol/L (3.5-5.1) Chloride Level 107 mmol/L (98-107) Carbon Dioxide Level 18 mmol/L (21-32) Anion Gap 12 (6-14) Blood Urea Nitrogen 14 mg/dL (7-20) Creatinine 1.3 mg/dL (0.6-1.0) Estimated GFR (Cockcroft-Gault) 39.5 BUN/Creatinine Ratio 11 (6-20) Glucose Level 65 mg/dL (70-99) Calcium Level 8.0 mg/dL (8.5-10.1) Magnesium Level 1.3 mg/dL (1.8-2.4) Total Bilirubin 0.4 mg/dL (0.2-1.0) Aspartate Amino Transf (AST/SGOT) 11 U/L (15-37) Alanine Aminotransferase (ALT/SGPT) < 6 U/L (14-59) Alkaline Phosphatase 41 U/L (46-116) Total Protein 4.9 g/dL (6.4-8.2) Albumin 2.1 g/dL (3.4-5.0) Albumin/Globulin Ratio 0.8 (1.0-1.7) Triglycerides Level 61 mg/dL (0-150) Cholesterol Level 63 mg/dL (0-200) LDL Cholesterol, Calculated 13 mg/dL (0-100) VLDL Cholesterol, Calculated 12 mg/dL (0-40) Non-HDL Cholesterol Calculated 25 mg/dL (0-129) HDL Cholesterol 38 mg/dL (40-60) Cholesterol/HDL Ratio 1.7 Prealbumin 11.9 mg/dL (16.0-42.0) ECHOCARDIOGRAM ECHOCARDIOGRAM <Conclusion> The left ventricular systolic function is normal and the ejection fraction is within normal range. The Ejection Fraction is 60-65%. Grossly normal wall motion. No significant valvular disease. DATE: 05/26/18 1134 ASSESSMENT/PLAN ASSESSMENT/PLAN 1. CVA syndrome/Left vertebral occlusion?: possible new CVA per MRI. neurology following 2. Hx of CVA/seizure and expressive aphasia 3. BRODIE on CKD3: improved. nephrology following 4. Pancytopenia with PLT in the 40s: hematology following 5. PAFIB: noted with brief paroxysms as an inpt with episodes of HR in the upper 40s. 6. CAD: past PCI/stent, clinically stable. EF and WM nml 7. HTN: controlled 8. HLP: LDL at 13 9. Hypomagnesemia 10. Vascular dementia? Recommendations 1. Potential cardioembolic CVA. Presently PLT in the 40s with uncertain etiology. Will place on low dose eliquis for now unless contraindicated by hematology. 2. Replace Mg. No noted rate controlling agents per home meds. AFIB paroxysms with lyte abnormalities contributing. Monitor rhythm trend after lyte correction and if no further bradycardia episodes then may consider low dose metoprolol. 3. Check TSH. Will hold lipitor 40 mg for now with LDL at 13 with noted CVA. Will resume at a lower dose. 4. Supportive care. MARIALUISA BECERRA ECHO TECHNOLOGIST May 26, 2018 12:30
[2018-05-26] MEDS ORDERED: METOPROLOL TARTRATE 5 MG/5 ML VIAL. IVP PRN (12:45)
[2018-05-26] MEDS ORDERED: MAGNESIUM SULFATE 3 GM in IV DEXTROSE 5% 100ML 100 ML IV ONE (14:15)
[2018-05-26 15:00] VITALS: BP 120/69
--- NOTE | 2018-05-26 17:24 | PDOC ---
PROGRESS NOTES Assessment Assessment IMPRESSION: Small acute/subacute left parietal infarct. Speech problem. Metabolic encephalopathy. AFib. HTN. HLD. AKD. Hypothyroidism. Dementia features. Recent large left posterior parietal lobe infarct. RECOMMENDATIONS/PLAN: She has been treated with Eliquis. 2.5 mg bid. She has been on Keppra 500 mg bid. Treat medical diseases. OT/PT. Discussed with her granddaughter at bedside. Past Medical History A-Fib, CVA, Depression, GERD, High Cholesterol, Hypertension, Seizure, THROMBOCYTOPENIA Cardiovascular: CAD, HTN GI: GERD Hepatobiliary: No pertinent hx Musculoskeletal: Osteoarthritis, Other Renal/: Chronic renal failure Past Surgical History Appendectomy, Cholecystectomy, Cataract Removal, , Total hip replacement, Other Family History Hypertension Social History Smoke: No ALCOHOL: none Drugs: None Allergies Coded Allergies: pneumococcal vaccine (Verified Allergy, Unknown, Swelling, 05/22/18) family reports blackish-purple down entire arm of injection morphine (Verified Adverse Reaction, Severe, nausea/abdominal pain, 12/24/14) MEDICATIONS: Refer to [facility] REVIEW OF SYSTEMS: Constitutional: No malnutrition, weight loss, cachexia. Head: No traumatic brain or head injury. Skin: No edema, or rash. Ear: No infection. Eyes: No vision loss, or diplopia. Nose: No bleeding or purulent discharges. Hearing: Hearing loss. Neck: No injury. Breast: No history of cancer, masses, or discharges. Cardiac: CAD, AFib, HTN, HLD Pulmonary: No COPD. GI: No GI Ulcer, GI bleeding Urinary/genital: UTI. Endocrine: No cousin face, craniofacial dysmorphism, polydactyly. Skeletomuscular: No muscular atrophy, deformity. Neurological: see HP. Psychiatric: Denies drug use/abuse. Otherwise, not [id number] review of systems. PHYSICAL EXAMINATION: General appearance in subacute distress. HEENT: Normocephalic and nontraumatic. Eyes, nose, ears, and throat are unremarkable. Hearing decrease. Neck is supple. No lymphadenopathy. No bruits are heard over the carotid artery. No Crepitus. Cardiovascular: S1, S2, regular rate and rhythm. Pulmonary: Clear to auscultation bilaterally. Abdomen: Bowel sounds are positive. Extremities: No rash, lesions, or edema. No restriction of range of motion NEUROLOGICAL EXAMINATION: Awake. Not oriented to time, place but knew person. PERRL. EOMI. CN: no focal findings. Muscle tone: within normal. Muscle strength: 4 DTR: 2- Plantar reflex: Neutral response bilaterally Gait: not examined in bed. Sensory exam: no acute abnormal findings. No cerebellar signs elicited. F-T-N test fine. Objective Objective Vital Signs Date Time Temp Pulse Resp B/P (MAP) Pulse Ox O2 Delivery O2 Flow Rate FiO2 05/26/18 15:00 97.7 74 18 120/69 (86) 99 Room Air 97.7 Intake and Output 05/26/18 07:00 Intake Total 900 ml Output Total 550 ml Balance 350 ml Intake Oral 900 ml Output Urine Total 550 ml # Voids 2 Vitals Signs Vitals VS - Last 72 Hours, by Label Date Time Temp Pulse Resp B/P (MAP) Pulse Ox O2 Delivery O2 Flow Rate FiO2 05/26/18 15:00 97.7 74 18 120/69 (86) 99 Room Air 97.7 05/26/18 10:49 97.7 60 18 128/65 (86) 98 Room Air 97.7 05/26/18 09:59 59 123/68 05/26/18 08:00 Room Air 05/26/18 07:00 97.7 59 18 123/68 (86) 97 Room Air 97.7 05/26/18 03:00 98.0 89 18 121/70 (87) 96 Room Air 98.0 05/25/18 23:00 97.7 58 18 121/74 (90) 96 Room Air 97.7 05/25/18 20:00 Room Air 05/25/18 19:00 98.0 67 18 117/72 (87) 96 Room Air 98.0 05/25/18 15:00 97.7 62 18 129/74 (92) 100 Room Air 97.7 05/25/18 10:50 97.9 62 18 133/80 (97) 100 Room Air 97.9 05/25/18 09:07 58 131/74 05/25/18 08:00 Room Air 05/25/18 07:00 97.9 58 18 131/74 (93) 99 Room Air 97.9 Laboratory Laboratory Laboratory Tests Test 05/26/18 04:50 05/26/18 05:00 White Blood Count 3.1 x10^3/uL (4.0-11.0) Red Blood Count 3.46 x10^6/uL (3.50-5.40) Hemoglobin 10.8 g/dL (12.0-15.5) Hematocrit 31.7 % (36.0-47.0) Mean Corpuscular Volume 92 fL (79-100) Mean Corpuscular Hemoglobin 31 pg (25-35) Mean Corpuscular Hemoglobin Concent 34 g/dL (31-37) Red Cell Distribution Width 16.1 % (11.5-14.5) Platelet Count 46 x10^3/uL (140-400) Neutrophils (%) (Auto) 59 % (31-73) Lymphocytes (%) (Auto) 30 % (24-48) Monocytes (%) (Auto) 7 % (0-9) Eosinophils (%) (Auto) 3 % (0-3) Basophils (%) (Auto) 1 % (0-3) Neutrophils # (Auto) 1.8 x10^3uL (1.8-7.7) Lymphocytes # (Auto) 0.9 x10^3/uL (1.0-4.8) Monocytes # (Auto) 0.2 x10^3/uL (0.0-1.1) Eosinophils # (Auto) 0.1 x10^3/uL (0.0-0.7) Basophils # (Auto) 0.0 x10^3/uL (0.0-0.2) Sodium Level 137 mmol/L (136-145) Potassium Level 3.8 mmol/L (3.5-5.1) Chloride Level 107 mmol/L (98-107) Carbon Dioxide Level 18 mmol/L (21-32) Anion Gap 12 (6-14) Blood Urea Nitrogen 14 mg/dL (7-20) Creatinine 1.3 mg/dL (0.6-1.0) Estimated GFR (Cockcroft-Gault) 39.5 BUN/Creatinine Ratio 11 (6-20) Glucose Level 65 mg/dL (70-99) Calcium Level 8.0 mg/dL (8.5-10.1) Magnesium Level 1.3 mg/dL (1.8-2.4) Total Bilirubin 0.4 mg/dL (0.2-1.0) Aspartate Amino Transf (AST/SGOT) 11 U/L (15-37) Alanine Aminotransferase (ALT/SGPT) < 6 U/L (14-59) Alkaline Phosphatase 41 U/L (46-116) Total Protein 4.9 g/dL (6.4-8.2) Albumin 2.1 g/dL (3.4-5.0) Albumin/Globulin Ratio 0.8 (1.0-1.7) Triglycerides Level 61 mg/dL (0-150) Cholesterol Level 63 mg/dL (0-200) LDL Cholesterol, Calculated 13 mg/dL (0-100) VLDL Cholesterol, Calculated 12 mg/dL (0-40) Non-HDL Cholesterol Calculated 25 mg/dL (0-129) HDL Cholesterol 38 mg/dL (40-60) Cholesterol/HDL Ratio 1.7 Thyroid Stimulating Hormone (TSH) 7.375 uIU/mL (0.358-3.74) Prealbumin 11.9 mg/dL (16.0-42.0) Medication Medications Current Medications Amino Acids/ Glycerin/ Electrolytes 1,000 ml @ 80 mls/hr [id number] IV Last administered on 05/26/18at 09:57; Start 05/26/18 at 09:15; Stop 05/27/18 at 10:14 Apixaban (Eliquis) 2.5 mg BID PO ; Start 05/26/18 at 21:00 Magnesium Sulfate 50 ml @ 25 mls/hr PRN DAILY PRN IV for Mag < 1.7 on am labs Last administered on 05/26/18at 12:49; Start 05/26/18 at 09:15 Magnesium Sulfate 3 gm/Dextrose 106 ml @ 35.333 mls/ hr 1X ONCE IV ; Start at 14:15; Stop 05/26/18 at 14:18; Status DC Metoprolol Tartrate (Lopressor Vial) 5 mg PRN Q6HRS PRN IVP HYPERTENSION, SEE COMMENTS; Start 05/26/18 at 12:45 Sodium Bicarbonate (Sodium Bicarb Adult 8.4% Syr) 50 meq Q2HR IV Last administered on 05/26/18at 12:49; Start 05/26/18 at 10:00; Stop 05/26/18 at 12:01 ; Status DC Comment Review of Relevant I have reviewed the following items josee (where applicable) has been applied. GARRETT BUTLER MD May 26, 2018 17:24
[2018-05-26 19:00] VITALS: BP 133/81
[2018-05-26 23:00] VITALS: BP 142/63
[2018-05-27] MEDS: ONDANSETRON ODT 4 MG TAB.RAPDIS. PO SCH ×3 (00:28→11:13)
[2018-05-27] MEDS: AMINO AC 3%/ELECTROLYTE/GLYCER 1,000 ML IV SCH (02:19)
[2018-05-27 03:00] VITALS: BP 146/84
[2018-05-27 03:26] LABS: BASO % 1 % (0-3); EOS # 0.1 x10^3/uL (0.0-0.7); EOS % 3 % (0-3); HEMATOCRIT 31.7 % (36.0-47.0); LYMPH # 0.9 x10^3/uL (1.0-4.8); LYMPH % 27 % (24-48); MEAN CORPUSCULAR HEMOGLOBIN 31 pg (25-35); MEAN CORPUSCULAR HGB CONC 35 g/dL (31-37); MEAN CORPUSCULAR VOLUME 91 fL (79-100); MONO # 0.3 x10^3/uL (0.0-1.1); MONO % 8 % (0-9); NEUT # 2.1 x10^3uL (1.8-7.7); NEUT % 61 % (31-73); PLATELET COUNT 39 x10^3/uL (140-400); RED BLOOD COUNT 3.49 x10^6/uL (3.50-5.40); RED CELL DISTRIBUTION WIDTH 16.1 % (11.5-14.5)
[2018-05-27 03:48] LABS: ALBUMIN 1.9 g/dL (3.4-5.0); ALBUMIN/GLOBULIN RATIO 0.6 (1.0-1.7); CREATININE 1.1 mg/dL (0.6-1.0); GFR 47.9; MAGNESIUM 1.8 mg/dL (1.8-2.4); POTASSIUM 3.7 mmol/L (3.5-5.1); TOTAL BILIRUBIN 0.4 mg/dL (0.2-1.0)
[2018-05-27 07:00] VITALS: BP 144/83
--- NOTE | 2018-05-27 07:52 | PDOC ---
SUBJECTIVE Subjective S: Doing okay, wanting to go home O: Physical exam: Gen.: elderly female, thin, resting in bed Lungs: Breathing comfortably with no evidence of respiratory distress Psychiatric: Pleasant mood and affect Labs: White count 3.5, hemoglobin 11, platelets 39, MCV of 91 Assessment and Plan: She is a 77-year-old female with recent UTI, left-sided parietal stroke, renal insufficiency acute on chronic and pancytopenia w/ h/o a fib Pancytopenia: B12 normal, again she declines bone marrow biopsy but would be open to pall care if having signif sx in the future, for now she wants to go home Renal insufficiency: Improving Recent stroke w/ a fib: anticoagulation is recommended, w/ age and wt would not give >2.5 mg po bid of the eliquis, though would hold w/ plt count <50,000 TSH elevated: defer to primary dispo: she wants to go home today, can follow up w/ us at any time should she desire further w/u for low blood counts (BMBx), for now she would like to focus on comfort vs further dx'ic w/u or tx Thank you kindly and please do not hesitate to call with any further questions. OBJECTIVE Vital Signs Vital Signs Date Time Temp Pulse Resp B/P (MAP) Pulse Ox O2 Delivery O2 Flow Rate FiO2 05/27/18 03:00 98.3 92 18 146/84 (104) 94 Room Air 98.3 05/26/18 23:00 98.1 69 18 142/63 (89) 94 Room Air 98.1 05/26/18 20:24 Room Air 05/26/18 19:00 98.3 73 18 133/81 (98) 94 Room Air 98.3 05/26/18 15:00 97.7 74 18 120/69 (86) 99 Room Air 97.7 05/26/18 10:49 97.7 60 18 128/65 (86) 98 Room Air 97.7 05/26/18 09:59 59 123/68 05/26/18 08:00 Room Air I & O Intake and Output 05/27/18 07:00 Intake Total 2140 ml Output Total 200 ml Balance 1940 ml Intake Oral 1140 ml IV Total 1000 ml Output Urine Total 200 ml # Voids 2 COMMENT Lab Laboratory Tests Test 05/27/18 03:00 White Blood Count 3.5 x10^3/uL (4.0-11.0) Red Blood Count 3.49 x10^6/uL (3.50-5.40) Hemoglobin 11.0 g/dL (12.0-15.5) Hematocrit 31.7 % (36.0-47.0) Mean Corpuscular Volume 91 fL (79-100) Mean Corpuscular Hemoglobin 31 pg (25-35) Mean Corpuscular Hemoglobin Concent 35 g/dL (31-37) Red Cell Distribution Width 16.1 % (11.5-14.5) Platelet Count 39 x10^3/uL (140-400) Neutrophils (%) (Auto) 61 % (31-73) Lymphocytes (%) (Auto) 27 % (24-48) Monocytes (%) (Auto) 8 % (0-9) Eosinophils (%) (Auto) 3 % (0-3) Basophils (%) (Auto) 1 % (0-3) Neutrophils # (Auto) 2.1 x10^3uL (1.8-7.7) Lymphocytes # (Auto) 0.9 x10^3/uL (1.0-4.8) Monocytes # (Auto) 0.3 x10^3/uL (0.0-1.1) Eosinophils # (Auto) 0.1 x10^3/uL (0.0-0.7) Basophils # (Auto) 0.0 x10^3/uL (0.0-0.2) Sodium Level 135 mmol/L (136-145) Potassium Level 3.7 mmol/L (3.5-5.1) Chloride Level 102 mmol/L (98-107) Carbon Dioxide Level 26 mmol/L (21-32) Anion Gap 7 (6-14) Blood Urea Nitrogen 17 mg/dL (7-20) Creatinine 1.1 mg/dL (0.6-1.0) Estimated GFR (Cockcroft-Gault) 47.9 BUN/Creatinine Ratio 15 (6-20) Glucose Level 104 mg/dL (70-99) Calcium Level 8.0 mg/dL (8.5-10.1) Magnesium Level 1.8 mg/dL (1.8-2.4) Total Bilirubin 0.4 mg/dL (0.2-1.0) Aspartate Amino Transf (AST/SGOT) 11 U/L (15-37) Alanine Aminotransferase (ALT/SGPT) 8 U/L (14-59) Alkaline Phosphatase 48 U/L (46-116) Total Protein 5.0 g/dL (6.4-8.2) Albumin 1.9 g/dL (3.4-5.0) Albumin/Globulin Ratio 0.6 (1.0-1.7) Nutrition Consultation Dietary Evaluation: Recommendations by RD: Increase Calorie Intake Comments: continue with renal diet Expected Outcomes/Goals: to meet > 75% est nutr needs- met with po intake ~ 60% of meals, met at times, goal ongoing Interpretation of weight loss: >20% in 1 year Malnutrition Findings: Food and Nutrition Intake (Sev: <50% est energy req 5days Weight Status: Appropriate JALEEL SCHNEIDER MD May 27, 2018 07:52
[2018-05-27] MEDS: amLODIPine BESYLATE 5 MG TABLET PO SCH (08:16)
[2018-05-27] MEDS: PANTOPRAZOLE 40 MG TABLET.DR. PO SCH (08:16)
[2018-05-27] MEDS: APIXABAN 5 MG TABLET. PO SCH (08:16)
[2018-05-27] MEDS: CITALOPRAM 20 MG TABLET. PO SCH (08:16)
[2018-05-27] MEDS: levETIRAcetam 500 MG TABLET PO SCH (08:16)
--- NOTE | 2018-05-27 09:19 | PDOC ---
PROGRESS NOTES History of Present Illness History of Present Illness Assessment/Plan Assessment/Plan IMPRESSION Acute punctate infarct of the posterior left parietal lobe. loss of the normal signal void within the left vertebral artery. This could be due to occlusion. Acute renal failure, improving, hypovolemic/ vasomotor dementia Atrophic right kidney with multiple low attenuating lesions most likely simple cysts. Echogenic appearing bilateral kidneys likely due to medical renal disease. Mildly atrophic appearing right kidney. hyperlipidemia hypertension thrombocytopenia, follow, consult heme plan iv fluid support nephrology consult hold nephrotoxic drugs daily labs renal us sq heparin dvt prophylaxis hold [place] mri head reviewed insists on discharge today with [facility] cardiology consult re treatment of htn in setting of bradycardia with norvasc, as well as treatment with eliquis in setting of acute cva Vitals Vitals Vital Signs Date Time Temp Pulse Resp B/P (MAP) Pulse Ox O2 Delivery O2 Flow Rate FiO2 05/27/18 08:16 67 144/83 05/27/18 07:00 97.8 18 98 Room Air 97.8 Physical Exam Physical Exam Eyes: PERRLA, EOMI, Neck: Normal range of motion, no tenderness, supple, no stridor. [] Cardiovascular:Heart rate regular rhythm, no murmur [] Lungs & Thorax: Bilateral breath sounds clear to auscultation [] Abdomen: Bowel sounds normal, soft, no tenderness, no masses, no pulsatile masses. [] Skin: Warm, dry, no erythema, no rash. [] Back: No tenderness, no CVA tenderness. [] Extremities: No tenderness, no edema. [] Neurologic: no focal deficits noted. [] Psychologic: Affect normal, , mood normal. [] General: Cooperative HEENT: Atraumatic, PERRLA Abdomen: Normal bowel sounds, Soft General: Alert, Oriented X3, Cooperative, No acute distress, mild distress Heart: Regular rate, Normal S1, Normal S2 Lungs: Clear Abdomen: Soft, No tenderness Extremities: No clubbing, No cyanosis, No edema Skin: No breakdown, No significant lesion Labs LABS Laboratory Tests Test 05/27/18 03:00 White Blood Count 3.5 x10^3/uL (4.0-11.0) Red Blood Count 3.49 x10^6/uL (3.50-5.40) Hemoglobin 11.0 g/dL (12.0-15.5) Hematocrit 31.7 % (36.0-47.0) Mean Corpuscular Volume 91 fL (79-100) Mean Corpuscular Hemoglobin 31 pg (25-35) Mean Corpuscular Hemoglobin Concent 35 g/dL (31-37) Red Cell Distribution Width 16.1 % (11.5-14.5) Platelet Count 39 x10^3/uL (140-400) Neutrophils (%) (Auto) 61 % (31-73) Lymphocytes (%) (Auto) 27 % (24-48) Monocytes (%) (Auto) 8 % (0-9) Eosinophils (%) (Auto) 3 % (0-3) Basophils (%) (Auto) 1 % (0-3) Neutrophils # (Auto) 2.1 x10^3uL (1.8-7.7) Lymphocytes # (Auto) 0.9 x10^3/uL (1.0-4.8) Monocytes # (Auto) 0.3 x10^3/uL (0.0-1.1) Eosinophils # (Auto) 0.1 x10^3/uL (0.0-0.7) Basophils # (Auto) 0.0 x10^3/uL (0.0-0.2) Sodium Level 135 mmol/L (136-145) Potassium Level 3.7 mmol/L (3.5-5.1) Chloride Level 102 mmol/L (98-107) Carbon Dioxide Level 26 mmol/L (21-32) Anion Gap 7 (6-14) Blood Urea Nitrogen 17 mg/dL (7-20) Creatinine 1.1 mg/dL (0.6-1.0) Estimated GFR (Cockcroft-Gault) 47.9 BUN/Creatinine Ratio 15 (6-20) Glucose Level 104 mg/dL (70-99) Calcium Level 8.0 mg/dL (8.5-10.1) Magnesium Level 1.8 mg/dL (1.8-2.4) Total Bilirubin 0.4 mg/dL (0.2-1.0) Aspartate Amino Transf (AST/SGOT) 11 U/L (15-37) Alanine Aminotransferase (ALT/SGPT) 8 U/L (14-59) Alkaline Phosphatase 48 U/L (46-116) Total Protein 5.0 g/dL (6.4-8.2) Albumin 1.9 g/dL (3.4-5.0) Albumin/Globulin Ratio 0.6 (1.0-1.7) Assessment and Plan Assessmemt and Plan Problems Medical Problems: (1) BRODIE (acute kidney injury) Status: Acute (2) Dehydration Status: Acute (3) Hyperkalemia Status: Acute Comment Review of Relevant I have reviewed the following items josee (where applicable) has been applied. Labs Laboratory Tests Test 05/26/18 04:50 05/26/18 05:00 05/27/18 03:00 White Blood Count 3.1 x10^3/uL (4.0-11.0) 3.5 x10^3/uL (4.0-11.0) Red Blood Count 3.46 x10^6/uL (3.50-5.40) 3.49 x10^6/uL (3.50-5.40) Hemoglobin 10.8 g/dL (12.0-15.5) 11.0 g/dL (12.0-15.5) Hematocrit 31.7 % (36.0-47.0) 31.7 % (36.0-47.0) Mean Corpuscular Volume 92 fL (79-100) 91 fL (79-100) Mean Corpuscular Hemoglobin 31 pg (25-35) 31 pg (25-35) Mean Corpuscular Hemoglobin Concent 34 g/dL (31-37) 35 g/dL (31-37) Red Cell Distribution Width 16.1 % (11.5-14.5) 16.1 % (11.5-14.5) Platelet Count 46 x10^3/uL (140-400) 39 x10^3/uL (140-400) Neutrophils (%) (Auto) 59 % (31-73) 61 % (31-73) Lymphocytes (%) (Auto) 30 % (24-48) 27 % (24-48) Monocytes (%) (Auto) 7 % (0-9) 8 % (0-9) Eosinophils (%) (Auto) 3 % (0-3) 3 % (0-3) Basophils (%) (Auto) 1 % (0-3) 1 % (0-3) Neutrophils # (Auto) 1.8 x10^3uL (1.8-7.7) 2.1 x10^3uL (1.8-7.7) Lymphocytes # (Auto) 0.9 x10^3/uL (1.0-4.8) 0.9 x10^3/uL (1.0-4.8) Monocytes # (Auto) 0.2 x10^3/uL (0.0-1.1) 0.3 x10^3/uL (0.0-1.1) Eosinophils # (Auto) 0.1 x10^3/uL (0.0-0.7) 0.1 x10^3/uL (0.0-0.7) Basophils # (Auto) 0.0 x10^3/uL (0.0-0.2) 0.0 x10^3/uL (0.0-0.2) Sodium Level 137 mmol/L (136-145) 135 mmol/L (136-145) Potassium Level 3.8 mmol/L (3.5-5.1) 3.7 mmol/L (3.5-5.1) Chloride Level 107 mmol/L (98-107) 102 mmol/L (98-107) Carbon Dioxide Level 18 mmol/L (21-32) 26 mmol/L (21-32) Anion Gap 12 (6-14) 7 (6-14) Blood Urea Nitrogen 14 mg/dL (7-20) 17 mg/dL (7-20) Creatinine 1.3 mg/dL (0.6-1.0) 1.1 mg/dL (0.6-1.0) Estimated GFR (Cockcroft-Gault) 39.5 47.9 BUN/Creatinine Ratio 11 (6-20) 15 (6-20) Glucose Level 65 mg/dL (70-99) 104 mg/dL (70-99) Calcium Level 8.0 mg/dL (8.5-10.1) 8.0 mg/dL (8.5-10.1) Magnesium Level 1.3 mg/dL (1.8-2.4) 1.8 mg/dL (1.8-2.4) Total Bilirubin 0.4 mg/dL (0.2-1.0) 0.4 mg/dL (0.2-1.0) Aspartate Amino Transf (AST/SGOT) 11 U/L (15-37) 11 U/L (15-37) Alanine Aminotransferase (ALT/SGPT) < 6 U/L (14-59) 8 U/L (14-59) Alkaline Phosphatase 41 U/L (46-116) 48 U/L (46-116) Total Protein 4.9 g/dL (6.4-8.2) 5.0 g/dL (6.4-8.2) Albumin 2.1 g/dL (3.4-5.0) 1.9 g/dL (3.4-5.0) Albumin/Globulin Ratio 0.8 (1.0-1.7) 0.6 (1.0-1.7) Triglycerides Level 61 mg/dL (0-150) Cholesterol Level 63 mg/dL (0-200) LDL Cholesterol, Calculated 13 mg/dL (0-100) VLDL Cholesterol, Calculated 12 mg/dL (0-40) Non-HDL Cholesterol Calculated 25 mg/dL (0-129) HDL Cholesterol 38 mg/dL (40-60) Cholesterol/HDL Ratio 1.7 Thyroid Stimulating Hormone (TSH) 7.375 uIU/mL (0.358-3.74) Prealbumin 11.9 mg/dL (16.0-42.0) Laboratory Tests Test 05/27/18 03:00 White Blood Count 3.5 x10^3/uL (4.0-11.0) Red Blood Count 3.49 x10^6/uL (3.50-5.40) Hemoglobin 11.0 g/dL (12.0-15.5) Hematocrit 31.7 % (36.0-47.0) Mean Corpuscular Volume 91 fL (79-100) Mean Corpuscular Hemoglobin 31 pg (25-35) Mean Corpuscular Hemoglobin Concent 35 g/dL (31-37) Red Cell Distribution Width 16.1 % (11.5-14.5) Platelet Count 39 x10^3/uL (140-400) Neutrophils (%) (Auto) 61 % (31-73) Lymphocytes (%) (Auto) 27 % (24-48) Monocytes (%) (Auto) 8 % (0-9) Eosinophils (%) (Auto) 3 % (0-3) Basophils (%) (Auto) 1 % (0-3) Neutrophils # (Auto) 2.1 x10^3uL (1.8-7.7) Lymphocytes # (Auto) 0.9 x10^3/uL (1.0-4.8) Monocytes # (Auto) 0.3 x10^3/uL (0.0-1.1) Eosinophils # (Auto) 0.1 x10^3/uL (0.0-0.7) Basophils # (Auto) 0.0 x10^3/uL (0.0-0.2) Sodium Level 135 mmol/L (136-145) Potassium Level 3.7 mmol/L (3.5-5.1) Chloride Level 102 mmol/L (98-107) Carbon Dioxide Level 26 mmol/L (21-32) Anion Gap 7 (6-14) Blood Urea Nitrogen 17 mg/dL (7-20) Creatinine 1.1 mg/dL (0.6-1.0) Estimated GFR (Cockcroft-Gault) 47.9 BUN/Creatinine Ratio 15 (6-20) Glucose Level 104 mg/dL (70-99) Calcium Level 8.0 mg/dL (8.5-10.1) Magnesium Level 1.8 mg/dL (1.8-2.4) Total Bilirubin 0.4 mg/dL (0.2-1.0) Aspartate Amino Transf (AST/SGOT) 11 U/L (15-37) Alanine Aminotransferase (ALT/SGPT) 8 U/L (14-59) Alkaline Phosphatase 48 U/L (46-116) Total Protein 5.0 g/dL (6.4-8.2) Albumin 1.9 g/dL (3.4-5.0) Albumin/Globulin Ratio 0.6 (1.0-1.7) Medications Current Medications Sodium Chloride 1,000 ml @ 1,000 mls/hr 1X ONCE IV Last administered on at 18:32; Start 05/22/18 at 18:30; Stop 05/22/18 at 19:29; Status DC Ondansetron HCl (Zofran) 8 mg 1X ONCE IV Last administered on 05/22/18at 18:31 ; Start 05/22/18 at 18:30; Stop 05/22/18 at 18:31; Status DC Magnesium Sulfate/ Dextrose 100 ml @ 100 mls/hr 1X ONCE IV Last administered on 05/22/18at 23:47; Start 05/22/18 at 23:30; Stop 05/23/18 at 00:29; Status DC Sodium Chloride 1,000 ml @ 50 mls/hr Q20H IV Last administered on 05/25/18at 20 :24; Start 05/22/18 at 23:30; Stop 05/26/18 at 09:14; Status DC Amlodipine Besylate (Norvasc) 5 mg DAILY PO Last administered on 05/27/18 08: 16; Start 05/23/18 at 09:00 Apixaban (Eliquis) 5 mg BID PO Last administered on 05/26/18at 09:58; Start 05/23/18 at 09:00; Stop 05/26/18 at 12:57; Status DC Atorvastatin Calcium (Lipitor) 40 mg QHS PO Last administered on 05/25/18 20: 23; Start 05/23/18 at 21:00; Stop 05/26/18 at 12:57; Status DC Levetiracetam (Keppra) 500 mg BID PO Last administered on 05/27/18 08:16; Start 05/23/18 at 09:00 Ondansetron HCl (Zofran Odt) 4 mg Q6HRS PO Last administered on 05/27/18at 05:53 ; Start 05/23/18 at 00:00 Citalopram Hydrobromide (CeleXA) 20 mg DAILY PO Last administered on 05/27/18at 08:16; Start 05/23/18 at 09:00 Pantoprazole Sodium (Protonix) 40 mg DAILYAC PO Last administered on 05/27/18 08:16; Start 05/23/18 at 07:30 Info (Anti-Coagulation Monitoring By Pharmacy) 1 each PRN DAILY PRN MC SEE COMMENTS Last administered on 05/25/18 15:19; Start 05/25/18 at 15:15 Nicotine (Nicoderm Cq 14mg) 1 patch PRN DAILY PRN TD SMOKING CESSATION Last administered on 05/25/18at 17:20; Start 05/25/18 at 16:45 Magnesium Sulfate 50 ml @ 25 mls/hr PRN DAILY PRN IV for Mag < 1.7 on am labs Last administered on 05/26/18at 12:49; Start 05/26/18 at 09:15 Amino Acids/ Glycerin/ Electrolytes 1,000 ml @ 80 mls/hr [id number] IV Last administered on 05/27/18at 02:19; Start 05/26/18 at 09:15; Stop 05/27/18 at 09:04 ; Status DC Sodium Bicarbonate (Sodium Bicarb Adult 8.4% Syr) 50 meq Q2HR IV Last administered on 05/26/18at 12:49; Start 05/26/18 at 10:00; Stop 05/26/18 at 12:01 ; Status DC Apixaban (Eliquis) 2.5 mg BID PO Last administered on 05/27/18at 08:16; Start 05/26/18 at 21:00 Metoprolol Tartrate (Lopressor Vial) 5 mg PRN Q6HRS PRN IVP HYPERTENSION, SEE COMMENTS; Start 05/26/18 at 12:45 Magnesium Sulfate 3 gm/Dextrose 106 ml @ 35.333 mls/ hr 1X ONCE IV ; Start at 14:15; Stop 05/26/18 at 14:18; Status DC Active Scripts Active Reported Levetiracetam 500 Mg Tablet 1 Tab PO BID Eliquis (Apixaban) 5 Mg Tablet 5 Mg PO BID Lisinopril 20 Mg Tablet 1 Tab PO DAILY Escitalopram Oxalate 10 Mg Tablet 1 Tab PO DAILY Amlodipine Besylate 5 Mg Tablet 5 Mg PO DAILY Ciprofloxacin Hcl 250 Mg Tablet 1 Tab PO BID Omeprazole 40 Mg Capsule.dr 40 Mg PO DAILY Zofran Odt (Ondansetron) 4 Mg Tab.rapdis 1 Tab SL Q6HRS Vitals/I & O Vital Sign - Last 24 Hours 05/26/18 05/26/18 05/26/18 05/26/18 09:59 10:49 15:00 19:00 Temp 97.7 97.7 98.3 97.7 97.7 98.3 Pulse 59 60 74 73 Resp 18 18 18 B/P (MAP) 123/68 128/65 (86) 120/69 (86) 133/81 (98) Pulse Ox 98 99 94 O2 Delivery Room Air Room Air Room Air 05/26/18 05/26/18 05/27/18 05/27/18 20:24 23:00 03:00 07:00 Temp 98.1 98.3 97.8 98.1 98.3 97.8 Pulse 69 92 67 Resp 18 B/P (MAP) 142/63 (89) 146/84 (104) 144/83 (103) Pulse Ox 94 94 98 O2 Delivery Room Air Room Air Room Air Room Air 05/27/18 08:16 Pulse 67 B/P (MAP) 144/83 Intake and Output 05/26/18 05/26/18 05/27/18 15:00 23:00 07:00 Intake Total 500 ml 240 ml 1400 ml Output Total 200 ml Balance 500 ml 40 ml 1400 ml Nutrition Consultation Dietary Evaluation: Recommendations by RD: Increase Calorie Intake Comments: continue with renal diet Expected Outcomes/Goals: to meet > 75% est nutr needs- met with po intake ~ 60% of meals, met at times, goal ongoing Interpretation of weight loss: >20% in 1 year Malnutrition Findings: Food and Nutrition Intake (Sev: <50% est energy req 5days Weight Status: Appropriate VAUGHN MARK MD May 27, 2018 09:19
--- NOTE | 2018-05-27 10:39 | PDOC ---
CARDIO Progress Notes Date and Time Date of Service 05/27/18 Time of Evaluation 1020 Subjective Subjective: No Chest Pain, No shortness of breath, Other (wanting to go home ) Vitals Vitals Vital Signs Date Time Temp Pulse Resp B/P (MAP) Pulse Ox O2 Delivery O2 Flow Rate FiO2 05/27/18 08:16 67 144/83 05/27/18 08:00 Room Air 05/27/18 07:00 97.8 18 98 97.8 Weight Weight [ ] Input and Output Intake and Output Intake and Output 05/27/18 07:00 Intake Total 2140 ml Output Total 200 ml Balance 1940 ml Intake Oral 1140 ml IV Total 1000 ml Output Urine Total 200 ml # Voids 2 Laboratory Labs Laboratory Tests Test 05/27/18 03:00 White Blood Count 3.5 x10^3/uL (4.0-11.0) Red Blood Count 3.49 x10^6/uL (3.50-5.40) Hemoglobin 11.0 g/dL (12.0-15.5) Hematocrit 31.7 % (36.0-47.0) Mean Corpuscular Volume 91 fL (79-100) Mean Corpuscular Hemoglobin 31 pg (25-35) Mean Corpuscular Hemoglobin Concent 35 g/dL (31-37) Red Cell Distribution Width 16.1 % (11.5-14.5) Platelet Count 39 x10^3/uL (140-400) Neutrophils (%) (Auto) 61 % (31-73) Lymphocytes (%) (Auto) 27 % (24-48) Monocytes (%) (Auto) 8 % (0-9) Eosinophils (%) (Auto) 3 % (0-3) Basophils (%) (Auto) 1 % (0-3) Neutrophils # (Auto) 2.1 x10^3uL (1.8-7.7) Lymphocytes # (Auto) 0.9 x10^3/uL (1.0-4.8) Monocytes # (Auto) 0.3 x10^3/uL (0.0-1.1) Eosinophils # (Auto) 0.1 x10^3/uL (0.0-0.7) Basophils # (Auto) 0.0 x10^3/uL (0.0-0.2) Sodium Level 135 mmol/L (136-145) Potassium Level 3.7 mmol/L (3.5-5.1) Chloride Level 102 mmol/L (98-107) Carbon Dioxide Level 26 mmol/L (21-32) Anion Gap 7 (6-14) Blood Urea Nitrogen 17 mg/dL (7-20) Creatinine 1.1 mg/dL (0.6-1.0) Estimated GFR (Cockcroft-Gault) 47.9 BUN/Creatinine Ratio 15 (6-20) Glucose Level 104 mg/dL (70-99) Calcium Level 8.0 mg/dL (8.5-10.1) Magnesium Level 1.8 mg/dL (1.8-2.4) Total Bilirubin 0.4 mg/dL (0.2-1.0) Aspartate Amino Transf (AST/SGOT) 11 U/L (15-37) Alanine Aminotransferase (ALT/SGPT) 8 U/L (14-59) Alkaline Phosphatase 48 U/L (46-116) Total Protein 5.0 g/dL (6.4-8.2) Albumin 1.9 g/dL (3.4-5.0) Albumin/Globulin Ratio 0.6 (1.0-1.7) Physical Exam HEENT: Neck Supple W Full Motion Chest: Symmetric LUNGS: Clear to Auscultation Heart: S1S2, RRR Abdomen: Soft N/T Extremities: No Edema Neurology: alert, other (anxious/tearful) Assessment Assessment 1. Acute CVA; left parietal infarct. Recent left posterior parietal lobe infarct with expressive aphasia 2. PAFIB: tele noted episodes of AFIB with RVR overnight. 3. Pancytopenia; PLT 39. Hematology following. Declined further workup with [facility]x. . 4. BRODIE on CKD3; resolved 5. CAD: previous PCI/stent 7. Hypertension; controlled 8. Dyslipidemia 9. Hypothyroidism; treatment as per PCP 10. Metabolic encephalopathy Recommendations Continue secondary prevention measures. Add low-dose BB for rate control Hematology recs noted; will discontinue Eliquis. Will re-evaluate for ASA on an outpatient basis Consider palliative care consult to address goal of care. SARAH FOX APRN May 27, 2018 10:39
[2018-05-27 10:54] VITALS: BP 119/70
[2018-05-27] MEDS ORDERED: METOPROLOL TART IMMED RELEASE 25 MG TABLET. PO SCH (11:00)
--- NOTE | 2018-05-27 14:16 | PDOC3 ---
Discharge Summary Date of Admission: May 23, 2018 Date of Discharge: May 27, 2018 Follow-Up: 1-2 days Admitting Diagnosis comment: discharge diagnosis Assessment/Plan IMPRESSION Acute punctate infarct of the posterior left parietal lobe. loss of the normal signal void within the left vertebral artery. This could be due to occlusion. Acute renal failure, improving, hypovolemic/ vasomotor dementia Atrophic right kidney with multiple low attenuating lesions most likely simple cysts. Echogenic appearing bilateral kidneys likely due to medical renal disease. Mildly atrophic appearing right kidney. hyperlipidemia hypertension thrombocytopenia, follow, consult heme pt refused work-up ama plan iv fluid support d/c nephrology consult noted hold nephrotoxic drugs daily labs renal us sq heparin dvt prophylaxis d/c hold [place] [facility] head reviewed insists on discharge today with [facility] cardiology consult re treatment of htn in setting of bradycardia with norvasc, as well as treatment with eliquis in setting of acute cva Vitals Vitals Vital Signs Date Time Temp Pulse Resp B/P (MAP) Pulse Ox O2 Delivery O2 Flow Rate FiO2 05/27/18 08:16 67 144/83 05/27/18 07:00 97.8 18 98 Room Air 97.8 Physical Exam Physical Exam Eyes: PERRLA, EOMI, Neck: Normal range of motion, no tenderness, supple, no stridor. [] Cardiovascular:Heart rate regular rhythm, no murmur [] Lungs & Thorax: Bilateral breath sounds clear to auscultation [] Abdomen: Bowel sounds normal, soft, no tenderness, no masses, no pulsatile masses. [] Skin: Warm, dry, no erythema, no rash. [] Back: No tenderness, no CVA tenderness. [] Extremities: No tenderness, no edema. [] Neurologic: no focal deficits noted. [] Psychologic: Affect normal, , mood normal. [] General: Cooperative HEENT: Atraumatic, PERRLA Abdomen: Normal bowel sounds, Soft General: Cooperative, No acute distress, Heart: Regular rate, Normal S1, Normal S2 Lungs: Clear Abdomen: Soft, No tenderness Extremities: No clubbing, No cyanosis, No edema Skin: No breakdown, No significant lesion FINAL DIAGNOSIS Problems Medical Problems: (1) BRODIE (acute kidney injury) Status: Acute (2) Dehydration Status: Acute (3) Hyperkalemia Status: Acute Brief Hospital Course Ms. Carmen is a 77 old [sex] who presented with [ cva, renal failure, acute] CONDITION AT DISCHARGE: Improved Discharge Medications Current Medications Sodium Chloride 1,000 ml @ 1,000 mls/hr 1X ONCE IV Last administered on at 18:32; Start 05/22/18 at 18:30; Stop 05/22/18 at 19:29; Status DC Ondansetron HCl (Zofran) 8 mg 1X ONCE IV Last administered on 05/22/18at 18:31 ; Start 05/22/18 at 18:30; Stop 05/22/18 at 18:31; Status DC Magnesium Sulfate/ Dextrose 100 ml @ 100 mls/hr 1X ONCE IV Last administered on 05/22/18at 23:47; Start 05/22/18 at 23:30; Stop 05/23/18 at 00:29; Status DC Sodium Chloride 1,000 ml @ 50 mls/hr Q20H IV Last administered on 05/25/18at 20 :24; Start 05/22/18 at 23:30; Stop 05/26/18 at 09:14; Status DC Amlodipine Besylate (Norvasc) 5 mg DAILY PO Last administered on 05/27/18 08: 16; Start 05/23/18 at 09:00 Apixaban (Eliquis) 5 mg BID PO Last administered on 05/26/18at 09:58; Start 05/23/18 at 09:00; Stop 05/26/18 at 12:57; Status DC Atorvastatin Calcium (Lipitor) 40 mg QHS PO Last administered on 05/25/18at 20: 23; Start 05/23/18 at 21:00; Stop 05/26/18 at 12:57; Status DC Levetiracetam (Keppra) 500 mg BID PO Last administered on 05/27/18 08:16; Start 05/23/18 at 09:00 Ondansetron HCl (Zofran Odt) 4 mg Q6HRS PO Last administered on 05/27/18at 11:13 ; Start 05/23/18 at 00:00 Citalopram Hydrobromide (CeleXA) 20 mg DAILY PO Last administered on 05/27/18at 08:16; Start 05/23/18 at 09:00 Pantoprazole Sodium (Protonix) 40 mg DAILYAC PO Last administered on 05/27/18at 08:16; Start 05/23/18 at 07:30 Info (Anti-Coagulation Monitoring By Pharmacy) 1 each PRN DAILY PRN MC SEE COMMENTS Last administered on 05/25/18at 15:19; Start 05/25/18 at 15:15 Nicotine (Nicoderm Cq 14mg) 1 patch PRN DAILY PRN TD SMOKING CESSATION Last administered on 05/25/18at 17:20; Start 05/25/18 at 16:45 Magnesium Sulfate 50 ml @ 25 mls/hr PRN DAILY PRN IV for Mag < 1.7 on am labs Last administered on 05/26/18at 12:49; Start 05/26/18 at 09:15 Amino Acids/ Glycerin/ Electrolytes 1,000 ml @ 80 mls/hr [id number] IV Last administered on 05/27/18at 02:19; Start 05/26/18 at 09:15; Stop 05/27/18 at 09:04 ; Status DC Sodium Bicarbonate (Sodium Bicarb Adult 8.4% Syr) 50 meq Q2HR IV Last administered on 05/26/18at 12:49; Start 05/26/18 at 10:00; Stop 05/26/18 at 12:01 ; Status DC Apixaban (Eliquis) 2.5 mg BID PO Last administered on 05/27/18at 08:16; Start 05/26/18 at 21:00 Metoprolol Tartrate (Lopressor Vial) 5 mg PRN Q6HRS PRN IVP HYPERTENSION, SEE COMMENTS; Start 05/26/18 at 12:45 Magnesium Sulfate 3 gm/Dextrose 106 ml @ 35.333 mls/ hr 1X ONCE IV ; Start at 14:15; Stop 05/26/18 at 14:18; Status DC Metoprolol Tartrate (Lopressor) 12.5 mg BID PO Last administered on 05/27/18at 11:14; Start 05/27/18 at 11:00 Active Scripts Active Reported Levetiracetam 500 Mg Tablet 1 Tab PO BID Eliquis (Apixaban) 5 Mg Tablet 5 Mg PO BID Lisinopril 20 Mg Tablet 1 Tab PO DAILY Escitalopram Oxalate 10 Mg Tablet 1 Tab PO DAILY Amlodipine Besylate 5 Mg Tablet 5 Mg PO DAILY Ciprofloxacin Hcl 250 Mg Tablet 1 Tab PO BID Omeprazole 40 Mg Capsule.dr 40 Mg PO DAILY Zofran Odt (Ondansetron) 4 Mg Tab.rapdis 1 Tab SL Q6HRS Vital Signs Vital Signs Date Time Temp Pulse Resp B/P (MAP) Pulse Ox O2 Delivery O2 Flow Rate FiO2 05/27/18 11:14 77 119/70 05/27/18 10:54 97.7 18 98 Room Air 97.7 Labs Laboratory Tests Test 05/26/18 04:50 05/26/18 05:00 05/27/18 03:00 White Blood Count 3.1 x10^3/uL (4.0-11.0) 3.5 x10^3/uL (4.0-11.0) Red Blood Count 3.46 x10^6/uL (3.50-5.40) 3.49 x10^6/uL (3.50-5.40) Hemoglobin 10.8 g/dL (12.0-15.5) 11.0 g/dL (12.0-15.5) Hematocrit 31.7 % (36.0-47.0) 31.7 % (36.0-47.0) Mean Corpuscular Volume 92 fL (79-100) 91 fL (79-100) Mean Corpuscular Hemoglobin 31 pg (25-35) 31 pg (25-35) Mean Corpuscular Hemoglobin Concent 34 g/dL (31-37) 35 g/dL (31-37) Red Cell Distribution Width 16.1 % (11.5-14.5) 16.1 % (11.5-14.5) Platelet Count 46 x10^3/uL (140-400) 39 x10^3/uL (140-400) Neutrophils (%) (Auto) 59 % (31-73) 61 % (31-73) Lymphocytes (%) (Auto) 30 % (24-48) 27 % (24-48) Monocytes (%) (Auto) 7 % (0-9) 8 % (0-9) Eosinophils (%) (Auto) 3 % (0-3) 3 % (0-3) Basophils (%) (Auto) 1 % (0-3) 1 % (0-3) Neutrophils # (Auto) 1.8 x10^3uL (1.8-7.7) 2.1 x10^3uL (1.8-7.7) Lymphocytes # (Auto) 0.9 x10^3/uL (1.0-4.8) 0.9 x10^3/uL (1.0-4.8) Monocytes # (Auto) 0.2 x10^3/uL (0.0-1.1) 0.3 x10^3/uL (0.0-1.1) Eosinophils # (Auto) 0.1 x10^3/uL (0.0-0.7) 0.1 x10^3/uL (0.0-0.7) Basophils # (Auto) 0.0 x10^3/uL (0.0-0.2) 0.0 x10^3/uL (0.0-0.2) Sodium Level 137 mmol/L (136-145) 135 mmol/L (136-145) Potassium Level 3.8 mmol/L (3.5-5.1) 3.7 mmol/L (3.5-5.1) Chloride Level 107 mmol/L (98-107) 102 mmol/L (98-107) Carbon Dioxide Level 18 mmol/L (21-32) 26 mmol/L (21-32) Anion Gap 12 (6-14) 7 (6-14) Blood Urea Nitrogen 14 mg/dL (7-20) 17 mg/dL (7-20) Creatinine 1.3 mg/dL (0.6-1.0) 1.1 mg/dL (0.6-1.0) Estimated GFR (Cockcroft-Gault) 39.5 47.9 BUN/Creatinine Ratio 11 (6-20) 15 (6-20) Glucose Level 65 mg/dL (70-99) 104 mg/dL (70-99) Calcium Level 8.0 mg/dL (8.5-10.1) 8.0 mg/dL (8.5-10.1) Magnesium Level 1.3 mg/dL (1.8-2.4) 1.8 mg/dL (1.8-2.4) Total Bilirubin 0.4 mg/dL (0.2-1.0) 0.4 mg/dL (0.2-1.0) Aspartate Amino Transf (AST/SGOT) 11 U/L (15-37) 11 U/L (15-37) Alanine Aminotransferase (ALT/SGPT) < 6 U/L (14-59) 8 U/L (14-59) Alkaline Phosphatase 41 U/L (46-116) 48 U/L (46-116) Total Protein 4.9 g/dL (6.4-8.2) 5.0 g/dL (6.4-8.2) Albumin 2.1 g/dL (3.4-5.0) 1.9 g/dL (3.4-5.0) Albumin/Globulin Ratio 0.8 (1.0-1.7) 0.6 (1.0-1.7) Triglycerides Level 61 mg/dL (0-150) Cholesterol Level 63 mg/dL (0-200) LDL Cholesterol, Calculated 13 mg/dL (0-100) VLDL Cholesterol, Calculated 12 mg/dL (0-40) Non-HDL Cholesterol Calculated 25 mg/dL (0-129) HDL Cholesterol 38 mg/dL (40-60) Cholesterol/HDL Ratio 1.7 Thyroid Stimulating Hormone (TSH) 7.375 uIU/mL (0.358-3.74) Prealbumin 11.9 mg/dL (16.0-42.0) Laboratory Tests Test 05/27/18 03:00 White Blood Count 3.5 x10^3/uL (4.0-11.0) Red Blood Count 3.49 x10^6/uL (3.50-5.40) Hemoglobin 11.0 g/dL (12.0-15.5) Hematocrit 31.7 % (36.0-47.0) Mean Corpuscular Volume 91 fL (79-100) Mean Corpuscular Hemoglobin 31 pg (25-35) Mean Corpuscular Hemoglobin Concent 35 g/dL (31-37) Red Cell Distribution Width 16.1 % (11.5-14.5) Platelet Count 39 x10^3/uL (140-400) Neutrophils (%) (Auto) 61 % (31-73) Lymphocytes (%) (Auto) 27 % (24-48) Monocytes (%) (Auto) 8 % (0-9) Eosinophils (%) (Auto) 3 % (0-3) Basophils (%) (Auto) 1 % (0-3) Neutrophils # (Auto) 2.1 x10^3uL (1.8-7.7) Lymphocytes # (Auto) 0.9 x10^3/uL (1.0-4.8) Monocytes # (Auto) 0.3 x10^3/uL (0.0-1.1) Eosinophils # (Auto) 0.1 x10^3/uL (0.0-0.7) Basophils # (Auto) 0.0 x10^3/uL (0.0-0.2) Sodium Level 135 mmol/L (136-145) Potassium Level 3.7 mmol/L (3.5-5.1) Chloride Level 102 mmol/L (98-107) Carbon Dioxide Level 26 mmol/L (21-32) Anion Gap 7 (6-14) Blood Urea Nitrogen 17 mg/dL (7-20) Creatinine 1.1 mg/dL (0.6-1.0) Estimated GFR (Cockcroft-Gault) 47.9 BUN/Creatinine Ratio 15 (6-20) Glucose Level 104 mg/dL (70-99) Calcium Level 8.0 mg/dL (8.5-10.1) Magnesium Level 1.8 mg/dL (1.8-2.4) Total Bilirubin 0.4 mg/dL (0.2-1.0) Aspartate Amino Transf (AST/SGOT) 11 U/L (15-37) Alanine Aminotransferase (ALT/SGPT) 8 U/L (14-59) Alkaline Phosphatase 48 U/L (46-116) Total Protein 5.0 g/dL (6.4-8.2) Albumin 1.9 g/dL (3.4-5.0) Albumin/Globulin Ratio 0.6 (1.0-1.7) Allergies Allergies Coded Allergies Type Severity Reaction Last Updated Verified pneumococcal vaccine Allergy Unknown Swelling 05/22/18 Yes morphine Adverse Reaction Severe nausea/abdominal pain 12/24/14 Yes Disposition/Orders: D/C to Home w/ HH Patient Instructions d/c planning 34 min VAUGHN MARK MD May 27, 2018 14:16
[2018-05-27] MEDS ORDERED: METO25TA4 PO (14:19)
--- NOTE | 2018-05-27 14:19 | DISCH ---
DISCHARGE WITH HOME HEALTH DISCHARGE INFORMATION: Final Diagnosis: Problems Medical Problems: (1) BRODIE (acute kidney injury) Status: Acute (2) Dehydration Status: Acute (3) Hyperkalemia Status: Acute Condition on Discharge: Stable CODE STATUS: Code Status: Full HOME HEALTH: Face to Face: I certify this patient is under my care and that I, or a nurse practitioner or physician's assistant media buyer working with me, had a face to face encounter that meets the physician face to face encounter requirements with this patient on []. Medical Complications: CVA, Dementia Physical Therapy For: Evalulation/Treatment Occupational Therapy For: Evaluation/Treatment Speech Language Pathology For: Evaluation/Treatment Home Health Aide For: Self-care MOBILE PHONE SALESPERSON For: Community Resources Pt Meets Homebound Status: Poor coordination w/ amb. POST DISCHARGE ORDERS: Activity Instructions for Disc: Resume previous activity Weight Bearing Status after Di: Other, see below Bathing Instructions: Shower-keep dressing dry DIET AFTER DISCHARGE: Cardiac Wound/Incision Care: Keep wound/cast CDI CHECKS AFTER DISCHARGE: Checks after discharge: Check blood press - daily TREATMENT/EQUIPMENT ORDERS: Adaptive Equipment Issued: None CERTIFICATION STATEMENT: Certification Statement: Certification Statement: Based on the above finding, I certify that this patient is confined to the home and needs intermittent custodial care, physical therapy and/or speech therapy, or continues to need occupational therapy.~ This patient is under my care, and I have initiated the establishment of the plan of care.~ This patient will be followed by myself or a community physician who will periodically review the plan of care. Home Meds Reported Medications Levetiracetam (LEVETIRACETAM) 500 Mg Tablet, 1 TAB PO BID for seizure d/o, #180 TAB 3 Refills 05/22/18 Apixaban (ELIQUIS) 5 Mg Tablet, 5 MG PO BID for cva, TAB 05/22/18 Lisinopril (LISINOPRIL) 20 Mg Tablet, 1 TAB PO DAILY for hypertension, #30 TAB 5 Refills 05/22/18 Escitalopram Oxalate (ESCITALOPRAM OXALATE) 10 Mg Tablet, 1 TAB PO DAILY for depression, #30 TAB 3 Refills 05/22/18 Amlodipine Besylate (AMLODIPINE BESYLATE) 5 Mg Tablet, 5 MG PO DAILY for hypertension, TAB 05/22/18 Ciprofloxacin Hcl (CIPROFLOXACIN HCL) 250 Mg Tablet, 1 TAB PO BID for uti, #10 TAB 05/22/18 Omeprazole (OMEPRAZOLE) 40 Mg Capsule.dr, 40 MG PO DAILY 05/24/17 Ondansetron (ZOFRAN ODT) 4 Mg Tab.rapdis, 1 TAB SL Q6HRS, #15 TAB 12/27/14 Discontinued Scripts Atorvastatin Calcium (ATORVASTATIN CALCIUM) 40 Mg Tablet, 40 MG PO QHS for 30 Days, #30 TAB Prov:CLARA JUNIOR MD 05/27/17 VAUGHN MARK MD May 27, 2018 14:19
[2018-05-27 15:06] VITALS: BP 129/75
--- NOTE | 2018-05-27 17:30 | PDOC ---
PROGRESS NOTES Assessment Assessment Small acute/subacute left parietal infarct. Speech problem. Metabolic encephalopathy. AFib. HTN. HLD. AKD. Seizure, Hx. Hypothyroidism. Dementia features. Recent large left posterior parietal lobe infarct. RECOMMENDATIONS/PLAN: She has been treated with Eliquis. 2.5 mg bid. She has been taking Keppra 500 mg bid. Treat medical diseases. OT/PT. FU with PCP. Discussed with her granddaughter at bedside on a daily basis. Past Medical History A-Fib, CVA, Depression, GERD, High Cholesterol, Hypertension, Seizure, THROMBOCYTOPENIA Cardiovascular: CAD, HTN GI: GERD Hepatobiliary: No pertinent hx Musculoskeletal: Osteoarthritis, Other Renal/: Chronic renal failure Past Surgical History Appendectomy, Cholecystectomy, Cataract Removal, , Total hip replacement, Other Family History Hypertension Social History Smoke: No ALCOHOL: none Drugs: None Allergies Coded Allergies: pneumococcal vaccine (Verified Allergy, Unknown, Swelling, 05/22/18) family reports blackish-purple down entire arm of injection morphine (Verified Adverse Reaction, Severe, nausea/abdominal pain, 12/24/14) MEDICATIONS: Refer to [facility] REVIEW OF SYSTEMS: Constitutional: No malnutrition, weight loss, cachexia. Head: No traumatic brain or head injury. Skin: No edema, or rash. Ear: No infection. Eyes: No vision loss, or diplopia. Nose: No bleeding or purulent discharges. Hearing: Hearing loss. Neck: No injury. Breast: No history of cancer, masses, or discharges. Cardiac: CAD, AFib, HTN, HLD Pulmonary: No COPD. GI: No GI Ulcer, GI bleeding Urinary/genital: UTI. Endocrine: No cousin face, craniofacial dysmorphism, polydactyly. Skeletomuscular: No muscular atrophy, deformity. Neurological: see HP. Psychiatric: Denies drug use/abuse. Otherwise, not -srbxn review of systems. PHYSICAL EXAMINATION: General appearance in subacute distress. HEENT: Normocephalic and nontraumatic. Eyes, nose, ears, and throat are unremarkable. Hearing decrease. Neck is supple. No lymphadenopathy. No bruits are heard over the carotid artery. No Crepitus. Cardiovascular: S1, S2, regular rate and rhythm. Pulmonary: Clear to auscultation bilaterally. Abdomen: Bowel sounds are positive. Extremities: No rash, lesions, or edema. No restriction of range of motion NEUROLOGICAL EXAMINATION: Awake. Partially oriented to time, and knew place and person. PERRL. EOMI. CN: no focal findings. Muscle tone: within normal. Muscle strength: 4+ DTR: 2- Plantar reflex: Neutral response bilaterally Gait: not examined in bed. Sensory exam: no acute abnormal findings. No cerebellar signs elicited. F-T-N test fine. Objective Objective Vital Signs Date Time Temp Pulse Resp B/P (MAP) Pulse Ox O2 Delivery O2 Flow Rate FiO2 05/27/18 15:06 97.7 65 18 129/75 (93) 97 Room Air 97.7 Intake and Output 05/27/18 07:00 Intake Total 2140 ml Output Total 200 ml Balance 1940 ml Intake Oral 1140 ml IV Total 1000 ml Output Urine Total 200 ml # Voids 2 Vitals Signs Vitals VS - Last 72 Hours, by Label Date Time Temp Pulse Resp B/P (MAP) Pulse Ox O2 Delivery O2 Flow Rate FiO2 05/27/18 15:06 97.7 65 18 129/75 (93) 97 Room Air 97.7 05/27/18 11:14 77 119/70 05/27/18 10:54 97.7 77 18 119/70 (86) 98 Room Air 97.7 05/27/18 08:16 67 144/83 05/27/18 08:00 Room Air 05/27/18 07:00 97.8 67 18 144/83 (103) 98 Room Air 97.8 05/27/18 03:00 98.3 92 18 146/84 (104) 94 Room Air 98.3 05/26/18 23:00 98.1 69 18 142/63 (89) 94 Room Air 98.1 05/26/18 20:24 Room Air 05/26/18 19:00 98.3 73 18 133/81 (98) 94 Room Air 98.3 05/26/18 15:00 97.7 74 18 120/69 (86) 99 Room Air 97.7 05/26/18 10:49 97.7 60 18 128/65 (86) 98 Room Air 97.7 05/26/18 09:59 59 123/68 05/26/18 08:00 Room Air 05/26/18 07:00 97.7 59 18 123/68 (86) 97 Room Air 97.7 Laboratory Laboratory Laboratory Tests Test 05/27/18 03:00 White Blood Count 3.5 x10^3/uL (4.0-11.0) Red Blood Count 3.49 x10^6/uL (3.50-5.40) Hemoglobin 11.0 g/dL (12.0-15.5) Hematocrit 31.7 % (36.0-47.0) Mean Corpuscular Volume 91 fL (79-100) Mean Corpuscular Hemoglobin 31 pg (25-35) Mean Corpuscular Hemoglobin Concent 35 g/dL (31-37) Red Cell Distribution Width 16.1 % (11.5-14.5) Platelet Count 39 x10^3/uL (140-400) Neutrophils (%) (Auto) 61 % (31-73) Lymphocytes (%) (Auto) 27 % (24-48) Monocytes (%) (Auto) 8 % (0-9) Eosinophils (%) (Auto) 3 % (0-3) Basophils (%) (Auto) 1 % (0-3) Neutrophils # (Auto) 2.1 x10^3uL (1.8-7.7) Lymphocytes # (Auto) 0.9 x10^3/uL (1.0-4.8) Monocytes # (Auto) 0.3 x10^3/uL (0.0-1.1) Eosinophils # (Auto) 0.1 x10^3/uL (0.0-0.7) Basophils # (Auto) 0.0 x10^3/uL (0.0-0.2) Sodium Level 135 mmol/L (136-145) Potassium Level 3.7 mmol/L (3.5-5.1) Chloride Level 102 mmol/L (98-107) Carbon Dioxide Level 26 mmol/L (21-32) Anion Gap 7 (6-14) Blood Urea Nitrogen 17 mg/dL (7-20) Creatinine 1.1 mg/dL (0.6-1.0) Estimated GFR (Cockcroft-Gault) 47.9 BUN/Creatinine Ratio 15 (6-20) Glucose Level 104 mg/dL (70-99) Calcium Level 8.0 mg/dL (8.5-10.1) Magnesium Level 1.8 mg/dL (1.8-2.4) Total Bilirubin 0.4 mg/dL (0.2-1.0) Aspartate Amino Transf (AST/SGOT) 11 U/L (15-37) Alanine Aminotransferase (ALT/SGPT) 8 U/L (14-59) Alkaline Phosphatase 48 U/L (46-116) Total Protein 5.0 g/dL (6.4-8.2) Albumin 1.9 g/dL (3.4-5.0) Albumin/Globulin Ratio 0.6 (1.0-1.7) Medication Medications Current Medications Apixaban (Eliquis) 2.5 mg BID PO Last administered on 05/27/18at 08:16; Start 05/26/18 at 21:00; Stop 05/27/18 at 15:02; Status DC Metoprolol Tartrate (Lopressor) 12.5 mg BID PO Last administered on 05/27/18at 11:14; Start 05/27/18 at 11:00 Comment Review of Relevant I have reviewed the following items josee (where applicable) has been applied. GARRETT BUTLER MD May 27, 2018 17:30
[2018-05-28 11:04] LABS: WHITE BLOOD COUNT 3.5 x10^3/uL (4.0-11.0)
== END 2018-05-27 16:20 | disposition home health service (06) | DRG 64 ==
LOC: ER 17:02 → 5 SOUTH 19:46
PROVIDERS: ADMIT Internal Medicine; ATTEND Internal Medicine
DX: I63.9 Cerebral infarction, unspecified (principal); G93.41 Metabolic encephalopathy; D61.818 Other pancytopenia; N17.9 Acute kidney failure, unspecified; I10 Essential (primary) hypertension; I69.320 Aphasia following cerebral infarction; R56.9 Unspecified convulsions; K21.9 Gastro-esophageal reflux disease without esophagitis; I48.0 Paroxysmal atrial fibrillation; N18.3 Chronic kidney disease, stage 3 (moderate); I12.9 Hypertensive chronic kidney disease with stage 1 through stage 4 chronic kidney disease, or unspecified chronic kidney disease; E78.00 Pure hypercholesterolemia, unspecified; F32.9 Major depressive disorder, single episode, unspecified; Z90.49 Acquired absence of other specified parts of digestive tract; E86.0 Dehydration; E87.5 Hyperkalemia; I25.10 Atherosclerotic heart disease of native coronary artery without angina pectoris; M19.90 Unspecified osteoarthritis, unspecified site; F03.90 Unspecified dementia, unspecified severity, without behavioral disturbance, psychotic disturbance, mood disturbance, and anxiety; Z79.01 Long term (current) use of anticoagulants; E78.5 Hyperlipidemia, unspecified; E03.9 Hypothyroidism, unspecified; Z79.899 Other long term (current) drug therapy; Z96.649 Presence of unspecified artificial hip joint; E83.42 Hypomagnesemia; E86.1 Hypovolemia; F17.210 Nicotine dependence, cigarettes, uncomplicated; Z82.49 Family history of ischemic heart disease and other diseases of the circulatory system; F41.9 Anxiety disorder, unspecified
CPT/HCPCS: 36415; 70450; 70551; 74176; 76770; 80048; 80053; 80061; 81001; 82607; 83690; 83735; 84134; 84443; 84484; 85025; 85610; 85730; 93005; 93306; 93880; 96361; 96374; A4314; J2405; J3475; J7030; P9612; Q0162; 92610; 99285-25